=== PATIENT | female | born 1970 | race Caucasian/White ===

== ENCOUNTER 2020-04-04 22:52 | Inpatient (IN) | payer MEDICARE, MEDICAID, SELFPAY ==
[2020-04-04 23:02] VITALS: BP 118/77; PULSE 98; RESP 18; TEMP 36.1; O2SAT 97; BMI 25.0
--- NOTE | 2020-04-04 23:16 | W.ED.PSYCH ---
HPI - Psych General: Chief Complaint: Psychiatric Symptoms Stated Complaint: SEEING THINGS Time Seen by Provider: 04/04/20 22:58 History of Present Illness: HPI Narrative: Patient is a 49-year-old female who comes to the ED via EMS with paranoia and hallucinations. Patient reports hearing voices that are not there that keep telling her that she won the lottery. She also says there is this man that can control her mind and spies on her through her phone. She also says that this mariposa wants the home that she lives in currently. Patient says she has a history of drug abuse and has used cocaine and meth in the past. Denies any recent drug use. Patient says last night she was suicidal but denies SI or HI today. She says she takes risperidone currently, but was in incarcerated for 6 days little over a week ago and was not allowed to take her meds then. She says she took a dose of risperidone last night. Patient says she is willing to be admitted into stress unit and knows that she needs help with her voices in her head. Associated symptoms: Reports auditory hallucinations and visual hallucinations; Deny homicidal ideation or suicidal ideation Review of Systems Const: Denies: fever(s), chills or fatigue Eyes: Denies: change in vision or eye discomfort ENMT: Denies: throat pain, odynophagia, nasal discharge or nasal congestion Card: Denies: chest pain, palpitations, edema, swelling of feet/ankles, dyspnea on exertion or orthopnea Resp: Denies: dyspnea, productive cough or non-productive cough GI: Denies: abdominal pain, nausea, vomiting, diarrhea, constipation or hematochezia : Denies: flank pain, dysuria or hematuria Musc: Denies: neck pain, back pain or extremity swelling Skin/Breast: Denies: rash or new lesions Neuro: Denies: headache(s), numbness in extremities or weakness in extremities Psych: Reports: anxiety, paranoia, visual hallucinations and auditory hallucinations; Denies: suicidal ideation or homicidal ideation Physical Exam Const: COMMON NORMALS: no acute distress, patient oriented x3 and alert EXAM LIMITATIONS: altered mental status (Patient is having auditory and visual hallucinations.) GENERAL APPEARANCE: cooperative, comfortable and anxious HENMT: COMMON NORMALS: normocephalic HEAD & SCALP: normocephalic MOUTH: Normal oral and palatal mucosa present THROAT: posterior oropharynx normal and uvula midline Eye: COMMON NORMALS: Equal, round and reactive pupils present PUPIL: Yes Equal, round and reactive pupils present Neck/C-Spine: COMMON NORMALS: supple GENERAL: Yes normal visual inspection Resp: COMMON NORMALS: normal respiratory effort, No retractions, No use of accessory muscles and clear to auscultation bilaterally AUSCULTATION: clear to auscultation bilaterally Cardio: COMMON NORMALS: regular rate, regular rhythm, S1 normal heart sound present, S2 normal heart sound present, No gallops present (Cardio), No clicks present (Cardio), No murmurs present (Cardio) and Peripheral pulses 2+ throughout RATE: regular rate RHYTHM: regular rhythm HEART SOUNDS: S1 normal heart sound present and S2 normal heart sound present PERIPHERAL PULSES: Peripheral pulses 2+ throughout GI: COMMON NORMALS: Normal to inspection, nondistended, normoactive bowel sounds present, Soft to palpation, non-tender and no masses PALPATION: Yes Soft to palpation : COMMON NORMALS: Yes no CVA tenderness BLADDER/KIDNEY EXAM: Yes no CVA tenderness Back/Pelvis: COMMON NORMALS: no CVA tenderness Extremity: COMMON NORMALS: normal to inspection Neuro: COMMON NORMALS: patient oriented x3 and moves all extremities SENSORIUM/ORIENTATION: Yes alert Psych: APPEARANCE: Yes grossly normal ATTITUDE: Yes paranoid ACTIVITY/MOTOR BEHAVIOR: Yes fidgeting, Yes hyperactivity and Yes restless SPEECH: Yes excessive and Yes rapid MOOD & AFFECT: Yes elevated mood and Yes anxious THOUGHT PROCESS: Illogical thought process present THOUGHT CONTENT: Yes delusions Delusional thought content details: paranoid (There is a mariposa she knows that can control her mind and is haunting her house.) and Yes Hallucination(s) present (She hears voices telling her that she won the lottery.) auditory and visual (She sees things flashing up on her phone from this mariposa) ATTENTION/CONCENTRATION: Yes attention grossly intact and Yes concentration grossly intact MEMORY/COGNITION: Yes memory grossly intact and Yes cognition grossly intact INSIGHT: Limited insight present (Psych) JUDGEMENT: Limited judgement present (Psych) Skin: GENERAL SKIN EXAM: dry skin MDM - Psych MDM Narrative: Medical decision making narrative: Patient is a 49-year-old female who comes to the ED via EMS with hallucinations and paranoia. She also admits to being suicidal yesterday but says she is currently not suicidal. Exam shows very hyper and fidgety 49-year-old female with rapid and excessive speech. She is talking about a man that haunts her house and is constantly spying on her and can control her mind. She also states she hears voices telling her she won the lottery. Patient did admit to methamphetamine use recently. Patient willingly wants to be admitted and knows she needs to get help. I contacted Dr. Lunsford and told about patient case and he accepts admission of patient into the NPU. Dr. Potter will be placing the admitting orders. Lab Data: Attestation: I reviewed the patient's lab results. Labs: Lab Results 04/04/20 04/04/20 04/04/20 Range/Units 23:40 23:40 23:40 WBC (4.0-10.0) 10^3/ uL RBC (4.1-5.3) 10^6/u L Hgb (11.5-15.3) g/dL Hct (37.0-47.0) % MCV (81-99) fL MCH (28.0-34.0) pg MCHC (30.0-36.0) g/dL RDW (12.1-15.1) % Plt Count (130-400) 10^3/c mm MPV (7.4-10.4) fL Neut % (Auto) % Lymph % (Auto) % Schley % (Auto) % Eos % (Auto) % Baso % (Auto) % Neut # (Auto) (1.8-7.7) 10^3/u L Lymph # (Auto) (0.8-4.8) 10^3/u L Schley # (Auto) (0.2-0.9) 10^3/u L Eos # (Auto) (0.0-0.8) 10^3/u L Baso # (Auto) (0.0-0.1) 10^3/u L Nucleated RBC % (a uto) % Nucleated RBCs # /100WBC Sodium (136-145) mmol/L Potassium (3.5-5.1) mmol/L Chloride (98-107) mmol/L Carbon Dioxide (22-29) mmol/L Anion Gap (5-19) BUN (6-20) mg/dL Creatinine (0.5-0.9) mg/dL GFR Calculation (90-130) mL/min Glucose (65-115) mg/dL Calculated Osmolal ity (285-295) mOsm/k g Calcium (8.5-10.5) mg/dL Total Bilirubin (0.15-1.2) mg/dL AST (0-32) U/L ALT (0-33) U/L Alkaline Phosphata se (35-105) IU/L Total Protein (6.6-8.7) g/dL Albumin (3.5-5.2) g/dL Globulin (1.3-4.6) g/dL HCG, Qual Negative (Negative) Urine Color Yellow (Yellow) Urine Appearance Clear (CLEAR) Urine pH 5 (5-7) Ur Specific Gravit y 1.015 (1.005-1.030) Urine Protein Neg (Negative) Urine Glucose (UA) Norm (Normal) Urine Ketones Negative (Negative) Urine Blood Neg (Negative) Urine Nitrate Negative (Negative) Urine Bilirubin Neg (Negative) Urine Urobilinogen Norm (Negative) mg/dL Ur Leukocyte Mily ase Negative (Negative) Urine RBC 0-4 H (0-2) /hpf Urine WBC None (0-5) /hpf Ur Squamous Epith Cells 0-4 H (0-5) /hpf Amorphous Sediment Trace /hpf Urine Bacteria Trace (NONE) /hpf Salicylates (3-10) mg/dL Urine Opiates Scre en Negative (Negative) ng/mL Acetaminophen (10-30) ug/mL Ur Barbiturates Sc reen Negative (Negative) ng/mL Ur Phencyclidine S crn Negative (Negative) ng/mL Ur Amphetamines Sc reen Positive H (Negative) ng/mL U Benzodiazepines Scrn Negative (Negative) ng/mL Urine Cocaine Scre en Negative (Negative) ng/mL U Marijuana (THC) Screen Negative (Negative) ng/mL Ethyl Alcohol (0-10) mg/dL 04/04/20 04/04/20 Range/Units 23:48 23:48 WBC 8.0 (4.0-10.0) 10^3/ uL RBC 4.54 (4.1-5.3) 10^6/u L Hgb 13.3 (11.5-15.3) g/dL Hct 41.3 (37.0-47.0) % MCV 91.0 (81-99) fL MCH 29.3 (28.0-34.0) pg MCHC 32.2 (30.0-36.0) g/dL RDW 13.7 (12.1-15.1) % Plt Count 294 (130-400) 10^3/c mm MPV 9.6 (7.4-10.4) fL Neut % (Auto) 53.6 % Lymph % (Auto) 33.1 % Schley % (Auto) 10.5 % Eos % (Auto) 1.7 % Baso % (Auto) 0.9 % Neut # (Auto) 4.29 (1.8-7.7) 10^3/u L Lymph # (Auto) 2.7 (0.8-4.8) 10^3/u L Schley # (Auto) 0.8 (0.2-0.9) 10^3/u L Eos # (Auto) 0.1 (0.0-0.8) 10^3/u L Baso # (Auto) 0.1 (0.0-0.1) 10^3/u L Nucleated RBC % (a uto) 0 % Nucleated RBCs # 0.0 /100WBC Sodium 139 (136-145) mmol/L Potassium 3.5 (3.5-5.1) mmol/L Chloride 102 (98-107) mmol/L Carbon Dioxide 30 H (22-29) mmol/L Anion Gap 10.5 (5-19) BUN 7 (6-20) mg/dL Creatinine 0.6 (0.5-0.9) mg/dL GFR Calculation 107.2 (90-130) mL/min Glucose 83 (65-115) mg/dL Calculated Osmolal ity 285 (285-295) mOsm/k g Calcium 8.9 (8.5-10.5) mg/dL Total Bilirubin 0.2 (0.15-1.2) mg/dL AST 23 (0-32) U/L ALT 24 (0-33) U/L Alkaline Phosphata se 88 (35-105) IU/L Total Protein 7.2 (6.6-8.7) g/dL Albumin 4.0 (3.5-5.2) g/dL Globulin 3.2 (1.3-4.6) g/dL HCG, Qual (Negative) Urine Color (Yellow) Urine Appearance (CLEAR) Urine pH (5-7) Ur Specific Gravit y (1.005-1.030) Urine Protein (Negative) Urine Glucose (UA) (Normal) Urine Ketones (Negative) Urine Blood (Negative) Urine Nitrate (Negative) Urine Bilirubin (Negative) Urine Urobilinogen (Negative) mg/dL Ur Leukocyte Mily ase (Negative) Urine RBC (0-2) /hpf Urine WBC (0-5) /hpf Ur Squamous Epith Cells (0-5) /hpf Amorphous Sediment /hpf Urine Bacteria (NONE) /hpf Salicylates < 0.3 L (3-10) mg/dL Urine Opiates Scre en (Negative) ng/mL Acetaminophen < 5.0 L (10-30) ug/mL Ur Barbiturates Sc reen (Negative) ng/mL Ur Phencyclidine S crn (Negative) ng/mL Ur Amphetamines Sc reen (Negative) ng/mL U Benzodiazepines Scrn (Negative) ng/mL Urine Cocaine Scre en (Negative) ng/mL U Marijuana (THC) Screen (Negative) ng/mL Ethyl Alcohol < 10 (0-10) mg/dL Discharge Plan Discharge Admit Provider: Cass Lunsford Coding Level of Care Code ED Metal Ceiling Builder for Chg Fwd Exam Comprehensive
[2020-04-05] MEDS: LORazepam 2 mg Tablet PO (00:09)
[2020-04-05 00:14] LABS: Basophils # 0.1 10^3/uL (0.0-0.1); Basophils % 0.9 %; Eosinophils # 0.1 10^3/uL (0.0-0.8); Eosinophils % 1.7 %; Hematocrit 41.3 % (37.0-47.0); Hemoglobin 13.3 g/dL (11.5-15.3); Lymphocytes # 2.7 10^3/uL (0.8-4.8); Lymphocytes % 33.1 %; Mean Corpuscular HGB Conc 32.2 g/dL (30.0-36.0); Mean Corpuscular Hemoglobin 29.3 pg (28.0-34.0); Mean Platelet Volume 9.6 fL (7.4-10.4); Monocytes # 0.8 10^3/uL (0.2-0.9); Monocytes % 10.5 %; Neutrophils # 4.29 10^3/uL (1.8-7.7); Neutrophils % 53.6 %; Nucleated Red Blood Cells % 0 %; Platelet Count 294 10^3/cmm (130-400); Red Blood Count 4.54 10^6/uL (4.1-5.3); Red Cell Distribution Width 13.7 % (12.1-15.1)
[2020-04-05 00:24] LABS: HCG, Serum Qual Negative (Negative)
[2020-04-05 00:25] LABS: Bilirubin Urine Neg (Negative); Blood Urine Neg (Negative); Glucose Urine UA Norm (Normal); Ketones Urine Negative (Negative); Leukocyte Esterase Urine Negative (Negative); Nitrate Urine Negative (Negative); Protein Urine Neg (Negative); Specific Gravity, Urine 1.015 (1.005-1.030); Urine Appearance Clear (CLEAR); Urine Color Yellow (Yellow); Urobilinogen Urine Norm (Negative); pH Urine 5 (5-7)
[2020-04-05 00:26] LABS: Amphetamines Screen Urine Positive (Negative); Barbiturates Screen Urine Negative (Negative); Benzodiazepines Screen Urine Negative (Negative); Cocaine Screen Urine Negative (Negative); Opiate Screen Urine Negative (Negative); PCP Screen Urine Negative (Negative); THC Screen Urine Negative (Negative)
[2020-04-05 00:36] LABS: Add Urine Culture? No; Amorphous Sediment Urine TRACE /hpf; Bacteria Urine TRACE /hpf; RBC Urine 0-4 /hpf (0-2); Squamous Epithelial Cell Urine 0-4 /hpf (0-5)
[2020-04-05 00:37] LABS: Alanine Aminotransferase 24 U/L (0-33); Alkaline Phosphatase 88 IU/L (35-105); Anion Gap 10.5 (5-19); Aspartate Amino Transferase 23 U/L (0-32); Blood Urea Nitrogen 7 mg/dL (6-20); Calcium 8.9 mg/dL (8.5-10.5); Carbon Dioxide 30 mmol/L (22-29); Chloride 102 mmol/L (98-107); Globulin 3.2 g/dL (1.3-4.6); Glomerular Filtration Rate 107.2 mL/min (90-130); Glucose 83 mg/dL (65-115); Osmolality Calculated 285 mOsm/kg (285-295); Potassium 3.5 mmol/L (3.5-5.1); Sodium 139 mmol/L (136-145); Total Bilirubin 0.2 mg/dL (0.15-1.2); Total Protein 7.2 g/dL (6.6-8.7)
[2020-04-05 00:41] LABS: Acetaminophen < 5.0 ug/mL (10-30); Alcohol Level < 10 mg/dL (0-10); Salicylate < 0.3 mg/dL (3-10)
[2020-04-05 01:48] VITALS: BP 118/67; PULSE 97; RESP 18; O2SAT 98
[2020-04-05 02:05] VITALS: BP 128/79; PULSE 87; RESP 18; TEMP 36.7; O2SAT 100
[2020-04-05 06:00] VITALS: BP 128/79; PULSE 97; RESP 18; TEMP 36.7; O2SAT 100
--- NOTE | 2020-04-05 07:06 | PC.NURSE ---
Phone call to Dr. Lunsford to review meds. Hold all home meds until confirmed with the patient's pharmacy.
--- NOTE | 2020-04-05 11:36 | P.HP_ITS ---
Providers/Chief Complaint Admitting Physician: Cass Lunsford DO Chief Complaint: SEEING THINGS HPI NPU History of Present Illness Halima Hernandez is a 49 year old female with unclear past psychiatric history, methamphetamine abuse, alcohol abuse presented to the emergency department with report of visual hallucinations and recent suicidal ideation. Patient is a difficult historian, restless and speaking nonsensically at times about recent events to include being in longterm. Patient reports being off of her medication but also reports recent methamphetamine use. Patient currently denies any depressed symptoms, denies any suicidal ideation although she does report recently having suicidal thoughts. Patient denies current visual hallucinations but does report recent visual hallucinations and auditory hallucinations. Reports some anxiety about recent events but denies any sustained anxiety, denie s any recent panic symptoms Psychiatric review of systems is otherwise negative. Patient not able to clearly report current living arrangement or how she is supporting herself. Review of Systems General: Reports: 10 or more systems reviewed and unremarkable except in HPI and below Meds NPU Allergies Allergy/AdvReac Type Severity Reaction Status Date / Time No Known Allergies Allergy Verified 04/04/20 23:07 [facility] Other Psychiatric History: Other Psychiatric History: Reports first contact with mental health was age 16, states multiple psychiatric hospitalizations, last psychiatric hospitalization was over a year ago Denies any history of suicide attempts but does report past self-harm behavior Mental Status Exam MSE Comments: Lying in bed, unkempt, disheveled, multiple excoriations on her hands and arms, poor eye contact Psychomotor activity is restless, no agitation Speech is intermittent, low volume, normal rate, fair articulation, not pressured I feel horrible, congruent affect, not labile Alert and oriented to person, place Memory and concentration are poor Intellectual functioning is below average to average based on vocabulary, interview Thought process, delays, circumstantial Thought content, no delusions, does not appear to be attending to any internal stimuli, no suicidal or homicidal ideation Insight and judgment appear to be poor to fair at best Vitals/I&O/Wt Last Vital Signs Temp 98.1 F 04/05/20 06:00 Pulse 97 04/05/20 06:00 Resp 18 04/05/20 06:00 BP 128/79 04/05/20 06:00 Pulse Ox 100 04/05/20 06:00 Weight last 48 hrs Weight 68.039 kg Data NPU : 04/04/20 23:48 02/15/21 23:48 A&P Assessment and plan (1) Psychotic disorder: Status: Acute Qualifiers: Psychosis type: unspecified psychosis type Qualified Code(s): F29 - Unspecified psychosis not due to a substance or known physiological condition (2) Methamphetamine abuse: Status: Acute Additional A&P Information Patient with psychotic symptoms with unclear past psychiatric history, history of methamphetamine abuse, alcohol abuse presenting with perceptual disturbances. VOLUNTARY ADMIT to inpatient psychiatry START risperidone 0.25 mg twice daily targeting psychotic symptoms Coordinate with social work for post discharge follow-up Involuntary Hold Information 96 Hour Hold: 96 Hour Involuntary Admission: No Attestations NPU Medical Necessity Statement*: Patient requires psychiatric hospitalization for medication stabilization as well as ensuring safe discharge which includes coordinating for psychiatric follow-up Coding Level of Care Code Acute Aitchbone Breaker for Elke Ortiz Diagnoses Psychotic disorder F29 Psychosis type: unspecified psychosis type Methamphetamine abuse F15.10
[2020-04-05] MEDS: multivitamin therapeutic Tablet 1 TAB PO (12:01)
[2020-04-05 13:39] VITALS: BP 128/71; PULSE 71; RESP 16; TEMP 37.1; O2SAT 100
[2020-04-05] MEDS: nicotine 21 mg Patch 1 PATCH TRANSDERMA (15:25)
[2020-04-05] MEDS: hyDROXYzine 25 mg Capsule 50 MG PO (20:34)
[2020-04-05] MEDS: trazodone 50 mg Tablet PO (20:34)
[2020-04-05] MEDS: risperiDONE 0.25 mg Tablet PO (20:35)
[2020-04-05 20:38] VITALS: BP 138/87; PULSE 102; RESP 20; TEMP 36.8; O2SAT 100
--- NOTE | 2020-04-06 00:37 | PC.NURSE ---
PM ASSESSMENT PT V/S ARE WNL, HEART SOUNDS NORMAL S1 AND S2, LUNG SOUNDS ARE DIMINISHED. PT STATES HER FIBROMYALGIA IS ACTING UP AND RATED PAIN A 8 ON A 1-10 PAIN SCALE, MED NURSE NOTIFIED. PT DENIES SI/HI, DENIES AH/VH, PT REQUESTED A HOT SHOWER BUT THE WATER WAS NOT HOT ENOUGH TO PROVIDE RELIEF TO PT. WILL CONTINUE TO MONITOR
[2020-04-06] MEDS: acetaminophen 325 mg Tablet 650 MG PO (04:43)
[2020-04-06] MEDS: hyDROXYzine 25 mg Capsule 50 MG PO (04:43)
--- NOTE | 2020-04-06 04:50 | PC.NURSE ---
Pain PT states she has a history of fibromyalgia. She is yelling from her room for the nurse. Nurse evaluated pain, rated at a 10 on 1-10 pain scale, med nurse notified
[2020-04-06 06:00] VITALS: BP 130/74; PULSE 94; RESP 18; TEMP 36.2; O2SAT 98
[2020-04-06] MEDS: risperiDONE 0.25 mg Tablet PO (08:42)
[2020-04-06] MEDS: multivitamin therapeutic Tablet 1 TAB PO (08:42)
[2020-04-06 11:33] VITALS: BP 130/74; PULSE 94; RESP 18; TEMP 36.2; O2SAT 98
--- NOTE | 2020-04-06 11:36 | PC.NURSE ---
AMA Patient left AMA. Documents signed. Physician aware. Friend picked her up and she was given her belongings
--- NOTE | 2020-04-06 12:16 | PM.NDC ---
Diagnoses at Discharge Discharge Diagnosis (1) Psychotic disorder: Status: Acute Qualifiers: Psychosis type: unspecified psychosis type Qualified Code(s): F29 - Unspecified psychosis not due to a substance or known physiological condition (2) Methamphetamine abuse: Status: Acute Reason for Visit Reason for Visit: SEEING THINGS Hospital Course Hospital Course 49-year-old female with unclear past psychiatric history presented to the emergency department with visual hallucinations and positive urine drug screen for methamphetamine. Patient was somewhat fidgety but was no longer endorsing any visual or auditory hallucinations and no delusions. Patient was initially rambling nonsensically but was started on risperidone 0.25 mg twice daily and quickly reconstituted. The following day she demanded to leave AGAINST MEDICAL ADVICE. Patient was able to communicate her understanding of the risks, benefits and alternatives and consequences of her medical decision making at which time she decided to leave AGAINST MEDICAL ADVICE. Involuntary Hold Information 96 Hour Hold: 96 Hour Involuntary Admission: No Mental Status Exam MSE Comments: Sitting up in bed, disheveled, fair eye contact Psychomotor activity is restless, no agitation Speech is normal rate and volume, fair articulation, not pressured I feel okay, congruent affect, not labile Alert and oriented to person, place, time Memory and concentration are fair Thought process, occasional delays, linear but brief, no flight of ideas Thought content, no delusions, no hallucinations, no suicidal or homicidal ideation Insight and judgment appear to be poor to fair at best Discharge Data Vitals: Last Vital Signs Temp 97.2 F L 04/06/20 11:33 Pulse 94 04/06/20 11:33 Resp 18 04/06/20 11:33 BP 130/74 04/06/20 11:33 Pulse Ox 98 04/06/20 11:33 Discharge Plan Discharge Patient Disposition: Home Condition: Stable Referrals: [facility] (Dr. Arias) [Other] - 04/15/20 11:20 am (You have a hospital follow up with Dr. Arias on 04/15/2020 @ 11:20 AM.) [facility] [Outside] (You have an appointment with Dr. Mcdonald on ) [facility] – [place] [facility] [Outside] (Follow up for an initial assessment.) [facility] [Outside] (Resource for inpatient or outpatient substance abuse treatment.) Discharge Attestations NPU Time Spent in Discharge Care*: greater than 30 min Coding Level of Care Code Acute Continuous Wave Operator for Chg Fwd Diagnoses Psychotic disorder F29 Psychosis type: unspecified psychosis type Methamphetamine abuse F15.10
== END 2020-04-06 11:37 | disposition left against medical advice (07) | DRG 885 ==
LOC: ER 23:07 → NP 04-05 08:33
PROVIDERS: Admitting Provider Psychiatry & Neurology Psychiatry; Emergency Provider Physician Assistant; Visit Provider Psychiatry & Neurology Psychiatry
DX: F23 Brief psychotic disorder (principal); Z53.29 Procedure and treatment not carried out because of patient's decision for other reasons; F15.229 Other stimulant dependence with intoxication, unspecified
CPT/HCPCS: 80053; 80306; 80307; 81001; 84703; 85025; 99285

== ENCOUNTER 2020-08-07 00:10 | Emergency (ER) | payer MEDICARE, MEDICAID, SELFPAY ==
[2020-08-07] VITALS (8 sets, daily range): BP systolic 100–117; BP diastolic 59–72; PULSE 87–105; RESP 16–20; TEMP 36.7–37.9; O2SAT 97–98; BMI 22.4
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
[2020-08-07] MEDS: sodium chloride 0.9% 1,000 ML 999 ML IV (02:00)
[2020-08-07 02:48] LABS: Add Urine Microscopic? NO; Charge for UA Resulting for Rev
[2020-08-07] MEDS: ondansetron 2 mg/ML SDV 2 mL 4 MG IVP (02:49)
[2020-08-07] MEDS: ketorolac 30 mg/mL INJ 15 MG IVP (02:50)
[2020-08-07 02:52] LABS: Basophils % 0.6 %; Hematocrit 33.5 % (37.0-47.0); Hemoglobin 11.1 g/dL (11.5-15.3); Lymphocytes # 0.6 10^3/uL (0.8-4.8); Mean Corpuscular HGB Conc 33.1 g/dL (30.0-36.0); Mean Corpuscular Hemoglobin 30.6 pg (28.0-34.0); Mean Corpuscular Volume 92.3 fL (81-99); Mean Platelet Volume 10.8 fL (7.4-10.4); Monocytes # 0.4 10^3/uL (0.2-0.9); Monocytes % 11.2 %; Neutrophils # 2.47 10^3/uL (1.8-7.7); Neutrophils % 70.8 %; Nucleated Red Blood Cells % 0 %; Platelet Count 128 10^3/cmm (130-400); Red Blood Count 3.63 10^6/uL (4.1-5.3); White Blood Count 3.5 10^3/uL (4.0-10.0)
[2020-08-07 03:02] LABS: Bilirubin Urine Neg (Negative); Blood Urine Neg (Negative); Glucose Urine UA Norm (Normal); Ketones Urine Negative (Negative); Leukocyte Esterase Urine Negative (Negative); Nitrate Urine Negative (Negative); Protein Urine Neg (Negative); Sulfosalicylic Acid Urine Negative (Negative); Urine Appearance Clear (CLEAR); Urine Color Yellow (Yellow); Urobilinogen Urine Norm (Negative); pH Urine 8 (5-7)
[2020-08-07 03:03] LABS: Amphetamines Screen Urine Negative (Negative); Barbiturates Screen Urine Negative (Negative); Benzodiazepines Screen Urine Negative (Negative); Cocaine Screen Urine Negative (Negative); Opiate Screen Urine Negative (Negative); PCP Screen Urine Negative (Negative); THC Screen Urine Negative (Negative)
[2020-08-07 03:18] LABS: Alanine Aminotransferase 28 U/L (0-33); Albumin Level 3.7 g/dL (3.5-5.2); Alkaline Phosphatase 68 IU/L (35-105); Anion Gap 11.9 (5-19); Aspartate Amino Transferase 38 U/L (0-32); Blood Urea Nitrogen 4 mg/dL (6-20); C Reactive Protein 1.5 mg/L (0.0-4.9); Calcium 8.2 mg/dL (8.5-10.5); Carbon Dioxide 27 mmol/L (22-29); Chloride 98 mmol/L (98-107); Creatine Phosphokinase 68 U/L (26-192); Globulin 2.3 g/dL (1.3-4.6); Glomerular Filtration Rate 171.1 mL/min (90-130); Glucose 87 mg/dL (65-115); Osmolality Calculated 272 mOsm/kg (285-295); Potassium 3.9 mmol/L (3.5-5.1); Sodium 133 mmol/L (136-145); Total Bilirubin 0.3 mg/dL (0.15-1.2)
[2020-08-07 03:20] LABS: SARS Covid-2 Antigen Positive (Negative)
[2020-08-07 03:23] LABS: Procalcitonin 0.05 ng/mL (0-0.5)
[2020-08-07 03:24] LABS: INR 1.07 (0.8-1.2)
[2020-08-07 03:25] LABS: Partial Thromboplastin Time 38.9 SECONDS (23.9-36.7)
[2020-08-07] MEDS: oxyCODONE-APAP 5-325 mg Tablet 2 TAB PO (04:29)
== END 2020-08-07 04:49 | disposition home or self-care (01) ==
PROVIDERS: Emergency Provider Emergency Medicine; PCP Family Medicine
DX: U07.1 COVID-19 (principal)
CPT/HCPCS: 36415; 80053; 80306; 81003; 82550; 84145; 85025; 85610; 85730; 86140; 87426; 96361; 96374; 96375; 99284; J1885; J2405; J7030

== ENCOUNTER 2020-10-18 15:38 | Outpatient (CLI) | payer MEDICARE, MEDICAID, SELFPAY ==
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
== END 2020-10-18 15:39 | disposition home or self-care (01) ==
LOC: RADSHAW 15:44
PROVIDERS: PCP Family Medicine; Visit Provider Family Medicine
DX: R44.1 Visual hallucinations (principal); R44.0 Auditory hallucinations; Z87.828 Personal history of other (healed) physical injury and trauma; R56.9 Unspecified convulsions
CPT/HCPCS: 70551

== ENCOUNTER 2021-08-07 01:47 | Emergency (ER) | payer MEDICARE, MEDICAID, SELFPAY ==
[2021-08-07 01:55] VITALS: BP 181/77; PULSE 92; RESP 18; TEMP 36.7; O2SAT 97; BMI 21.2
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
[2021-08-07] MEDS: orphenadrine 30 mg/mL Inj 2 mL 60 MG IM (02:56)
[2021-08-07 03:51] VITALS: BP 169/74; PULSE 84; RESP 18; TEMP 37.2; O2SAT 99
== END 2021-08-07 03:52 | disposition home or self-care (01) ==
PROVIDERS: Emergency Provider Physician Assistant; PCP Family Medicine
DX: M25.512 Pain in left shoulder (principal); Y04.8XXA Assault by other bodily force, initial encounter; Y92.59 Other trade areas as the place of occurrence of the external cause; Z72.89 Other problems related to lifestyle
CPT/HCPCS: 71101; 73030; 96372; 99283; J2360

== ENCOUNTER 2021-08-08 12:52 | Inpatient (IN) | payer MEDICARE, MEDICAID, SELFPAY ==
[2021-08-08] VITALS (8 sets, daily range): BP systolic 96–141; BP diastolic 51–89; PULSE 68–107; RESP 18–22; TEMP 36.6–37.2; O2SAT 90–99; BMI 19.9
--- NOTE | 2021-08-08 13:33 | ED.C_ITS ---
HPI - Psych General: Chief Complaint: Psychiatric Symptoms Stated Complaint: SI Eval Time Seen by Provider: 08/08/21 13:11 History of Present Illness: Patient is a 50-year-old female comes to the ED with SI. Patient has a history of psychotic disorder methamphetamine abuse. She states that she has not been taking any of her psych meds since she has been drinking alcohol a lot lately. He endorses having thoughts of suicide but does not currently have a plan. Endorses some auditory hallucinations that she describes as a man's voice in her head that helps her through her life and helps make decisions for her. She also has occasional evil and dark hallucinations. Admits to being a daily alcohol drinker and says she will drink well over 15-20 beers a day. Denies any recent drug use. Associated symptoms: Reports auditory hallucinations, visual hallucinations and suicidal ideation Review of Systems Const: Denies: fever(s), chills or fatigue Eyes: Denies: change in vision or eye discomfort ENMT: Denies: throat pain, odynophagia, nasal discharge or nasal congestion Card: Denies: chest pain, palpitations, edema, swelling of feet/ankles, dyspnea on exertion or orthopnea Resp: Denies: dyspnea, productive cough or non-productive cough GI: Denies: abdominal pain, nausea, vomiting, diarrhea, constipation or h ematochezia : Denies: flank pain, dysuria or hematuria Musc: Denies: neck pain, back pain or extremity swelling Skin/Breast: Denies: rash or new lesions Neuro: Denies: headache(s), numbness in extremities or weakness in extremities Psych: Reports: visual hallucinations, auditory hallucinations and suicidal ideation [facility] ED PFSH: Medical History Alcohol abuse Bipolar disorder with psychotic features Methamphetamine abuse Surgical History Gastric bypass status for obesity Social History Smoking and tobacco status: current every day smoker Alcohol intake: current Physical Exam Const: COMMON NORMALS: patient oriented x3 and alert OTHER: Patient is hyperactive and very fidgety and is likely intoxicated from the recent meth use given her history. HENMT: COMMON NORMALS: normocephalic HEAD & SCALP: normocephalic MOUTH: Normal oral and palatal mucosa present THROAT: posterior oropharynx normal and uvula midline Neck/C-Spine: COMMON NORMALS: supple GENERAL: Yes normal visual inspection Resp: COMMON NORMALS: normal respiratory effort, No retractions, No use of accessory muscles and clear to auscultation bilaterally AUSCULTATION: clear to auscultation bilaterally Cardio: COMMON NORMALS: regular rate, regular rhythm, S1 normal heart sound present, S2 normal heart sound present, No gallops present (Cardio), No clicks present (Cardio), No murmurs present (Cardio) and Peripheral pulses 2+ throughout RATE: regular rate RHYTHM: regular rhythm HEART SOUNDS: S1 normal heart sound present and S2 normal heart sound present PERIPHERAL PULSES: Peripheral pulses 2+ throughout GI: COMMON NORMALS: Normal to inspection, nondistended, normoactive bowel sounds present, Soft to palpation, non-tender and no masses PALPATION: Yes Soft to palpation : COMMON NORMALS: Yes no CVA tenderness BLADDER/KIDNEY EXAM: Yes no CVA tenderness Back/Pelvis: COMMON NORMALS: no CVA tenderness Extremity: COMMON NORMALS: normal to inspection and no pedal edema Neuro: COMMON NORMALS: patient oriented x3 and moves all extremities SENSORIUM/ORIENTATION: Yes alert Psych: COMMON NORMALS: Normal thought process present APPEARANCE: Yes grossly normal ATTITUDE: Yes engaged ACTIVITY/MOTOR BEHAVIOR: Yes fidgeting, Yes hyperactivity and Yes restless SPEECH: Yes excessive and Yes rapid MOOD & AFFECT: Yes elevated mood THOUGHT PROCESS: Normal thought process present THOUGHT CONTENT: Yes Suicidality present and Yes Hallucination(s) present auditory and visual ATTENTION/CONCENTRATION: Yes attention grossly intact and Yes concentration grossly intact MEMORY/COGNITION: Yes memory grossly intact and Yes cognition grossly intact INSIGHT: Limited insight present (Psych) JUDGEMENT: Limited judgement present (Psych) Skin: GENERAL SKIN EXAM: dry skin Course Vital Signs: Vital signs: Vital Signs Temperature 98 F 08/08/21 13:55 Pulse Rate 86 08/08/21 15:25 Respiratory Rate 18 08/08/21 15:25 Blood Pressure 96/51 08/08/21 15:25 Pulse Oximetry 99 08/08/21 15:25 MDM - Psych Medical Decision Making Patient is a 50-year-old female comes to the ED with SI and auditory and visual hallucinations. Patient has a history of methamphetamine abuse and alcohol abuse. She is not currently taking her past prescribed psych meds. Patient willingly wants to be admitted stress unit to get help. Vitals are stable. Exam shows a fidgety, hyperactive and restless female with excessive and rapid speech. Screening labs performed and patient had an alcohol level of 224 and had positive amphetamines in urine. IV banana bag started here in the ED. Rest of exam is benign. PatientI contacted Dr. Paniagua and told about patient case and he agreed to have patient admitted to NPU. Lab Data I reviewed the patient's lab results. : 08/08/21 13:45 08/08/21 13:45 Laboratory Results WBC 5.1 10^3/uL (4.0-10.0) 08/08/21 13:45 RBC 3.91 10^6/uL (4.1-5.3) L 08/08/21 13:45 Hgb 12.0 g/dL (11.5-15.3) 08/08/21 13:45 Hct 35.1 % (37.0-47.0) L 08/08/21 13:45 MCV 89.8 fl (81-99) 08/08/21 13:45 MCH 30.7 pg (28.0-34.0) 08/08/21 13:45 MCHC 34.2 g/dL (30.0-36.0) 08/08/21 13:45 RDW 14.1 % (12.1-15.1) 08/08/21 13:45 Plt Count 158 10^3/cmm (130-400) 08/08/21 13:45 MPV 9.2 fL (7.4-10.4) 08/08/21 13:45 Neut % (Auto) 45.0 % 08/08/21 13:45 Lymph % (Auto) 38.7 % 08/08/21 13:45 Alpine % (Auto) 13.3 % 08/08/21 13:45 Eos % (Auto) 1.2 % 08/08/21 13:45 Baso % (Auto) 1.4 % 08/08/21 13:45 Neut # (Auto) 2.31 10^3/uL (1.8-7.7) 08/08/21 13:45 Lymph # (Auto) 2.0 10^3/uL (0.8-4.8) 08/08/21 13:45 Alpine # (Auto) 0.7 10^3/uL (0.2-0.9) 08/08/21 13:45 Eos # (Auto) 0.1 10^3/uL (0.0-0.8) 08/08/21 13:45 Baso # (Auto) 0.1 10^3/uL (0.0-0.1) 08/08/21 13:45 Nucleated RBC % (auto) 0 % 08/08/21 13:45 Nucleated RBCs # 0.0 /100WBC 08/08/21 13:45 Sodium 139 mmol/L (136-145) 08/08/21 13:45 Potassium 3.4 mmol/L (3.5-5.1) L 08/08/21 13:45 Chloride 103 mmol/L (98-107) 08/08/21 13:45 Carbon Dioxide 23 mmol/L (22-29) 08/08/21 13:45 Anion Gap 16.4 (5-19) 08/08/21 13:45 BUN 3 mg/dL (6-20) L 08/08/21 13:45 Creatinine 0.5 mg/dL (0.5-0.9) 08/08/21 13:45 GFR Calculation 131.7 mL/min (90-130) H 08/08/21 13:45 Glucose 65 mg/dL (65-115) 08/08/21 13:45 Calculated Osmolality 283 mOsm/kg (285-295) L 08/08/21 13:45 Calcium 8.4 mg/dL (8.5-10.5) L 08/08/21 13:45 Total Bilirubin 0.2 mg/dL (0.15-1.2) 08/08/21 13:45 AST 197 U/L (0-32) H 08/08/21 13:45 ALT 98 U/L (0-33) H 08/08/21 13:45 Alkaline Phosphatase 101 IU/L (35-105) 08/08/21 13:45 Total Protein 6.9 g/dL (6.6-8.7) 08/08/21 13:45 Albumin 4.1 g/dL (3.5-5.2) 08/08/21 13:45 Globulin 2.8 g/dL (1.3-4.6) 08/08/21 13:45 Salicylates < 0.3 mg/dL (3-10) L 08/08/21 13:45 Acetaminophen < 5.0 ug/mL (10-30) L 08/08/21 13:45 Ethyl Alcohol 224 mg/dL (0-10) H 08/08/21 13:45 Discharge Plan Discharge Patient Disposition: Admitted As Inpatient Clinical Impression: Suicidal ideation, Hallucinations Condition: Stable Prescriptions: No Action divalproex 250 mg tablet,delayed release (DR/EC) 250 mg PO BID 0RF benztropine 1 mg tablet 1 mg PO BID 0RF trazodone 50 mg tablet 50 mg PO BEDTIME 0RF cyclobenzaprine 10 mg tablet 10 mg PO TID Qty: 14 0RF gabapentin 300 mg Capsule 300 mg PO TID 0RF omeprazole 20 mg Capsule,Delayed Release(Dr/Ec) 20 mg PO BID 0RF Referrals: Jaylen Salomon MD [Primary Care Provider] - Coding Level of Care Code ED Chief Payroll Clerk for Chg Fwd Exam Comprehensive
[2021-08-08 13:58] LABS: Basophils # 0.1 10^3/uL (0.0-0.1); Basophils % 1.4 %; Eosinophils # 0.1 10^3/uL (0.0-0.8); Eosinophils % 1.2 %; Hematocrit 35.1 % (37.0-47.0); Lymphocytes % 38.7 %; Mean Corpuscular HGB Conc 34.2 g/dL (30.0-36.0); Mean Corpuscular Hemoglobin 30.7 pg (28.0-34.0); Mean Corpuscular Volume 89.8 fl (81-99); Mean Platelet Volume 9.2 fL (7.4-10.4); Monocytes # 0.7 10^3/uL (0.2-0.9); Monocytes % 13.3 %; Neutrophils # 2.31 10^3/uL (1.8-7.7); Nucleated Red Blood Cells % 0 %; Platelet Count 158 10^3/cmm (130-400); Red Blood Count 3.91 10^6/uL (4.1-5.3); Red Cell Distribution Width 14.1 % (12.1-15.1); White Blood Count 5.1 10^3/uL (4.0-10.0)
[2021-08-08 14:13] LABS: Alanine Aminotransferase 98 U/L (0-33); Albumin Level 4.1 g/dL (3.5-5.2); Alcohol Level 224 mg/dL (0-10); Alkaline Phosphatase 101 IU/L (35-105); Anion Gap 16.4 (5-19); Aspartate Amino Transferase 197 U/L (0-32); Blood Urea Nitrogen 3 mg/dL (6-20); Calcium 8.4 mg/dL (8.5-10.5); Carbon Dioxide 23 mmol/L (22-29); Chloride 103 mmol/L (98-107); Globulin 2.8 g/dL (1.3-4.6); Glomerular Filtration Rate 131.7 mL/min (90-130); Glucose 65 mg/dL (65-115); Osmolality Calculated 283 mOsm/kg (285-295); Potassium 3.4 mmol/L (3.5-5.1); Sodium 139 mmol/L (136-145); Total Bilirubin 0.2 mg/dL (0.15-1.2); Total Protein 6.9 g/dL (6.6-8.7)
[2021-08-08 14:26] LABS: Acetaminophen < 5.0 ug/mL (10-30); Salicylate < 0.3 mg/dL (3-10)
[2021-08-08 16:10] LABS: Add Urine Microscopic? NO; Charge for UA Resulting for Rev
[2021-08-08 16:20] LABS: Amphetamines Screen Urine Negative (Negative); Barbiturates Screen Urine Negative (Negative); Benzodiazepines Screen Urine Negative (Negative); Cocaine Screen Urine Negative (Negative); Opiate Screen Urine Negative (Negative); PCP Screen Urine Negative (Negative); THC Screen Urine Negative (Negative)
[2021-08-08 16:26] LABS: Bilirubin Urine Neg (Negative); Blood Urine Neg (Negative); Glucose Urine UA Norm (Normal); Ketones Urine Negative (Negative); Leukocyte Esterase Urine Negative (Negative); Nitrate Urine Negative (Negative); Protein Urine Neg (Negative); Specific Gravity, Urine 1.005 (1.005-1.030); Urine Appearance Hazy (CLEAR); Urine Color Straw (Yellow); Urobilinogen Urine Norm (Negative); pH Urine 5 (5-7)
[2021-08-08] MEDS: folic acid 1 MG, multivitamin inj 10 ML, thiamine 100 MG in sodium chloride 0.9% 1,000 ML 252.8 MG IV (16:38)
[2021-08-08 16:59] LABS: HCG, Serum Qual Negative (Negative)
[2021-08-08] MEDS: ondansetron 4 MG Tablet PO (18:20)
--- NOTE | 2021-08-08 18:20 | PC.NURSE ---
PRN ZOFRAN 4 MG GIVEN PO PER PT C/O NAUSEA/VOMITING
--- NOTE | 2021-08-08 20:20 | PC.NURSE ---
CIWA score of 12 2mg PO atavan given.
[2021-08-08] MEDS: trazodone 50 mg Tablet PO (20:23)
[2021-08-08] MEDS: LORazepam 2 mg Tablet PO (20:24)
[2021-08-08] MEDS: acetaminophen 325 mg Tablet 650 MG PO (20:25)
[2021-08-09 06:00] VITALS: BP 116/74; PULSE 57; RESP 16; TEMP 36.6; O2SAT 96
[2021-08-09] MEDS: folic acid 1 mg Tablet PO (10:24)
[2021-08-09] MEDS: thiamine 100 mg Tablet PO (10:25)
[2021-08-09] MEDS: multivitamin therapeutic Tablet 1 TAB PO (10:25)
[2021-08-09] MEDS: divalproex ER 250 mg Tablet (24H) PO ×2 (10:25→16:13)
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
[2021-08-09 14:00] VITALS: BP 131/58; PULSE 93; RESP 18; O2SAT 98
[2021-08-09] MEDS: nicotine 21 mg Patch 1 PATCH TRANSDERMA (15:21)
[2021-08-09] MEDS: acetaminophen 325 mg Tablet 650 MG PO (16:13)
--- NOTE | 2021-08-09 16:19 | PC.NURSE ---
Wasted 50mg Vistaril pt refused medication and requested and ativan instead. Pt isn't showing signs of detoxing at this time.
[2021-08-09] MEDS: OLANZapine 5 mg ODT PO (18:09)
[2021-08-09] MEDS: gabapentin 300 mg Capsule PO (20:00)
[2021-08-09] MEDS: trazodone 50 mg Tablet PO (20:00)
[2021-08-09 21:04] VITALS: BP 101/41; PULSE 84; RESP 16; TEMP 36.9; O2SAT 99
[2021-08-10 06:00] VITALS: BP 106/66; PULSE 92; RESP 18; TEMP 36.6; O2SAT 96
[2021-08-10] MEDS: polyethylene glycol 3350 Pkt 17 gm PO ×2 (09:10→18:12)
[2021-08-10] MEDS: gabapentin 300 mg Capsule PO ×3 (09:11→20:13)
[2021-08-10] MEDS: divalproex ER 250 mg Tablet (24H) PO ×2 (09:12→18:12)
[2021-08-10] MEDS: multivitamin therapeutic Tablet 1 TAB PO (09:12)
[2021-08-10] MEDS: folic acid 1 mg Tablet PO (09:12)
[2021-08-10] MEDS: thiamine 100 mg Tablet PO (09:12)
[2021-08-10] MEDS: OLANZapine 5 mg ODT PO ×2 (09:53→15:29)
[2021-08-10] MEDS: nicotine 2 mg Gum BUCCAL ×2 (10:16→18:26)
[2021-08-10] MEDS: nicotine 21 mg Patch 1 PATCH TRANSDERMA (11:15)
[2021-08-10] MEDS: ondansetron 4 MG Tablet PO (13:45)
[2021-08-10 14:00] VITALS: BP 103/68; PULSE 79; RESP 17; TEMP 36.6; O2SAT 99
--- NOTE | 2021-08-10 15:23 | P.NPUPN_ITS ---
Subjective NPU Subjective: Patient presents today reporting that things are going a little better. She reports that she is been working with the treatment team and they have a few different options that seem available. There is a place called [facility] that might be able to take her. She reports the medication is working fairly well and she is starting to feel more optimistic about things moving forward. We discussed the possibility of discharge soon if a reasonable opportunity for sober living is identified. Mental Status Exam MSE Comments: This is a slender versus underweight white female in hospital scrubs with limited grooming/disheveled appearance but adequate eye contact. No abnormal movements except for mild psychomotor retardation. Cooperative with exam in no acute distress. Speech was normal rate and volume. Mood described as feeling better, affect is congruent and slightly subdued. Thought process, organized. Thought content: patient denies any suicidal or homicidal ideation, no delusions reported or noted, and denies any auditory or visual hallucinations. Attention and concentration are intact and memory is reliable but none were formally tested. She is alert and oriented three times. Insight and judgment are fair. Impulse control is limited.? Vitals/I&O/Wt Last Vital Signs Temp 98 F 08/10/21 14:00 Pulse 79 08/10/21 14:00 Resp 17 08/10/21 14:00 BP 103/68 08/10/21 14:00 Pulse Ox 99 08/10/21 14:00 Data NPU : 08/08/21 13:45 08/08/21 13:45 A&P Assessment and plan (1) Depression: Status: Acute (2) Alcohol use disorder, severe, dependence: Status: Acute (3) Suicidal ideation: Status: Acute (4) Hallucinations: Status: Acute (5) Methamphetamine abuse: Status: Acute Plan This is a 50 year old white female with a long history of alcohol addiction and significant life disruption secondary to alcohol use with mental health challenges for some period of time now who presents open to restarting her medications. We discussed the risks, benefits and alternatives of restarting her medications and she understood and agreed to proceed as is documented in this note. 1. Continue current medications. 2.? Encourage individual, group and milieu therapy 3. Continue q-15 minute check for safety 4. Recommend sober living treatment at the highest level of care to which the patient is willing to commit. Involuntary Hold Information 96 Hour Hold: 96 Hour Involuntary Admission: No Attestations NPU Medical Necessity Statement*: Inpatient hospitalization is medically necessary and the clinically appropriate intervention at this time. We will monitor medications and make changes as indicated. Likely length of stay is 2-4 days. Coding Level of Care Code Acute Director Advertising for [facility] Fwd Diagnoses Depression F32.A Alcohol use disorder, severe, dependence F10.20 Suicidal ideation R45.851 Hallucinations R44.3 Methamphetamine abuse F15.10
--- NOTE | 2021-08-10 15:30 | PC.NURSE ---
Administered 5mg Zyprexa Zydis for the pt experiencing anxiety.
[2021-08-10 20:09] VITALS: BP 108/72; PULSE 94; RESP 17; TEMP 36.6; O2SAT 97
[2021-08-10] MEDS: trazodone 50 mg Tablet PO (20:12)
[2021-08-10] MEDS: hyDROXYzine 25 mg Capsule 50 MG PO (20:12)
[2021-08-10] MEDS: acetaminophen 325 mg Tablet 650 MG PO (20:13)
[2021-08-11] MEDS: docusate sodium 100 mg Capsule PO (00:14)
[2021-08-11] MEDS: neomycin-poly-bacitracin oint 28 gm 1 APPLIC TOPICAL (00:14)
[2021-08-11] MEDS: OLANZapine 5 mg ODT PO ×2 (00:14→10:59)
[2021-08-11] MEDS: acetaminophen 325 mg Tablet 650 MG PO (00:14)
--- NOTE | 2021-08-11 00:17 | PC.NURSE ---
PT STATES ANXIETY IS STILL HIGH AND REQUEST MORE MEDICATION. PT ALSO COMPLAINS OF ABDOMINAL PAIN, STATES SHE HAS HAD TROUBLE GOING TO THE BATHROOM. OLANZAPINE, TYLENOL, AND DOCUSATE GIVEN. PT NOW BACK IN ROOM WITH SNACK
[2021-08-11 06:00] VITALS: BP 102/62; PULSE 62; RESP 16; TEMP 36.6; O2SAT 98
[2021-08-11] MEDS: multivitamin therapeutic Tablet 1 TAB PO (10:40)
[2021-08-11] MEDS: gabapentin 300 mg Capsule PO ×2 (10:40→14:44)
[2021-08-11] MEDS: divalproex ER 250 mg Tablet (24H) PO (10:40)
[2021-08-11] MEDS: thiamine 100 mg Tablet PO (10:40)
[2021-08-11] MEDS: nicotine 2 mg Gum BUCCAL (10:41)
[2021-08-11] MEDS: folic acid 1 mg Tablet PO (10:41)
[2021-08-11] MEDS: polyethylene glycol 3350 Pkt 17 gm PO (10:41)
[2021-08-11] MEDS: nicotine 21 mg Patch 1 PATCH TRANSDERMA (12:08)
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
[2021-08-11 14:00] VITALS: TEMP 36.6
--- NOTE | 2021-08-11 14:33 | DCPLANNER ---
IMM completed with pt on 08/11/21 @ 0179. Pt was given a copy of her rights and she stated she undertood her rights.
[2021-08-11 14:57] VITALS: BP 102/62; PULSE 62; RESP 16; TEMP 36.6; O2SAT 98
[2021-08-11 15:04] VITALS: BP 102/62; PULSE 62; RESP 16; TEMP 36.6; O2SAT 98
== END 2021-08-11 14:45 | disposition home or self-care (01) | DRG 881 ==
LOC: ER 16:21 → NP 20:49
PROVIDERS: Admitting Provider Psychiatry & Neurology Psychiatry; Emergency Provider Physician Assistant; PCP Family Medicine; Visit Provider Psychiatry & Neurology Psychiatry
DX: F32.A Depression, unspecified (principal); R45.851 Suicidal ideations; R44.3 Hallucinations, unspecified; F10.20 Alcohol dependence, uncomplicated; Y90.7 Blood alcohol level of 200-239 mg/100 ml; F15.10 Other stimulant abuse, uncomplicated; F17.210 Nicotine dependence, cigarettes, uncomplicated; Z81.8 Family history of other mental and behavioral disorders; Z81.4 Family history of other substance abuse and dependence; Z62.810 Personal history of physical and sexual abuse in childhood; Z59.02 Unsheltered homelessness; Z98.84 Bariatric surgery status
CPT/HCPCS: 71101; 73030; 80053; 80306; 80307; 81003; 84703; 85025; 96372; 97150; 97165; 99283; 99285; J2360; J3411; J3490; J7030; Q0162

== ENCOUNTER → 2021-08-17 15:58 | Outpatient (BNVA) | payer MEDICARE, MEDICAID, SELFPAY | PROVIDERS: PCP Family Medicine; Visit Provider Internal Medicine | DX: R74.8 Abnormal levels of other serum enzymes (principal); R10.9 Unspecified abdominal pain; R11.0 Nausea | CPT/HCPCS: 86705; 86706; 86709; 86803; 87340; 87522; 87902 ==

== ENCOUNTER 2021-11-29 05:50 | Emergency (ER) | payer MEDICARE, MEDICAID, SELFPAY ==
[2021-11-29 06:06] VITALS: BP 158/73; PULSE 111; RESP 18; TEMP 36.7; O2SAT 97; BMI 19.9
--- NOTE | 2021-11-29 06:29 | ED_ITS ---
HPI - General Adult General: Chief complaint: General Medical Stated complaint: painful bumps all over Time Seen by Provider: 11/29/21 06:02 Source: patient History of Present Illness: 51-year-old female presents emergency room with complaints of bumps all over her body she refers to several bony prominences spinous processes in the upper cervical and thoracic spine also at the AC joint and at the MP joints in her left hand and left foot. She does have some subcutaneous calcifications in her left lower leg laterally about the lateral malleolus which she is also referring to. She states all of these bumps are coming up and going through all new and different and are enlarging rapidly. She has a history of substance abuse including alcohol and methamphetamine she was hospitalized just a couple of months ago with her alcohol use. She denies any alcohol use at this time. She denies any suicidal or homicidal ideation. Onset (ago): minute(s) Location: head Radiation: non-radiation Severity: mild Relieving factors: none Exacerbating factors: none Associated symptoms: Deny chest pain, confusion, cough, diaphoresis, decreased appetite, dyspnea, fevers/chills, headache(s), malaise, nausea, rash, palpitations, seizures, short of breath, syncope, vomiting or weakness Treatments prior to arrival: none Review of Systems Const: Denies: fever(s), chills, fatigue, malaise or diaphoresis ENMT: Denies: throat pain, ear or mastoid pain, nasal discharge or nasal congestion Card: Denies: chest pain, palpitations or syncope Resp: Denies: dyspnea GI: Denies: abdominal pain, nausea or vomiting : Denies: flank pain, difficulty voiding, dysuria, urinary frequency or urinary urgency Musc: Reports: joint pain; Denies: neck pain Skin/Breast: Denies: rash Neuro: Denies: headache(s) or confusion PFS ED PFSH: Medical History Alcohol abuse Bipolar disorder with psychotic features Methamphetamine abuse Psychiatric care Surgical History Gastric bypass status for obesity Social History Smoking and tobacco status: current every day smoker Alcohol intake: former Year of sobriety/quit date alcohol: 08/09 Physical Exam Const: GENERAL APPEARANCE: cooperative and comfortable O RIENTATION/CONSCIOUSNESS: Yes awake, Yes oriented to person, Yes oriented to place and Yes oriented to time HENMT: COMMON NORMALS: normocephalic, atraumatic and hearing grossly normal bilaterally HEAD & SCALP: normocephalic and atraumatic Resp: COMMON NORMALS: normal respiratory effort, No retractions, No use of accessory muscles and clear to auscultation bilaterally AUSCULTATION: clear to auscultation bilaterally Cardio: COMMON NORMALS: regular rate, regular rhythm and No murmurs present (Cardio) RATE: regular rate RHYTHM: regular rhythm GI: COMMON NORMALS: Soft to palpation and No hepatosplenomegaly present AUSCULTATION: Yes normoactive bowel sounds PALPATION: Yes Soft to palpation, No Tenderness to palpation present (GI), No Guarding due to palpation present (GI) and Yes No hepatosplenomegaly present Extremity: COMMON NORMALS: normal to inspection, capillary refill normal, no clubbing, cyanosis or edema, no calf tenderness and no pedal edema Neuro: SENSORIUM/ORIENTATION: Yes oriented to person, Yes oriented to place and Yes oriented to time Skin: COMMON NORMALS: no rashes or lesions noted GENERAL SKIN EXAM: no rashes or lesions noted Course Vital Signs: Vital signs: Vital Signs Temperature 98.1 F 11/29/21 06:06 Pulse Rate 98 11/29/21 07:31 Respiratory Rate 18 11/29/21 07:31 Blood Pressure 125/80 11/29/21 07:31 Pulse Oximetry 98 11/29/21 07:31 Oxygen Delivery Ar thod 11/29/21 07:31 MDM - General Adult Medical Decision Making Patient referring to lumps in her scanner largely bony prominences particularly spinous process the palmar surface of the MP joints on the hands. She does have some calcifications in the skin particularly in the left lower legappear to be chronic, non fluctuant. Pt is tachycardic. with her current presenting behavior she appears to be under influence of methamphetamines. Medical Records I reviewed the patient's medical records. Lab Data I reviewed the patient's lab results. Discharge Plan Discharge Patient Disposition: Home Clinical Impression: Arthralgia, Methamphetamine abuse, Alcohol use disorder, severe, dependence, Psychotic disorder Condition: Stable Prescriptions: New diclofenac sodium 75 mg tablet,delayed release (DR/EC) 75 mg PO Q12H PRN (Reason: pain) Qty: 20 0RF No Action omeprazole 20 mg Capsule,Delayed Release(Dr/Ec) 20 mg PO BID trazodone 50 mg tablet 50 mg PO BEDTIME 30 Days Qty: 30 1RF gabapentin 300 mg Capsule 300 mg PO TID 30 Days Qty: 90 1RF Zyprexa 5 mg tablet 5 mg PO DAILY 30 Days Qty: 30 1RF Discharge Orders: Discharge ED (Routine); Ordered 11/29/21 Ordered By: Shon Napier Referrals: Jaylen Salomon MD [Primary Care Provider] - Discharge Diet: Usual diet Discharge Activity: Resume usual activity Patient Instructions: Opioid Safety, Pain Management Activity Restrictions/Additional Instructions: Follow-up with your primary care doctor as needed. Coding Level of Care Code ED Clerical Aide Teacher for [facility] Fwd Exam Detailed
--- NOTE | 2021-11-29 07:25 | PC.NURSE ---
Report from LOR[facility]
[2021-11-29 07:31] VITALS: BP 125/80; PULSE 98; RESP 18; O2SAT 98
== END 2021-11-29 07:46 | disposition home or self-care (01) ==
PROVIDERS: Emergency Provider Family Medicine; PCP Family Medicine
DX: M25.50 Pain in unspecified joint (principal); F15.10 Other stimulant abuse, uncomplicated; F10.20 Alcohol dependence, uncomplicated; F29 Unspecified psychosis not due to a substance or known physiological condition; F17.210 Nicotine dependence, cigarettes, uncomplicated
CPT/HCPCS: 99283

== ENCOUNTER 2022-02-28 08:50 | Outpatient (CLI) | payer MEDICARE, MEDICAID, SELFPAY ==
--- NOTE | 2022-02-28 09:28 | XR_ITS ---
WS: [id number] XR cervical spine fl/ex [id number] REASON FOR EXAM: CERVICALGIA FINDINGS: Straightening of the normal lordosis on the lateral view of the cervical spine. The odontoid is normal. No focal cervical vertebral body abnormality. Mild narrowing of the C6-C7 disc space with moderate anterior and uncinate osteophytosis. Mild narrowing of the C7-T1 disc space. In the neutral position there is 2 mm of anterolisthesis of C3 in relation to C4. In the neutral position there is 1 to 1.5 mm of anterolisthesis of C4 in relation to C5 and C5 and re lation to C6. In flexion the anterolisthesis at C3-C4 increases to 3 mm. The anterolisthesis at C4-C5 and C5-C6 do not change significantly with flexion. With extension the listheses described above are essentially reduced. XR/XR cervical spine fl/ex [id number] IMPRESSION: Degenerative spondylosis of the cervical spine as described above.
== END 2022-02-28 08:51 | disposition home or self-care (01) ==
PROVIDERS: PCP Family Medicine; Visit Provider Nurse Practitioner
DX: M47.812 Spondylosis without myelopathy or radiculopathy, cervical region
CPT/HCPCS: 72040

== ENCOUNTER 2022-03-13 13:05 | Outpatient (CLI) | payer MEDICARE, MEDICAID, SELFPAY ==
--- NOTE | 2022-03-13 13:20 | MR_ITS ---
WS: [id number] MRI CERVICAL SPINE NONCONTRAST HISTORY: CERVICALGIA COMPARISON: None available. Technique: Multiplanar, multisequence noncontrast imaging of the cervical spine. Quality of this examination is suboptimal due to patient's clinical condition and motion. Normal cervical alignment. There are small amount of marrow edema along the endplates of C6, C7 and T 3. No fractures. Signal within the cervical cord is normal. Visualized posterior fossa is unremarkable. Craniocervical junction, C1 and C2 relationship, odontoid process and soft tissues are normal. C2-C3: Normal. C3-C4: Small central disc protrusion. LEFT facet arthritis and LEFT foraminal narrowing. C4-C5: Mild bilateral facet joint arthritis. C5-C6: There is mild osteophytic ridging. Mild facet arthritis. C6-C7: Diffuse annular disc bulging and mild osteophytic ridging. Mild facet arthritis. Mild central and bilateral foraminal stenosis. C7-T1: Normal. Paraspinal soft tissue are normal. MR/MR cervical spin wo con* [id number] IMPRESSION: 1. Quality of this examination is limited by motion artifact. 2. Mild LEFT foraminal stenosis at L3-4. 3. Mild central and bilateral foraminal stenosis at C6-7 due to disc and osteo phyte disease.
== END 2022-03-13 13:06 | disposition home or self-care (01) ==
LOC: RAD 13:08
PROVIDERS: PCP Family Medicine; Visit Provider Nurse Practitioner
DX: M48.02 Spinal stenosis, cervical region (principal)
CPT/HCPCS: 72141

== ENCOUNTER 2022-04-05 00:50 | Emergency (ER) | payer MEDICARE, MEDICAID, SELFPAY ==
[2022-04-05 00:50] VITALS: BP 121/82; PULSE 104; RESP 18; TEMP 36.4; O2SAT 96; BMI 19.9
--- NOTE | 2022-04-05 00:57 | XRR_ITS ---
PROCEDURE INFORMATION: Exam: XR Pelvis Exam date and time: 04/05/2022 1:14 AM Age: 51 years old Clinical indication: Injury or trauma; Fall; Blunt trauma (contusions or hematomas); Bilateral; Pelvic region; Patient HX: ETOH on board. PT admits to drinking 12 pack of beer before arrival. Talking mostly nonsense and non-compliant. Best films obtained. TECHNIQUE: Imaging protocol: Radiologic exam of the pelvis. Views: 1 or 2 view. COMPARISON: No relevant prior studies available. FINDINGS: Bones/joints: Unremarkable. No acute fracture. Soft tissues: Unremarkable. XR/XR pelvis 1-2V* [id number] IMPRESSION: No acute findings.
--- NOTE | 2022-04-05 00:57 | XRR_ITS ---
PROCEDURE INFORMATION: Exam: XR Chest Exam date and time: 04/05/2022 1:14 AM Age: 51 years old Clinical indication: Injury or trauma; Blunt trauma (contusions or hematomas); Patient HX: Arrival via EMS for fall. C/O chest and pelvic pain. TECHNIQUE: Imaging protocol: Radiologic exam of the chest. Views: 1 view. COMPARISON: CR XR ribs RT mn 3V w CXR1V [id number] 08/07/2021 2:42 AM FINDINGS: Tubes, catheters and devices: Multiple surgical clips in the region of the GE junction are re-identified. Lungs: No consolidation. Pleural spaces: No pleural effusion. No pneumothorax. Heart/Mediastinum: No cardiomegaly. Bones/joints: No acute fracture. XR/XR chest 1V portable [id number] IMPRESSION: No acute cardiopulmonary findings.
--- NOTE | 2022-04-05 01:00 | PC.NURSE ---
Pt yelling at staff in hallway. Left room stating that no one is doing anything for her except making her roll around. Prior to this, pt yelling and cussing at [employer], CLUB LOUNGE ATTENDANT, Nursing. Pt offered pain medication and refused stating that it causes her chest to hurt( Hydrocodone) Provider made aware of this. Unknown amount of ETOH in system.
--- NOTE | 2022-04-05 01:00 | W.ED.FALL ---
HPI - Fall General: Chief Complaint: Fall Stated Complaint: FALL Time Seen by Provider: 04/05/22 00:52 Source: patient and EMS Mode of arrival: EMS Limitations: no limitations History of Present Illness: 51-year-old female with a history of alcoholism she states she was drinking tonight and fell over into a small trash can in her bedroom. States she did hit her right posterior rib cage has pain over right lower posterior ribs states she has much more pain when she tries to ambulate she denies hitting her head denies any neck pain denies any lower extremity pain. Associated symptoms-after fall: Reports chest pain; Denies abdominal pain or headache(s) Review of Systems Const: Denies: fever(s), chills, body aches or change in appetite Eyes: Denies: blurry vision or eye discomfort ENMT: Denies: throat pain or dental pain Card: Reports: chest pain Resp: Denies: dyspnea GI: Denies: abdominal pain, nausea, vomiting or diarrhea : Denies: dysuria Musc: Reports: back pain Skin/Breast: Denies: rash Neuro: Denies: headache(s) Psych: Denies: depression Jose/Lymph: Denies: easy bruising All/Imm: Denies: urticaria PFSH ED PFSH: Medical History Alcohol abuse Bipolar disorder with psychotic features Methamphetamine abuse Psychiatric care Surgical History Gastric bypass status for obesity Social History Smoking and tobacco status: current every day smoker Alcohol intake: former Year of sobriety/quit date alcohol: 08/09 Physical Exam Const: COMMON NORMALS: no acute distress, patient oriented x3 and healthy appearing GENERAL APPEARANCE: odor of alcohol detected HENMT: COMMON NORMALS: normocephalic and atraumatic HEAD & SCALP: normocephalic and atraumatic Eye: COMMON NORMALS: Equal, round and reactive pupils present and EOMs intact bilaterally PUPIL: Yes Equal, round and reactive pupils present Neck/C-Spine: COMMON NORMALS: full ROM and supple Chest: COMMONS NORMALS: normal inspection of the chest and normal palpation of entire chest wall OTHER: tenderness over right posterior chest lower ribs Resp: COMMON NORMALS: normal respiratory effort, No retractions, No use of accessory muscles and clear to auscultation bilaterally AUSCULTATION: clear to auscultation bilaterally Cardio: COMMON NORMALS: regular rate, regular rhythm and No murmurs present (Cardio) RATE: regular rate RHYTHM: regular rhythm GI: COMMON NORMALS: Normal to inspection, nondistended, normoactive bowel sounds present, Soft to palpation, non-tender and no masses PALPATION: Yes Soft to palpation : COMMON NORMALS: Yes no CVA tenderness BLADDER/KIDNEY EXAM: Yes no CVA tenderness Back/Pelvis: COMMON NORMALS: no CVA tenderness THORACIC SPINE/UPPER BACK: Yes normal to inspection, No thoracic spinal tenderness and No paraspinal muscle tenderness LUMBAR SPINE/LOWER BACK: Yes normal to inspection, No lumbar spinal tenderness and No paraspinal muscle tenderness Extremity: COMMON NORMALS: normal to inspection and full ROM Neuro: COMMON NORMALS: patient oriented x3, moves all extremities and no focal motor deficits Psych: COMMON NORMALS: mental status grossly normal, Normal thought process present and cooperative THOUGHT PROCESS: Normal thought process present Skin: COMMON NORMALS: no rashes or lesions noted and no wounds GENERAL SKIN EXAM: no rashes or lesions noted Course Vital Signs: Vital signs: Vital Signs Temperature 97.6 F 04/05/22 00:50 Pulse Rate 104 H 04/05/22 00:50 Respiratory Rate 18 04/05/22 00:50 Blood Pressure 121/82 04/05/22 00:50 Pulse Oximetry 96 04/05/22 00:50 Oxygen Delivery Me thod 04/05/22 00:50 MDM - Fall Medical Decision Making Patient presents here after a fall with a contusion to left posterior ribs x-rays here are negative patient refused any other testing and signed out AGAINST MEDICAL ADVICE she has medical decision made capacity she is able answer my questions appropriately and understands the risk of signing out against AMA. Lab Data Laboratory Results Urine Color Colorless (Yellow) 04/05/22 01:08 Urine Appearance Clear (CLEAR) 04/05/22 01:08 Urine pH 5 (5-7) 04/05/22 01:08 Ur Specific [place] 1.010 (1.005-1.030) 04/05/22 01:08 Urine Protein Neg (Negative) 04/05/22 01:08 Urine Glucose (UA) Norm (Normal) 04/05/22 01:08 Urine Ketones Negative (Negative) 04/05/22 01:08 Urine Blood Neg (Negative) 04/05/22 01:08 Urine Nitrate Negative (Negative) 04/05/22 01:08 Urine Bilirubin Neg (Negative) 04/05/22 01:08 Urine Urobilinogen Norm mg/dL (Negative) 04/05/22 01:08 Ur Leukocyte Esterase Negative (Negative) 04/05/22 01:08 Discharge Plan Discharge Patient Disposition: Left Against Medical Advice Clinical Impression: Alcohol use disorder, severe, dependence, Fall, Contusion Condition: Stable Prescriptions: No Action diclofenac sodium 75 mg tablet,delayed release (DR/EC) 75 mg PO Q12H PRN (Reason: pain) Qty: 20 0RF omeprazole 20 mg Capsule,Delayed Release(Dr/Ec) 20 mg PO BID trazodone 50 mg tablet 50 mg PO BEDTIME 30 Days Qty: 30 1RF gabapentin 300 mg Capsule 300 mg PO TID 30 Days Qty: 90 1RF Zyprexa 5 mg tablet 5 mg PO DAILY 30 Days Qty: 30 1RF Referrals: Jaylen Salomon MD [Primary Care Provider] - Coding Level of Care Code ED System Operation Superintendent for Le[facility]ng [place]
[2022-04-05 01:12] LABS: Add Urine Microscopic? NO; Charge for UA Resulting for Rev
[2022-04-05 01:14] LABS: Bilirubin Urine Neg (Negative); Blood Urine Neg (Negative); Glucose Urine UA Norm (Normal); Ketones Urine Negative (Negative); Leukocyte Esterase Urine Negative (Negative); Nitrate Urine Negative (Negative); Protein Urine Neg (Negative); Urine Appearance Clear (CLEAR); Urine Color Colorless (Yellow); Urobilinogen Urine Norm (Negative); pH Urine 5 (5-7)
--- NOTE | 2022-04-05 01:56 | PC.NURSE ---
Pt becoming increasingly loud and disruptive. Pt requesting to leave AMA. Risks of leaving AMA discussed with pt, pt resisting education. Paper signed. Syed called.
== END 2022-04-05 02:10 | disposition left against medical advice (07) ==
PROVIDERS: Emergency Provider Emergency Medicine; PCP Family Medicine
DX: S20.212A Contusion of left front wall of thorax, initial encounter (principal); W19.XXXA Unspecified fall, initial encounter; Y92.003 Bedroom of unspecified non-institutional (private) residence as the place of occurrence of the external cause; F10.20 Alcohol dependence, uncomplicated; Z53.29 Procedure and treatment not carried out because of patient's decision for other reasons
CPT/HCPCS: 71045; 72170; 81003; 99283

== ENCOUNTER 2022-04-08 16:14 | Emergency (ER) | payer MEDICARE, MEDICAID, SELFPAY ==
[2022-04-08 16:17] VITALS: BP 119/77; PULSE 108; RESP 20; TEMP 36.4; O2SAT 95; BMI 19.9
--- NOTE | 2022-04-08 16:39 | CTR_ITS ---
PROCEDURE INFORMATION: Exam: CT Abdomen And Pelvis Without Contrast Exam date and time: 04/08/2022 5:09 PM Age: 51 years old Clinical indication: Other: Back pain after fall; Additional info: Fall, eval retroperitoneal injury, L back/ flank bruising TECHNIQUE: Imaging protocol: Computed tomography of the abdomen and pelvis without contrast. Radiation optimization: All CT scans at this facility use at least one of these dose optimization techniques: automated exposure control; mA and/or kV adjustment per patient size (includes targeted exams where dose is matched to clinical indication); or iterative reconstruction. Other protocol: This patient has received 0 known CTs and 0 known cardiac nuclear medicine studies in the 12 months prior to the current study. COMPARISON: CR (PELVIS, ) 04/05/2022 1:14 AM RADIATION DOSE METRICS: Total DLP (mGy-cm): 410.83 FINDINGS: Lungs: Visualized lungs are clear. Pleural spaces: No pleural effusion. Heart: Visualized heart is normal in size. Coronary arteries: Mild atherosclerotic calcification in the visualized coronary arteries. Liver: Diffuse, moderately decreased density in the liver. Findings are consistent with moderate fatty infiltration. Gallbladder and bile ducts: Patient has had a previous cholecystectomy. Dilatation of the biliary ducts, not unexpected in a patient who has had a prior cholecystectomy. Pancreas: The pancreas is unremarkable. No pancreatic ductal dilatation. Spleen: The spleen is unremarkable. Adrenal glands: The right and left adrenal glands are unremarkable. Kidneys and ureters: The right and left kidneys are unremarkable. The right and left ureters are unremarkable. Stomach and bowel: Postsurgical changes consistent with previous Barbara-en-Y gastric bypass. Fluid within the small bowel without evidence of bowel wall thickening. No acute abnormality in the colon. Appendix: The appendix is visualized and is unremarkable. No findings to suggest acute appendicitis. Intraperitoneal space: No free intraperitoneal air. No ascites. No loculated fluid collections to suggest an abscess. Vasculature: Mild atherosclerotic changes in the visualized arteries. No evidence for aortic aneurysm. Lymph nodes: No lymphadenopathy. Urinary bladder: The bladder is unremarkable. Reproductive: The uterus, right ovary, and left ovary are unremarkable. Bones/joints: Degenerative changes in the spine and hips. Mild spinal canal stenosis at L2-L3 through L5-S1. Multilevel foraminal stenosis of varying severity in the visualized spine. Soft tissues: No acute abnormality in the extra-abdominal soft tissues. CT/CT abdomen pelvis wo con [id number] IMPRESSION: 1. Fluid within the small bowel without evidence of bowel wall thickening. This may reflect viral gastroenteritis in the appropriate clinical situation. 2. Moderate fatty infiltration of the liver. 3. Incidental/nonacute findings are listed in the report.
--- NOTE | 2022-04-08 17:04 | PC.NURSE ---
Pt has ETOH, everytime i would stick her for a IV she would pull her arm back and scream causing me to lose the IV. Dr notified of unable to get IV
[2022-04-08 17:48] LABS: Basophils # 0.1 10^3/uL (0.0-0.1); Basophils % 2.1 %; Eosinophils # 0.1 10^3/uL (0.0-0.8); Hematocrit 43.5 % (37.0-47.0); Hemoglobin 14.7 g/dL (11.5-15.3); Lymphocytes # 2.7 10^3/uL (0.8-4.8); Lymphocytes % 51.5 %; Mean Corpuscular HGB Conc 33.8 g/dL (30.0-36.0); Mean Corpuscular Hemoglobin 33.3 pg (28.0-34.0); Mean Corpuscular Volume 98.6 fl (81-99); Mean Platelet Volume 9.8 fL (7.4-10.4); Monocytes # 0.6 10^3/uL (0.2-0.9); Neutrophils # 1.77 10^3/uL (1.8-7.7); Nucleated Red Blood Cells % 0 %; Platelet Count 143 10^3/cmm (130-400); Red Blood Count 4.41 10^6/uL (4.1-5.3); Red Cell Distribution Width 11.9 % (12.1-15.1); White Blood Count 5.2 10^3/uL (4.0-10.0)
[2022-04-08 18:02] LABS: Alanine Aminotransferase 173 U/L (0-33); Albumin Level 4.6 g/dL (3.5-5.2); Alkaline Phosphatase 169 U/L (35-105); Anion Gap 17.8 (5-19); Aspartate Amino Transferase 391 U/L (0-32); Blood Urea Nitrogen 5 mg/dL (6-20); Calcium 9.1 mg/dL (8.5-10.5); Carbon Dioxide 25 mmol/L (22-29); Chloride 99 mmol/L (98-107); Globulin 3.1 g/dL (1.3-4.6); Glomerular Filtration Rate 169.7 mL/min (90-130); Glucose 98 mg/dL (65-115); Osmolality Calculated 283 mOsm/kg (285-295); Potassium 3.8 mmol/L (3.5-5.1); Sodium 138 mmol/L (136-145); Total Bilirubin 0.4 mg/dL (0.15-1.2); Total Protein 7.7 g/dL (6.6-8.7)
[2022-04-08 18:04] LABS: Alcohol Level 352 mg/dL (0-10)
[2022-04-08 18:05] LABS: Add Urine Microscopic? NO; Charge for UA Resulting for Rev
[2022-04-08 18:14] LABS: Specific Gravity, Urine 1.005 (1.005-1.030); Urine Appearance Clear (CLEAR); Urine Color Light yellow (Yellow); pH Urine 5 (5-7)
[2022-04-08 18:15] LABS: Bilirubin Urine Neg (Negative); Blood Urine Neg (Negative); Glucose Urine UA Norm (Normal); Ketones Urine Negative (Negative); Leukocyte Esterase Urine Negative (Negative); Nitrate Urine Negative (Negative); Protein Urine Neg (Negative); Urobilinogen Urine Norm (Negative)
--- NOTE | 2022-04-08 18:32 | ED_ITS ---
HPI - Back Pain/Injury General: Chief Complaint: Back Pain/Injury Stated Complaint: fall/ back pian Time Seen by Provider: 04/08/22 16:31 History of Present Illness: Four 11-year-old female well-known to this emergency department presenting emergency department with left-sided back pain. States she fell into a garbage can yesterday and has had pain in that area since then. Denies loss consciousness, other injuries at this time. States she has been drinking today more than usual because of the pain. Pain described as aching, nonradiating, not associated with UTI symptoms, chest symptoms, or fevers. States she has a bruise over that area. States she drinks approximately 15 beers of [place] ice nightly. Associated symptoms: Deny abdominal pain, chills, fever(s) or nausea Review of Systems General: Reports: 10 or more systems reviewed and unremarkable except in HPI and below Const: Denies: fever(s), chills or body aches Eyes: Denies: change in vision or blurry vision ENMT: Denies: throat pain or uvular edema Card: Denies: chest pain or palpitations Resp: Denies: dyspnea or productive cough GI: Denies: abdominal pain or nausea : Denies: flank pain or difficulty voiding Musc: Denies: neck pain or back pain Skin/Breast: Denies: rash or pruritus Neuro: Denies: headache(s) or numbness in extremities PFS ED PFSH: Medical History Alcohol abuse Bipolar disorder with psychotic features Methamphetamine abuse Psychiatric care Surgical History Gastric bypass status for obesity Social History Smoking and tobacco status: current every day smoker Alcohol intake: former Year of sobriety/quit date alcohol: 08/09 Physical Exam Const: COMMON NORMALS: no acute distress and no limitations EXAM LIMITATIONS: altered mental status OTHER: Appears grossly intoxicated, smells of alcohol and cigarettes. HENMT: COMMON NORMALS: normocephalic, atraumatic and Normal external nose present HEAD & SCALP: normocephalic and atraumatic NOSE: Normal external nose present GENERAL EAR: hearing grossly impaired MOUTH: Normal oral and palatal mucosa present THROAT: no uvular edema Eye: COMMON NORMALS: Equal, round and reactive pupils present and EOMs intact bilaterally PUPIL: Yes Equal, round and reactive pupils present Neck/C-Spine: COMMON NORMALS: full ROM and no lymphadenopathy Lymph: LYMPHATIC: no lymphadenopathy noted and no lymphedema noted Chest: COMMONS NORMALS: normal inspection of the chest and normal palpation of entire chest wall Resp: COMMON NORMALS: normal respiratory effort and No retractions Cardio: COMMON NORMALS: regular rhythm RATE: tachycardic RHYTHM: regular rhythm GI: COMMON NORMALS: Normal to inspection, nondistended, normoactive bowel sounds present, Soft to palpation and non-tender PALPATION: Yes Soft to palpation : COMMON NORMALS: Yes no CVA tenderness and Yes normal external appearance BLADDER/KIDNEY EXAM: Yes no CVA tenderness Back/Pelvis: COMMON NORMALS: no CVA tenderness OTHER: Patient has a 3 cm x 3 cm bruise over her left flank on the posterior aspect lateral to the spine, no bony tenderness of the spine. No other bruising on the abdomen, buttocks, or Course Vital Signs: Vital signs: Vital Signs Temperature 97.6 F 04/08/22 16:17 Pulse Rate 108 H 04/08/22 16:17 Respiratory Rate 20 H 04/08/22 16:17 Blood Pressure 119/77 04/08/22 16:17 Pulse Oximetry 95 04/08/22 16:17 Oxygen Delivery Me thod 04/08/22 16:17 MDM - Back Pain/Injury Medical Decision Making 51-year-old female intoxicated presenting with left flank pain and a bruise in that area. Vital signs mildly tachycardic. Labs not demonstrating actionable abnormality. Imaging without acute traumatic findings. Plan to observe this patient for improvement of her tachycardia with oral hydration, and improvement of her mental status with metabolization of for ethanol. While awaiting completion of this observation period, states that she needs to leave now. She is subsequently discovered smoking in the room. Patient was brought to be observed in the waiting room and decided to leave AGAINST MEDICAL ADVICE. She stated that she would like to drive home, however, we observed her until a ride picked her up from the waiting room so she would not be driving intoxicated. This patient appears to be suffering from acute alcohol intoxication without other complication at this time. Ride that comes to pick her up will be informed of findings and return precautions. Labs 04/08/22 17:38 04/08/22 17:38 Radiology Impressions Abdomen/Pelvis CT 04/08/22 16:39 IMPRESSION: 1. Fluid within the small bowel without evidence of bowel wall thickening. This may reflect viral gastroenteritis in the appropriate clinical situation. 2. Moderate fatty infiltration of the liver. 3. Incidental/nonacute findings are listed in the report. Laboratory Results WBC 5.2 10^3/uL (4.0-10.0) 04/08/22 17:38 RBC 4.41 10^6/uL (4.1-5.3) 04/08/22 17:38 Hgb 14.7 g/dL (11.5-15.3) 04/08/22 17:38 Hct 43.5 % (37.0-47.0) 04/08/22 17:38 MCV 98.6 fl (81-99) 04/08/22 17:38 MCH 33.3 pg (28.0-34.0) 04/08/22 17:38 MCHC 33.8 g/dL (30.0-36.0) 04/08/22 17:38 RDW 11.9 % (12.1-15.1) L 04/08/22 17:38 Plt Count 143 10^3/cmm (130-400) 04/08/22 17:38 MPV 9.8 fL (7.4-10.4) 04/08/22 17:38 Neut % (Auto) 34.0 % 04/08/22 17:38 Lymph % (Auto) 51.5 % 04/08/22 17:38 [place] % (Auto) 11.0 % 04/08/22 17:38 Eos % (Auto) 1.0 % 04/08/22 17:38 Baso % (Auto) 2.1 % 04/08/22 17:38 Neut # (Auto) 1.77 10^3/uL (1.8-7.7) L 04/08/22 17:38 Lymph # (Auto) 2.7 10^3/uL (0.8-4.8) 04/08/22 17:38 [place] # (Auto) 0.6 10^3/uL (0.2-0.9) 04/08/22 17:38 Eos # (Auto) 0.1 10^3/uL (0.0-0.8) 04/08/22 17:38 Baso # (Auto) 0.1 10^3/uL (0.0-0.1) 04/08/22 17:38 Nucleated RBC % (auto) 0 % 04/08/22 17:38 Nucleated RBCs # 0.0 /100WBC 04/08/22 17:38 Sodium 138 mmol/L (136-145) 04/08/22 17:38 Potassium 3.8 mmol/L (3.5-5.1) 04/08/22 17:38 Chloride 99 mmol/L (98-107) 04/08/22 17:38 Carbon Dioxide 25 mmol/L (22-29) 04/08/22 17:38 Anion Gap 17.8 (5-19) 04/08/22 17:38 BUN 5 mg/dL (6-20) L 04/08/22 17:38 Creatinine 0.4 mg/dL (0.5-0.9) L 04/08/22 17:38 GFR Calculation 169.7 mL/min (90-130) H 04/08/22 17:38 Glucose 98 mg/dL (65-115) 04/08/22 17:38 Calculated Osmolality 283 mOsm/kg (285-295) L 04/08/22 17:38 Lactate 1.0 mmol/L (0.5-2.2) 04/08/22 17:38 Calcium 9.1 mg/dL (8.5-10.5) 04/08/22 17:38 Total Bilirubin 0.4 mg/dL (0.15-1.2) 04/08/22 17:38 AST 391 U/L (0-32) H 04/08/22 17:38 ALT 173 U/L (0-33) H 04/08/22 17:38 Alkaline Phosphatase 169 U/L (35-105) H 04/08/22 17:38 Total Protein 7.7 g/dL (6.6-8.7) 04/08/22 17:38 Albumin 4.6 g/dL (3.5-5.2) 04/08/22 17:38 Globulin 3.1 g/dL (1.3-4.6) 04/08/22 17:38 Urine Color Light yellow (Yellow) 04/08/22 17:50 Urine Appearance Clear (CLEAR) 04/08/22 17:50 Urine pH 5 (5-7) 04/08/22 17:50 Ur Specific [place] 1.005 (1.005-1.030) 04/08/22 17:50 Urine Protein Neg (Negative) 04/08/22 17:50 Urine Glucose (UA) Norm (Normal) 04/08/22 17:50 Urine Ketones Negative (Negative) 04/08/22 17:50 Urine Blood Neg (Negative) 04/08/22 17:50 Urine Nitrate Negative (Negative) 04/08/22 17:50 Urine Bilirubin Neg (Negative) 04/08/22 17:50 Urine Urobilinogen Norm mg/dL (Negative) 04/08/22 17:50 Ur Leukocyte Esterase Negative (Negative) 04/08/22 17:50 Ethyl Alcohol 352 mg/dL (0-10) H* 04/08/22 17:38 Discharge Plan Discharge Patient Disposition: Home Clinical Impression: Alcohol use disorder, severe, dependence Condition: Stable Prescriptions: No Action diclofenac sodium 75 mg tablet,delayed release (DR/EC) 75 mg PO Q12H PRN (Reason: pain) Qty: 20 0RF omeprazole 20 mg Capsule,Delayed Release(Dr/Ec) 20 mg PO BID trazodone 50 mg tablet 50 mg PO BEDTIME 30 Days Qty: 30 1RF gabapentin 300 mg Capsule 300 mg PO TID 30 Days Qty: 90 1RF Zyprexa 5 mg tablet 5 mg PO DAILY 30 Days Qty: 30 1RF Discharge Orders: Discharge ED (Routine); Ordered 04/08/22 Ordered By: Laila Potter Referrals: Jaylen Salomon MD [Primary Care Provider] - 1-3 days Discharge Diet: Advance as tolerated Discharge Activity: Resume usual activity Patient Instructions: Alcohol Intoxication (ED) Coding Level of Care Code ED Shipbuilding Draftsperson for Elke Ortiz
[2022-04-08 18:39] VITALS: BP 119/77; RESP 20; O2SAT 95
[2022-04-08 19:03] LABS: Amphetamines Screen Urine Negative (Negative); Barbiturates Screen Urine Negative (Negative); Benzodiazepines Screen Urine Negative (Negative); Cocaine Screen Urine Negative (Negative); Opiate Screen Urine Negative (Negative); PCP Screen Urine Negative (Negative); THC Screen Urine Negative (Negative)
== END 2022-04-08 18:40 | disposition home or self-care (01) ==
PROVIDERS: Emergency Provider General Practice; PCP Family Medicine
DX: S30.1XXA Contusion of abdominal wall, initial encounter (principal); W19.XXXA Unspecified fall, initial encounter; R00.0 Tachycardia, unspecified; F10.220 Alcohol dependence with intoxication, uncomplicated; Y90.8 Blood alcohol level of 240 mg/100 ml or more; Z53.29 Procedure and treatment not carried out because of patient's decision for other reasons
CPT/HCPCS: 36415; 74176; 80053; 80306; 80307; 81003; 83605; 85025; 99284

== ENCOUNTER 2022-05-02 05:39 | Day surgery (SDC) | payer MEDICARE, MEDICAID, SELFPAY ==
[2022-04-30 13:19] VITALS: BMI 19.9
[2022-04-30 13:43] LABS: Basophils # 0.1 10^3/uL (0.0-0.1); Basophils % 1.4 %; Eosinophils % 0.7 %; Hemoglobin 13.2 g/dL (11.5-15.3); Lymphocytes # 1.2 10^3/uL (0.8-4.8); Lymphocytes % 21.8 %; Mean Corpuscular Hemoglobin 33.5 pg (28.0-34.0); Mean Corpuscular Volume 101.5 fl (81-99); Mean Platelet Volume 10.6 fL (7.4-10.4); Monocytes # 0.5 10^3/uL (0.2-0.9); Monocytes % 8.3 %; Neutrophils # 3.85 10^3/uL (1.8-7.7); Neutrophils % 67.6 %; Nucleated Red Blood Cells % 0 %; Platelet Count 132 10^3/cmm (130-400); Red Blood Count 3.94 10^6/uL (4.1-5.3); Red Cell Distribution Width 12.2 % (12.1-15.1); White Blood Count 5.7 10^3/uL (4.0-10.0)
[2022-04-30 13:59] LABS: Alanine Aminotransferase 194 U/L (0-33); Albumin Level 4.6 g/dL (3.5-5.2); Alkaline Phosphatase 152 U/L (35-105); Anion Gap 15.4 (5-19); Aspartate Amino Transferase 231 U/L (0-32); Blood Urea Nitrogen 7 mg/dL (6-20); Calcium 9.4 mg/dL (8.5-10.5); Carbon Dioxide 26 mmol/L (22-29); Chloride 103 mmol/L (98-107); Glomerular Filtration Rate 131.1 mL/min (90-130); Glucose 117 mg/dL (65-115); Osmolality Calculated 291 mOsm/kg (285-295); Potassium 3.4 mmol/L (3.5-5.1); Sodium 141 mmol/L (136-145); Total Bilirubin 0.8 mg/dL (0.15-1.2); Total Protein 7.6 g/dL (6.6-8.7)
[2022-04-30 14:09] LABS: Add Urine Microscopic? YES; Bilirubin Urine 1+ (Negative); Blood Urine Neg (Negative); Glucose Urine UA Norm (Normal); Ketones Urine Negative (Negative); Leukocyte Esterase Urine 2+ (Negative); Nitrate Urine Negative (Negative); Protein Urine Neg (Negative); Urine Appearance Hazy (CLEAR); Urine Color Amber (Yellow); Urobilinogen Urine 4 mg/dL (Negative); pH Urine 5 (5-7)
[2022-04-30 14:10] LABS: Amorphous Sediment Urine 2+ /hpf; Bacteria Urine TRACE /hpf; Mucus Urine 1+ /hpf; Squamous Epithelial Cell Urine 0-4 /hpf (0-5); WBC Urine 0-4 /hpf (0-5)
[2022-04-30 14:11] LABS: Add Urine Culture? No
--- NOTE | 2022-04-30 17:15 | P.ANESASSM_ITS ---
Pre-Anesthetic Assessment Height/Weight: Height 1.75 m Weight 61.235 kg Operation Date: 05/02/22 07:00 Proposed Procedures p Cervical cone biopsy D06.9(Not Applicable) - James Grant MD Familial anesthetic complications: none Was Beta Angy taken within 24 hours: N/A Was Clonidine taken within 24 hours: N/A Social Tobacco and No alcohol h/o meth use Exam alert, oriented x 3 and regular rate & rhythm Airway Submandibular: within normal limits Cervical ROM: within normal limits Mallampati: Class II Dentition: chipped Pulmonary Chronic Obstructive Pulmonary Disease Hepatic Hepatitis (C) GI Gastroesophageal Reflux Disease [facility] Fibromyalgia Neuropsych psychosis Anesthetic Plan ASA status: 3 Anesthesia: General Medications/Allergies Home Medications Medication Instructions Recorded Confirmed Last Taken Type omeprazole 20 mg capsule,delayed 20 mg PO BID 08/08/21 04/30/22 04/30/22 History release gabapentin 300 mg capsule 300 mg PO TID 30 days #90 caps 08/11/21 04/30/22 04/30/22 Rx olanzapine 5 mg tablet (Zyprexa) 5 mg PO DAILY 30 days #30 tabs 08/11/21 04/30/22 04/30/22 Rx trazodone 50 mg tablet 50 mg PO BEDTIME 30 days #30 tabs 08/11/21 04/30/22 04/30/22 Rx cyclobenzaprine 10 mg tablet 10 mg PO DAILY 04/30/22 04/30/22 04/30/22 History Allergies Allergy/AdvReac Type Severity Reaction Status Date / Time Penicillins Allergy ALGY-Hives Verified 04/30/22 13:17 [facility] Anesthesia Medical History Alcohol abuse Bipolar disorder with psychotic features Methamphetamine abuse Psychiatric care Surgical History Gastric bypass status for obesity Social History Smoking and tobacco status: current every day smoker Alcohol intake: former Year of sobriety/quit date alcohol: 08/09 Data Anesthesia 04/30/22 13:30 04/30/22 13:30 Short CBC 04/30/22 Range/Units 13:30 WBC 5.7 (4.0-10.0) 10^3/uL Hgb 13.2 (11.5-15.3) g/dL Hct 40.0 (37.0-47.0) % MCV 101.5 H (81-99) fl Plt Count 132 (130-400) 10^3/cmm Neut % (Auto) 67.6 % Neut # (Auto) 3.85 (1.8-7.7) 10^3/uL BMP 04/30/22 13:30 Sodium 141 Potassium 3.4 L Chloride 103 Carbon Dioxide 26 BUN 7 Creatinine 0.5 Glucose 117 H Calcium 9.4 Liver Function 04/30/22 Range/Units 13:30 Total Bilirubin 0.8 (0.15-1.2) mg/dL AST 231 H (0-32) U/L ALT 194 H (0-33) U/L Alkaline Phosphatase 152 H (35-105) U/L Albumin 4.6 (3.5-5.2) g/dL Urine 04/30/22 Range/Units Unknown Urine Color [place] (Yellow) Urine Appearance Hazy A (CLEAR) Urine pH 5 (5-7) Ur Specific [place] 1.020 (1.005-1.030) Urine Protein Neg (Negative) Urine Glucose (UA) Norm (Normal) Urine Ketones Negative (Negative) Urine Nitrate Negative (Negative) Urine Bilirubin 1+ H (Negative) Ur Leukocyte Esterase 2+ H (Negative) Urine RBC None (0-2) /hpf Urine WBC 0-4 H (0-5) /hpf Blood Bank 04/30/22 13:30 Blood Type A Negative Rho(D) Type Negative Antibody Screen TNP Cardiac Studies: No Data to Display
[2022-05-02] VITALS (9 sets, daily range): BP systolic 119–140; BP diastolic 66–88; PULSE 81–105; RESP 14–22; TEMP 36.2–36.8; O2SAT 97–100
[2022-05-02] MEDS: sodium chloride 0.9% 1,000 ML 30 ML IV (06:17)
[2022-05-02] MEDS: sodium chloride 0.9% 500 ML IV (06:17)
[2022-05-02] MEDS: scopolamine 1.5 Patch 1 PATCH TRANSDERMA (06:17)
[2022-05-02] MEDS: vancomycin 1,500 MG/300 ML PIGGYBACK 200 MG IV (06:24)
[2022-05-02] MEDS: midazolam 1 mg/mL INJ 2 mL 2 MG IVP (06:24)
--- NOTE | 2022-05-02 06:59 | W.PM.OPSUD ---
Surgery/Procedure H&P Update DATE OF PROCEDURE: May 02, 2022 DATE H&P PERFORMED: 04/30/22 H&P UPDATE INFORMATION: I have reviewed H&P completed within last 30 days, I have examined patient prior to procedure and Changes to prior documentation as noted here PREOP DIAGNOSIS: BABATUNDE-3, severe dysplasia PLANNED PROCEDURE: Operation Date: 05/02/22 07:00 Proposed Procedures p Cervical cone biopsy D06.9(Not Applicable) - James Grnat MD
[2022-05-02] MEDS: levofloxacin-dextrose 5 % 750 MG/150 ML PREMIX 100 MG IV (07:06)
--- NOTE | 2022-05-02 07:11 | P.ANESUD_ITS ---
Pre-Anesthetic Update Pre-Anesthetic Assessment: Date of Surgery/Procedure: 05/02/22 Preop [place] gnosis: BABATUNDE-3, severe dysplasia Proposed Procedure: Operation Date: 05/02/22 07:00 Proposed Procedures p Cervical cone biopsy D06.9(Not Applicable) - James Grant MD Any changes to Pre-Anesthetic Assessment?: No Last Intake: Intake Last Liquid Date 05/01/22 Last Liquid Time 21:00 Last Solid Date 05/01/22 Last Solid Time 21:00 Labs Last 48hrs: Short CBC 04/30/22 Range/Units 13:30 WBC 5.7 (4.0-10.0) 10^3/ uL Hgb 13.2 (11.5-15.3) g/dL Hct 40.0 (37.0-47.0) % MCV 101.5 H (81-99) fl Plt Count 132 (130-400) 10^3/c mm Neut % (Auto) 67.6 % Neut # (Auto) 3.85 (1.8-7.7) 10^3/u L BMP 04/30/22 13:30 Sodium 141 Potassium 3.4 L Chloride 103 Carbon Dioxide 26 BUN 7 Creatinine 0.5 Glucose 117 H Calcium 9.4 Liver Function 04/30/22 Range/Units 13:30 Total Bilirubin 0.8 (0.15-1.2) mg/dL AST 231 H (0-32) U/L ALT 194 H (0-33) U/L Alkaline Phosphata se 152 H (35-105) U/L Albumin 4.6 (3.5-5.2) g/dL Urine 04/30/22 Range/Units Unknown Urine Color [place] (Yellow) Urine Appearance Hazy A (CLEAR) Urine pH 5 (5-7) Ur Specific Gravit y 1.020 (1.005-1.030) Urine Protein Neg (Negative) Urine Glucose (UA) Norm (Normal) Urine Ketones Negative (Negative) Urine Nitrate Negative (Negative) Urine Bilirubin 1+ H (Negative) Ur Leukocyte Mily ase 2+ H (Negative) Urine RBC None (0-2) /hpf Urine WBC 0-4 H (0-5) /hpf Blood Bank 04/30/22 13:30 Blood Type A Negative Rho(D) Type Negative Antibody Screen TNP Vitals: Temperature 97.9 F 05/02/22 05:57 Temperature Source Temporal Artery S can 05/02/22 05:57 Pulse Rate 105 H 05/02/22 05:57 Pulse Rhythm 05/02/22 06:11 Pulse Strength 3+ Normal 05/02/22 06:11 Respiratory Rate 18 05/02/22 05:57 Blood Pressure 125/83 05/02/22 05:57 Blood Pressure Matilde n 97 05/02/22 05:57 Pulse Oximetry 97 05/02/22 05:57 Oxygen Delivery Me thod 05/02/22 06:11 Exam: Pre-Anes Outpt Exam: alert, oriented x 3, clear to auscultation bilaterally and regular rate & rhythm Cardiac Studies: No Data to Display
[2022-05-02] MEDS: lidocaine-epi 2% 20 mL INJ INJECTION (07:33)
--- NOTE | 2022-05-02 07:57 | P.OP_ITS ---
Operative Report Date of procedure: May 02, 2022 Pre-op diagnosis: Preop Diagnosis BABATUNDE-3, severe dysplasia Post-op diagnosis: Same as above Procedure done: Cervical cone biopsy Specimens removed/disposition: Cervix, cone biopsy Surgeon: James Grant MD Estimated blood loss (mL): 1 IV fluids (mL): 600 Procedure: After informed consent, the patient was taken to the operating room where general anesthesia was administered without difficulty. After administration of general anesthesia, the patient was placed in the dorsal lithotomy position, and prepped and draped in the usual sterile fashion. A time-out procedure was performed. The patient was examined under anesthesia and found to have a normal uterus with normal adnexa. A weighted speculum was then placed in the patient's vagina and the anterior lip of the cervix grasped with the singed toothed tenaculum A uterine sound was then advanced into the cervix to determine its direction and length. The decending cervical branchs of the uterine arteries were ligated with 2-0 Vicryl bilaterally at the level of the internal os. Attention was then turned to the cervix where it was stain with Lugol?s solution to hightlight the lesion. The paracervical area was then circumferentially infiltrated using Lidocaine 1% with epinephrine. A [employer] Cone Biopsy Excisor was used to cut the cone biopsy in circular fashion and following removal of the specimen a suture was placed at the 12 o?clock location and fixed in formalin. Bleeding was minimal. The patient tolerated the procedure well, sponge, lap and needle counts were correct times two She was taken to the recovery room in good condition.
--- NOTE | 2022-05-02 08:14 | PC.NURSE ---
No bleeding noted on zaki pad
[2022-05-02] MEDS: acetaminophen 500 mg Tablet PO (08:58)
--- NOTE | 2022-05-02 15:32 | ANE.PACU2 ---
Inpatient post-anesthesia follow up: Airway intact: Yes Vital signs: Temperature 97.2 F Pulse Rate 81 Respiratory Rate 16 Blood Pressure 134/82 Pulse Oximetry 97 Oxygen Delivery Me thod Room Air Oxygen Flow Rate 2 Fraction of Inspir ed Oxygen Hydration adequate: Yes Nausea and vomiting: No Pain level: 2 Mental status: Baseline
== END 2022-05-02 09:10 | disposition home or self-care (01) ==
PROVIDERS: Visit Provider Obstetrics & Gynecology
PROC: 0UB97ZZ Excision of Uterus, Via Natural or Artificial Opening (ICD-10-PCS; CPT 57520; principal; 2022-05-02 07:00)
DX: N87.0 Mild cervical dysplasia (principal); J44.9 Chronic obstructive pulmonary disease, unspecified; K21.9 Gastro-esophageal reflux disease without esophagitis; F17.200 Nicotine dependence, unspecified, uncomplicated; Z88.0 Allergy status to penicillin
CPT/HCPCS: 57460; 80053; 81001; 85025; 86850; 86900; 88307; J1100; J1885; J1956; J2250; J2405; J2704; J3010; J3370; J7030; J7040

== ENCOUNTER 2022-05-20 05:08 | Emergency (ER) | payer MEDICARE, MEDICAID, SELFPAY ==
[2022-05-20 05:20] VITALS: BP 134/89; PULSE 99; RESP 18; TEMP 36.4; O2SAT 96; BMI 20.7
[2022-05-20] MEDS: diphenhydrAMINE 50 mg Capsule PO (06:06)
--- NOTE | 2022-05-20 06:15 | W.ED.FEMALGU ---
HPI - Female Genitourinary General: Chief complaint: Urogenital-Female Stated complaint: vag itching, itching buttock Time Seen by Provider: 05/20/22 05:36 Source: patient Mode of arrival: ambulatory Limitations: no limitations History of Present Illness: 51-year-old female states she had a cone procedure done a little over a week ago she states that today she been having severe itching in her vaginal and anal region. She denies any pain denies any fever denies any redness denies any discharge denies any worsening improving factors. Associated symptoms: Deny abdominal pain, headache(s), nausea or vaginal bleeding Review of Systems Const: Denies: fever(s), chills, body aches or change in appetite Eyes: Denies: blurry vision or eye discomfort ENMT: Denies: throat pain or dental pain Card: Denies: chest pain Resp: Denies: dyspnea GI: Denies: abdominal pain, nausea, vomiting or diarrhea : Reports: genital pruritis; Denies: dysuria Musc: Denies: neck pain or back pain Skin/Breast: Denies: rash Neuro: Denies: headache(s) Psych: Denies: depression Jose/Lymph: Denies: easy bruising All/Imm: Denies: urticaria PFSH ED PFSH: Medical History (Updated 05/20/22 @ 06:15 by Laila Potter MD) Alcohol abuse Bipolar disorder with psychotic features COPD (chronic obstructive pulmonary disease) Fibromyalgia muscle pain GERD (gastroesophageal reflux disease) Methamphetamine abuse Psychiatric care Surgical History (Updated 05/16/22 @ 12:01 by Qiana Santiago APN, CASSIA) Gastric bypass status for obesity H/O cone biopsy of cervix (~05/02/22) 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 Performed by Dr. Grant for BABATUNDE 3 diagnosis. Family History Father Diabetes Stroke Heart disease Mother Hypertension Thyroid condition Brother Heart disease Denies family history of Colon cancer Ovarian cancer Breast cancer Uterine cancer Social History Smoking and tobacco status: current every day smoker Alcohol intake: former Year of sobriety/quit date alcohol: 08/09 Physical Exam Const: COMMON NORMALS: no acute distress, patient oriented x3 and healthy appearing HENMT: COMMON NORMALS: normocephalic and atraumatic HEAD & SCALP: normocephalic and atraumatic Eye: COMMON NORMALS: Equal, round and reactive pupils present and EOMs intact bilaterally PUPIL: Yes Equal, round and reactive pupils present Neck/C-Spine: COMMON NORMALS: full ROM and supple Chest: COMMONS NORMALS: normal inspection of the chest and normal palpation of entire chest wall Resp: COMMON NORMALS: normal respiratory effort, No retractions, No use of accessory muscles and clear to auscultation bilaterally AUSCULTATION: clear to auscultation bilaterally Cardio: COMMON NORMALS: regular rate, regular rhythm and No murmurs present (Cardio) RATE: regular rate RHYTHM: regular rhythm GI: COMMON NORMALS: Normal to inspection, nondistended, normoactive bowel sounds present, Soft to palpation, non-tender and no masses PALPATION: Yes Soft to palpation : SPECULUM EXAM - VAGINA: No vaginal bleeding BIMANUAL EXAM - ADNEXA, OTHER: Yes normal rectovaginal exam RECTO-VAGINAL: normal rectovaginal exam OB/EXTERNAL & SPECULUM: external exam normal; no vulvar erythema, vaginal bleeding and vaginal discharge Extremity: COMMON NORMALS: normal to inspection and full ROM Neuro: COMMON NORMALS: patient oriented x3, moves all extremities and no focal motor deficits Psych: COMMON NORMALS: mental status grossly normal, Normal thought process present and cooperative THOUGHT PROCESS: Normal thought process present Skin: COMMON NORMALS: no rashes or lesions noted and no wounds GENERAL SKIN EXAM: no rashes or lesions noted Course Vital Signs: Vital signs: Vital Signs Temperature 97.6 F 05/20/22 05:20 Pulse Rate 99 05/20/22 05:20 Respiratory Rate 18 05/20/22 05:20 Blood Pressure 134/89 05/20/22 05:20 Pulse Oximetry 96 05/20/22 05:20 MDM - Female Medical Decision Making Patient presents here with vaginal pruritus her exam here is benign she did have a recent cone procedure on pelvic exam tissues healing well no signs of infection likely having itchiness from the wound healing she feels improved after Benadryl we will prescribe her hydroxyzine at home Discharge Plan Discharge Patient Disposition: Home Clinical Impression: Vagina itching Condition: Stable Prescriptions: New hydroxyzine HCl 50 mg tablet 50 mg PO BID PRN (Reason: itching) Qty: 20 0RF No Action multivitamin Tablet 1 tab PO DAILY Galzin 25 mg (zinc) capsule 25 mg PO DAILY ferrous sulfate 325 mg (65 mg iron) tablet 325 mg PO DAILY ascorbate calcium (vitamin C) 500 mg tablet 500 mg PO DAILY cholecalciferol (vitamin D3) 25 mcg (1,000 unit) capsule 25 mcg PO DAILY diclofenac potassium 25 mg tablet 1 mg PO DAILY ascorbic acid (vitamin C) 1,000 mg capsule 1 g PO Q6H cyclobenzaprine 10 mg tablet 10 mg PO DAILY acetaminophen 325 mg capsule 325 mg PO Q4H PRN (Reason: fever or pain) Qty: 60 0RF omeprazole 20 mg Capsule,Delayed Release(Dr/Ec) 20 mg PO BID trazodone 50 mg tablet 50 mg PO BEDTIME 30 Days Qty: 30 1RF gabapentin 300 mg Capsule 300 mg PO TID 30 Days Qty: 90 1RF olanzapine [Zyprexa] 5 mg tablet 5 mg PO DAILY 30 Days Qty: 30 1RF Discharge Orders: Discharge ED (Routine); Ordered 05/20/22 Ordered By: Laila Potter Discharge Diet: Advance as tolerated Discharge Activity: Resume usual activity Patient Instructions: Itchy Skin (ED) Coding Level of Care Code ED Litigation Coordinator for Elke Ortiz
--- NOTE | 2022-05-30 10:06 | DCPLANNER ---
manager party called patient due to no primary care physician - no answer at this time
== END 2022-05-20 06:21 | disposition home or self-care (01) ==
PROVIDERS: Emergency Provider Emergency Medicine
DX: L29.2 Pruritus vulvae (principal); F17.210 Nicotine dependence, cigarettes, uncomplicated; J44.9 Chronic obstructive pulmonary disease, unspecified
CPT/HCPCS: 99283; Q0163

== ENCOUNTER 2022-08-28 15:40 | Outpatient (CLI) | payer MEDICARE, MEDICAID, SELFPAY ==
[2022-08-28 16:30] LABS: Basophils # 0.1 10^3/uL (0.0-0.1); Basophils % 1.6 %; Eosinophils % 0.8 %; Hematocrit 37.5 % (37.0-47.0); Hemoglobin 12.2 g/dL (11.5-15.3); Lymphocytes % 26.4 %; Mean Corpuscular HGB Conc 32.5 g/dL (30.0-36.0); Mean Corpuscular Hemoglobin 31.1 pg (28.0-34.0); Mean Corpuscular Volume 95.7 fl (81-99); Mean Platelet Volume 10.3 fL (7.4-10.4); Monocytes # 0.4 10^3/uL (0.2-0.9); Monocytes % 11.5 %; Neutrophils # 2.14 10^3/uL (1.8-7.7); Neutrophils % 58.9 %; Nucleated Red Blood Cells % 0 %; Platelet Count 111 10^3/cmm (130-400); Red Blood Count 3.92 10^6/uL (4.1-5.3); Red Cell Distribution Width 12.6 % (12.1-15.1); White Blood Count 3.6 10^3/uL (4.0-10.0)
[2022-08-28 16:43] LABS: Alanine Aminotransferase 105 U/L (0-33); Albumin Level 4.2 g/dL (3.5-5.2); Alkaline Phosphatase 128 U/L (35-105); Anion Gap 13.1 (5-19); Aspartate Amino Transferase 238 U/L (0-32); Blood Urea Nitrogen 4 mg/dL (6-20); Calcium 8.4 mg/dL (8.5-10.5); Carbon Dioxide 26 mmol/L (22-29); Chloride 103 mmol/L (98-107); Globulin 3.5 g/dL (1.3-4.6); Glomerular Filtration Rate 236.4 mL/min (90-130); Glucose 86 mg/dL (65-115); Iron 80 ug/dL (37-145); Magnesium 2.1 mg/dL (1.7-2.3); Osmolality Calculated 282 mOsm/kg (285-295); Phosphorus 3.6 mg/dL (2.5-4.5); Potassium 4.1 mmol/L (3.5-5.1); Prealbumin 20.4 mg/dL (20-40); Sodium 138 mmol/L (136-145); Total Bilirubin 0.3 mg/dL (0.15-1.2); Total Iron Binding Capacity 420 mcg/dl; Total Protein 7.7 g/dL (6.6-8.7); Unsaturated Iron Binding 340 ug/dL (112-347)
[2022-08-28 16:58] LABS: 25 Hydroxy Vitamin D 25 ng/mL (30-100); Vitamin B12 748 pg/mL (232-1245)
[2022-08-28 17:07] LABS: Parathyroid Hormone 63.4 pg/mL (15-65)
[2022-08-28 17:10] LABS: Calcium 8.6 mg/dL (8.5-10.5)
[2022-08-28 18:00] LABS: Folate Level 14.5 ng/mL (4.8-37.3)
[2022-08-31 11:49] LABS: Vitamin B6 Plasma 14.5 ng/mL (2.1-21.7)
[2022-09-03 16:49] LABS: Copper Level 144 mcg/dL (70-175)
[2022-09-04 12:09] LABS: Alpha-Tocopherol 8.4 mg/L; Beta-Gamma-Tocopherol <1.0 mg/L (<4.4); Vitamin A (Retinol) 68 mcg/dL (38-98)
== END 2022-08-28 15:41 | disposition home or self-care (01) ==
LOC: LAB 15:45
PROVIDERS: PCP Family Medicine; Visit Provider Family Medicine
DX: E55.9 Vitamin D deficiency, unspecified (principal); Z51.81 Encounter for therapeutic drug level monitoring; Z98.84 Bariatric surgery status; R74.8 Abnormal levels of other serum enzymes; R53.81 Other malaise; R53.83 Other fatigue; R25.2 Cramp and spasm
CPT/HCPCS: 36415; 80053; 82306; 82310; 82525; 82607; 82746; 83540; 83550; 83735; 83970; 84100; 84134; 84207; 84446; 84590; 85025

== ENCOUNTER 2022-09-21 15:39 | Outpatient (CLI) | payer MEDICARE, MEDICAID, SELFPAY ==
--- NOTE | 2022-09-21 15:47 | MM_ITS ---
WS: [id number] BILATERAL 3D TOMOSYNTHESIS DIGITAL SCREENING MAMMOGRAPHY WITH CAD CLINICAL INFORMATION: SCREENING HISTORY: Screening mammogram. No current complaints. COMPARISON: None. TECHNIQUE: Bilateral CC and MLO views. FINDINGS: Scattered fibroglandular densities bilaterally. No suspicious focal mass, asymmetry, calcifications, or architectural distortion. No evidence of malignancy. A few incidental punctate and lucent centered calcifications. MM/[place] [id number] IMPRESSION: BI-RADS: 2-Benign FOLLOW UP: 1 Year Follow-up Recommend return to annual screening mammography.
== END 2022-09-21 15:40 | disposition home or self-care (01) ==
PROVIDERS: PCP Family Medicine; Visit Provider Family Medicine
DX: Z12.31 Encounter for screening mammogram for malignant neoplasm of breast (principal)
CPT/HCPCS: 77063; 77067

== ENCOUNTER → 2022-10-25 12:39 | Outpatient (BNVA) | payer OTHER, MEDICAID, SELFPAY | PROVIDERS: PCP Family Medicine; Visit Provider Family Medicine | DX: Z51.81 Encounter for therapeutic drug level monitoring (principal); B19.20 Unspecified viral hepatitis C without hepatic coma; R74.8 Abnormal levels of other serum enzymes | CPT/HCPCS: 80053; 82977; 85025; 87340; 87522; 87806; 87902 ==

== ENCOUNTER 2022-11-25 15:55 | Inpatient (IN) | payer MEDICARE, MEDICAID, SELFPAY ==
[2022-11-25 16:05] VITALS: BP 111/76; PULSE 112; RESP 16; TEMP 36.6; O2SAT 97; BMI 19.9
--- NOTE | 2022-11-25 16:28 | ED.C_ITS ---
HPI - Psych General: Chief Complaint: Psychiatric Symptoms Stated Complaint: low abd pain Time Seen by Provider: 11/25/22 16:14 History of Present Illness: Patient arrives to the ER with complaints of drinking a ratio 10. Patient stated that the a man killed her dog which was her service animal. And she has been making statements that she can handle life without her dog. She has been laying in the ditch beside her dog. Patient admits she wants to just kill the man who killed her dog. Patient states she needs help and when she drinks she does know if she can control herself. Patient asked about to be admitted to our psychiatric unit. Review of Systems General: Reports: 10 or more systems reviewed and unremarkable except in HPI and below PFSH ED PFSH: Medical History Alcohol abuse Bipolar disorder with psychotic features COPD (chronic obstructive pulmonary disease) Fibromyalgia muscle pain GERD (gastroesophageal reflux disease) Methamphetamine abuse Psychiatric care Surgical History Gastric bypass status for obesity H/O cone biopsy of cervix (~05/02/22) BABATUNDE 1 with focal high grade dysplasia with endocervical glandular involve ment. Performed by Dr. Grant for BABATUNDE 3 diagnosis. Family History Father Diabetes Stroke Heart disease Mother Hypertension Thyroid condition Brother Heart disease Denies family history of Colon cancer Ovarian cancer Breast cancer Uterine cancer Social History Smoking and tobacco status: current every day smoker cigarettes Packs smoked per day: 2 Substance/Drug Use: former Date of last use: Former cocaine use Physical Exam Const: COMMON NORMALS: no acute distress, average body habitus, patient oriented x3, no limitations, healthy appearing, alert and well nourished HENMT: COMMON NORMALS: normocephalic, atraumatic, hearing grossly normal bilaterally, external ears normal, Normal external nose present and moist oral mucous membranes HEAD & SCALP: normocephalic and atraumatic NOSE: Normal external nose present EXTERNAL EAR: Yes external ears normal Eye: COMMON NORMALS: Equal, round and reactive pupils present, EOMs intact bilaterally, conjunctivae normal and no scleral icterus CONJUNCTIVA: Yes conjunctivae normal PUPIL: Yes Equal, round and reactive pupils present Neck/C-Spine: COMMON NORMALS: full ROM, no lymphadenopathy, supple, no meningeal signs, no JVD and Thyroid normal THYROID: Thyroid normal Chest: COMMONS NORMALS: normal inspection of the chest and normal palpation of entire chest wall Resp: COMMON NORMALS: normal respiratory effort, No retractions, No use of accessory muscles and clear to auscultation bilaterally AUSCULTATION: clear to auscultation bilaterally Cardio: COMMON NORMALS: no JVD, regular rate, regular rhythm, S1 normal heart sound present, S2 normal heart sound present, No gallops present (Cardio), No clicks present (Cardio), No murmurs present (Cardio) and No rub (Cardio) RATE: regular rate RHYTHM: regular rhythm HEART SOUNDS: S1 normal heart sound present and S2 normal heart sound present GI: COMMON NORMALS: Normal to inspection, nondistended, normoactive bowel sounds present, Soft to palpation, non-tender, No hepatosplenomegaly present and no masses PALPATION: Yes Soft to palpation and Yes No hepatosplenomegaly present : COMMON NORMALS: Yes no CVA tenderness BLADDER/KIDNEY EXAM: Yes no CVA tenderness Back/Pelvis: COMMON NORMALS: no CVA tenderness Neuro: COMMON NORMALS: patient oriented x3 SENSORIUM/ORIENTATION: Yes alert MENINGEAL SIGNS: Yes no meningeal signs Course Vital Signs: Vital signs: Vital Signs Temperature 97.9 F 11/25/22 16:05 Pulse Rate 111 H 11/25/22 20:18 Respiratory Rate 18 11/25/22 20:18 Blood Pressure 133/73 11/25/22 20:18 Pulse Oximetry 92 11/25/22 20:18 Oxygen Delivery Me thod Room Air 11/25/22 16:54 MDM - Psych Medical Decision Making Patient presents to the ER with complaints of alcohol intoxication, paranoid schizophrenia, suicidal homicidal ideation secondary to her service animal being killed. Patient was given 2 mg Ativan, 100 mg of thiamine p.o., patient will be given a banana bag. Patient's alcohol was holly in the first time is approximately 332 and a second time about 3 hours later was approximately 172 Dr. Ray was consulted who agreed to take the patient for further evaluation and treatment. Differential Diagnosis Likely depression; Unlikely acute psychosis, chronic schizophrenia, suicidal ideation, bipolar disorder, drug-induced psychotic disorder or acute anxiety Medical Records I reviewed the patient's medical records. Lab Data I reviewed the patient's lab results. 11/25/22 16:57 11/25/22 16:57 Laboratory Results WBC 6.95 10^3/uL (3.29-11.43) 11/25/22 16:57 RBC 4.48 10^6/uL (3.85-5.65) 11/25/22 16:57 Hgb 14.30 g/dL (11.27-16.99) 11/25/22 16:57 Hct 43.3 % (36-47) 11/25/22 16:57 MCV 96.7 fl (85-98) 11/25/22 16:57 MCH 31.9 pg (27-33) 11/25/22 16:57 MCHC 33.0 g/dL (30-55) 11/25/22 16:57 RDW 14.2 % (12.1-15.1) 11/25/22 16:57 Plt Count 92 10^3/cmm (157-399) L 11/25/22 16:57 MPV 10.0 fL (7.4-10.4) 11/25/22 16:57 Neut % (Auto) 61.3 % 11/25/22 16:57 Lymph % (Auto) 26.8 % 11/25/22 16:57 Fountain % (Auto) 9.2 % 11/25/22 16:57 Eos % (Auto) 0.6 % 11/25/22 16:57 Baso % (Auto) 1.7 % 11/25/22 16:57 Neut # (Auto) 4.26 10^3/uL (1.8-7.7) 11/25/22 16:57 Lymph # (Auto) 1.9 10^3/uL (0.8-4.8) 11/25/22 16:57 Fountain # (Auto) 0.6 10^3/uL (0.2-0.9) 11/25/22 16:57 Eos # (Auto) 0.0 10^3/uL (0.0-0.8) 11/25/22 16:57 Baso # (Auto) 0.1 10^3/uL (0.0-0.1) 11/25/22 16:57 Nucleated RBC % (auto) 0 % 11/25/22 16:57 Nucleated RBCs # 0.0 /100WBC 11/25/22 16:57 Sodium 138 mmol/L (136-145) 11/25/22 16:57 Potassium 3.7 mmol/L (3.5-5.1) 11/25/22 16:57 Chloride 101 mmol/L (98-107) 11/25/22 16:57 Carbon Dioxide 25 mmol/L (22-29) 11/25/22 16:57 Anion Gap 15.7 (5-19) 11/25/22 16:57 BUN 3 mg/dL (6-20) L 11/25/22 16:57 Creatinine 0.5 mg/dL (0.5-0.9) 11/25/22 16:57 GFR Calculation 130.6 mL/min (90-130) H 11/25/22 16:57 Glucose 97 mg/dL (65-115) 11/25/22 16:57 Calculated Osmolality 282 mOsm/kg (285-295) L 11/25/22 16:57 Calcium 8.9 mg/dL (8.5-10.5) 11/25/22 16:57 Magnesium 2.4 mg/dL (1.7-2.3) H 11/25/22 16:57 Total Bilirubin 0.5 mg/dL (0.15-1.2) 11/25/22 16:57 AST 333 U/L (0-32) H 11/25/22 16:57 ALT 89 U/L (0-33) H 11/25/22 16:57 Alkaline Phosphatase 167 U/L (35-105) H 11/25/22 16:57 Total Protein 8.6 g/dL (6.6-8.7) 11/25/22 16:57 Albumin 4.2 g/dL (3.5-5.2) 11/25/22 16:57 Globulin 4.4 g/dL (1.3-4.6) 11/25/22 16:57 Lipase 99 U/L (13-60) H 11/25/22 16:57 HCG, Qual Negative (Negative) 11/25/22 16:40 Urine Color Yellow (Yellow) 11/25/22 16:40 Urine Appearance Clear (CLEAR) 11/25/22 16:40 Urine pH 5 (5-7) 11/25/22 16:40 Ur Specific Crum 1.020 (1.005-1.030) 11/25/22 16:40 Urine Protein Trace (Negative) 11/25/22 16:40 Urine Glucose (UA) Norm (Normal) 11/25/22 16:40 Urine Ketones Negative (Negative) 11/25/22 16:40 Urine Blood Neg (Negative) 11/25/22 16:40 Urine Nitrate Negative (Negative) 11/25/22 16:40 Urine Bilirubin Neg (Negative) 11/25/22 16:40 Urine Urobilinogen Norm mg/dL (Negative) 11/25/22 16:40 Ur Leukocyte Esterase Negative (Negative) 11/25/22 16:40 Urine RBC 0-4 /hpf (0-2) H 11/25/22 16:40 Urine WBC 0-4 /hpf (0-5) H 11/25/22 16:40 Ur Squamous Epith Cells 0-4 /hpf (0-5) H 11/25/22 16:40 Amorphous Sediment Not Reportable 11/25/22 16:40 Urine Bacteria Trace /hpf (NONE) 11/25/22 16:40 Urine Mucus 1+ /hpf 11/25/22 16:40 Salicylates 0.6 mg/dL (3-10) L 11/25/22 16:57 Urine Opiates Screen Negative ng/mL (Negative) 11/25/22 16:40 Acetaminophen < 5.0 ug/mL (10-30) L 11/25/22 16:57 Ur Barbiturates Screen Negative ng/mL (Negative) 11/25/22 16:40 Ur Phencyclidine Scrn Negative ng/mL (Negative) 11/25/22 16:40 Ur Amphetamines Screen Negative ng/mL (Negative) 11/25/22 16:40 U Benzodiazepines Scrn Negative ng/mL (Negative) 11/25/22 16:40 Urine Cocaine Screen Negative ng/mL (Negative) 11/25/22 16:40 U Marijuana (THC) Screen Negative ng/mL (Negative) 11/25/22 16:40 Ethyl Alcohol 174 mg/dL (0-10) H 11/25/22 21:07 No radiology studies performed this visit Discharge Plan Discharge Patient Disposition: Admitted As Inpatient Clinical Impression: Alcohol use disorder, severe, dependence, Homicidal ideation, Paranoid schizophrenia Depression Qualifiers: Depression Type: unspecified Qualified Code(s): F32.A - Depression, unspecified Condition: Stable Coding Level of Care Code ED Locker Room Supervisor for Elke Ortiz
[2022-11-25 16:40] VITALS: BP 137/89; PULSE 109; RESP 19; O2SAT 97
--- NOTE | 2022-11-25 16:42 | PC.PHAR ---
pt states she takes care of her own medications-pt states she takes the medications entered pt states she hasnt taken meds today because she has been drinking-pt states she takes trazodone 50mg hs ext shows last filled 12/08/21 90d/s-notes are made in the pharmacy comments
[2022-11-25 16:49] LABS: HCG Qualitative Urine. Negative (Negative)
[2022-11-25 16:54] VITALS: O2SAT 97
[2022-11-25 17:13] LABS: Basophils # 0.1 10^3/uL (0.0-0.1); Basophils % 1.7 %; Eosinophils % 0.6 %; Hematocrit 43.3 % (36-47); Lymphocytes # 1.9 10^3/uL (0.8-4.8); Lymphocytes % 26.8 %; Mean Corpuscular Hemoglobin 31.9 pg (27-33); Mean Corpuscular Volume 96.7 fl (85-98); Monocytes # 0.6 10^3/uL (0.2-0.9); Monocytes % 9.2 %; Neutrophils # 4.26 10^3/uL (1.8-7.7); Neutrophils % 61.3 %; Nucleated Red Blood Cells % 0 %; Platelet Count 92 10^3/cmm (157-399); Red Blood Count 4.48 10^6/uL (3.85-5.65); Red Cell Distribution Width 14.2 % (12.1-15.1); White Blood Count 6.95 10^3/uL (3.29-11.43)
[2022-11-25 17:22] LABS: Amphetamines Screen Urine Negative (Negative); Barbiturates Screen Urine Negative (Negative); Benzodiazepines Screen Urine Negative (Negative); Cocaine Screen Urine Negative (Negative); Opiate Screen Urine Negative (Negative); PCP Screen Urine Negative (Negative); THC Screen Urine Negative (Negative)
[2022-11-25 17:32] LABS: Protein Urine Trace (Negative); Urine Appearance Clear (CLEAR); Urine Color Yellow (Yellow); pH Urine 5 (5-7)
[2022-11-25 17:33] LABS: Add Urine Culture? No; Add Urine Microscopic? YES; Bacteria Urine TRACE /hpf; Bilirubin Urine Neg (Negative); Blood Urine Neg (Negative); Glucose Urine UA Norm (Normal); Ketones Urine Negative (Negative); Leukocyte Esterase Urine Negative (Negative); Mucus Urine 1+ /hpf; Nitrate Urine Negative (Negative); RBC Urine 0-4 /hpf (0-2); Squamous Epithelial Cell Urine 0-4 /hpf (0-5); Urobilinogen Urine Norm (Negative); WBC Urine 0-4 /hpf (0-5)
[2022-11-25 17:40] LABS: Acetaminophen < 5.0 ug/mL (10-30); Alanine Aminotransferase 89 U/L (0-33); Albumin Level 4.2 g/dL (3.5-5.2); Alkaline Phosphatase 167 U/L (35-105); Anion Gap 15.7 (5-19); Aspartate Amino Transferase 333 U/L (0-32); Blood Urea Nitrogen 3 mg/dL (6-20); Calcium 8.9 mg/dL (8.5-10.5); Carbon Dioxide 25 mmol/L (22-29); Chloride 101 mmol/L (98-107); Globulin 4.4 g/dL (1.3-4.6); Glomerular Filtration Rate 130.6 mL/min (90-130); Glucose 97 mg/dL (65-115); Lipase 99 U/L (13-60); Magnesium 2.4 mg/dL (1.7-2.3); Osmolality Calculated 282 mOsm/kg (285-295); Potassium 3.7 mmol/L (3.5-5.1); Salicylate 0.6 mg/dL (3-10); Sodium 138 mmol/L (136-145); Total Bilirubin 0.5 mg/dL (0.15-1.2); Total Protein 8.6 g/dL (6.6-8.7)
[2022-11-25 17:41] LABS: Alcohol Level 322 mg/dL (0-10)
[2022-11-25] MEDS: nicotine 21 mg Patch 1 PATCH TRANSDERMA (18:05)
[2022-11-25 20:18] VITALS: BP 133/73; PULSE 111; RESP 18; O2SAT 92
[2022-11-25] MEDS: ketorolac 60 mg/2 mL INJ IM (20:27)
[2022-11-25] MEDS: LORazepam 1 mg Tablet PO (20:28)
[2022-11-25] MEDS: thiamine 100 mg Tablet PO (20:28)
[2022-11-25 21:29] LABS: Alcohol Level 174 mg/dL (0-10)
[2022-11-25] MEDS: folic acid 1 MG, multivitamin inj 10 ML, thiamine 100 MG in sodium chloride 0.9% 1,000 ML 252.8 MG IV (23:26)
[2022-11-25 23:28] VITALS: BP 110/70; PULSE 95; RESP 14; O2SAT 92
[2022-11-26 01:08] VITALS: RESP 14
[2022-11-26 03:14] VITALS: BP 143/77; PULSE 97; RESP 16; O2SAT 94
[2022-11-26 04:17] VITALS: BP 121/81; PULSE 100; RESP 18; TEMP 36.9; O2SAT 97
[2022-11-26] MEDS: LORazepam 2 mg Tablet PO (04:44)
--- NOTE | 2022-11-26 04:57 | PC.NURSE ---
Pt arrived from ER w/security and RN at side. Pt anxious but cooperative. No respiratory distress present. Pt scored 16 on CIWA, PRN Ativan administered per orders.
[2022-11-26 06:00] VITALS: BP 121/81; PULSE 100; RESP 18; TEMP 36.9; O2SAT 97
[2022-11-26] MEDS: multivitamin therapeutic Tablet 1 TAB PO (09:05)
[2022-11-26] MEDS: folic acid 1 mg Tablet PO (09:05)
[2022-11-26] MEDS: thiamine 100 mg Tablet PO (09:05)
[2022-11-26] MEDS: ondansetron 4 MG Tablet PO (09:05)
[2022-11-26] MEDS: nicotine 21 mg Patch 1 PATCH TRANSDERMA (09:09)
[2022-11-26] MEDS: acetaminophen 325 mg Tablet 650 MG PO ×2 (09:13→17:15)
--- NOTE | 2022-11-26 09:13 | PC.NURSE ---
Patient given 4mg Zofran. Patient vomited after eating her breakfast. patient reports nausea.
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
[2022-11-26] MEDS: OLANZapine 5 mg ODT PO (13:50)
[2022-11-26 14:00] VITALS: BP 128/75; PULSE 120; RESP 16; TEMP 37; O2SAT 100
--- NOTE | 2022-11-26 14:18 | PC.NURSE ---
laying in bed. patient anxious and upset because she is thinking about her dog that recently . This nurse encouraged patient to attend group or read a book, something to keep her mind occupied. Patient declined, stated that she will probably attend group tomorrow. Administered 5mg Zyprexa ODT.
[2022-11-26 19:44] VITALS: BP 115/69; PULSE 80; RESP 20; TEMP 37.2; O2SAT 98
[2022-11-26] MEDS: divalproex DR 500 mg Tablet PO (20:34)
[2022-11-26] MEDS: trazodone 50 mg Tablet PO (20:34)
[2022-11-27] MEDS: LORazepam 2 mg Tablet PO ×3 (02:09→14:32)
[2022-11-27] MEDS: acetaminophen 325 mg Tablet 650 MG PO (02:10)
--- NOTE | 2022-11-27 02:22 | PC.NURSE ---
Pt up to the desk for tylenol with complaints of body aches and a headache rating 6/10. Tylenol 650mg po given. Pt scored 20 on CIWA scale, Ativan 2mg po given per CIWA protocol.
[2022-11-27 06:00] VITALS: RESP 16
[2022-11-27] MEDS: folic acid 1 mg Tablet PO (08:32)
[2022-11-27] MEDS: multivitamin therapeutic Tablet 1 TAB PO (08:32)
[2022-11-27] MEDS: divalproex DR 500 mg Tablet PO ×2 (08:32→17:38)
[2022-11-27] MEDS: thiamine 100 mg Tablet PO (08:32)
[2022-11-27] MEDS: neomycin-poly-bacitracin oint 28 gm 1 APPLIC TOPICAL (08:56)
[2022-11-27] MEDS: ondansetron 4 MG Tablet PO (08:56)
--- NOTE | 2022-11-27 10:57 | W.PM.NPUPNS ---
Subjective NPU Subjective: Patient presented today reporting that she is doing okay in general. We discussed concerns that she underrepresented the drinking problem including how long she had been drinking. She was somewhat resistant to having that conversation but did ultimately except that she needs a higher level of care and is working with the social work team on rehab possibilities. She denies any side effects to the Depakote being initiated. She also reported having success with Vivitrol and feels she needs to restart that as soon as she can. Mental Status Exam MSE Comments: This is a slender versus underweight white female in hospital scrubs with limited grooming/disheveled appearance but adequate eye contact. No abnormal movements except for mild psychomotor retardation. Cooperative with exam in no acute distress. Speech was normal rate and volume. Mood described as not good, affect is congruent and slightly subdued. Thought process, organized. Thought content: patient denies any suicidal or homicidal ideation, no delusions reported or noted, and denies any auditory or visual hallucinations. Attention and concentration are intact and memory is reliable but none were formally tested. She is alert and oriented x3. Insight and judgment are fair. Impulse control is limited versus impaired.? Vitals/I&O/Wt Last Vital Signs Temp 99.0 F 11/26/22 19:44 Pulse 80 11/26/22 19:44 Resp 16 11/27/22 06:00 BP 115/69 11/26/22 19:44 Pulse Ox 98 11/26/22 19:44 O2 Del Method Room Air 11/26/22 19:44 Weight last 48 hrs Weight 61.235 kg Data NPU 11/25/22 16:57 11/25/22 16:57 A&P Assessment and plan (1) Suicidal ideation: (2) Hallucinations: (3) Methamphetamine abuse: (4) Alcohol use disorder, severe, dependence: (5) Depression: Qualifiers: Depression Type: unspecified Qualified Code(s): F32.A - Depression, unspecified Plan This is a 52 year old white female with a long history of alcohol addiction and significant life disruption secondary to alcohol use with mental health challenges who presents about 16 months after her last hospitalization after her dog was killed while she watched. 1. Restarted Depakote 500 mg p.o. twice daily. She wants to restart Vivitrol by the time she discharges 2. Encourage individual, group and milieu therapy 3. Continue q-15 minute check for safety 4. Recommend sober living treatment at the highest level of care to which the patient is willing to commit. She is working with social work team for possible inpatient rehab options Involuntary Hold Information 96 Hour Hold: 96 Hour Involuntary Admission: No Attestations NPU Medical Necessity Statement*: Inpatient hospitalization is medically necessary and the clinically appropriate intervention at this time. We will monitor medications and make changes as indicated. Likely length of stay is three to five days. Coding Level of Care Code Acute Code for [facility] Fwd Diagnoses Suicidal ideation R45.851 Hallucinations R44.3 Methamphetamine abuse F15.10 Alcohol use disorder, severe, dependence F10.20 Depression F32.A Depression Type: unspecified
[2022-11-27 14:00] VITALS: BP 105/62; PULSE 82; RESP 18; TEMP 37.2; O2SAT 98
[2022-11-27] MEDS: calcium carbonate 500 mg Chew Tablet 1000 MG PO (14:29)
--- NOTE | 2022-11-27 14:33 | PC.NURSE ---
CIWA SCORE 10 ATIVAN 2 MG GIVEN PO PER PROTOCOL, PT C/O NAUSEA, MILD ANXIETY
[2022-11-27] MEDS: nicotine 4 mg lozenge MUCOUS MEM (17:38)
[2022-11-27 20:09] VITALS: BP 126/75; PULSE 92; RESP 20; TEMP 36.9; O2SAT 98
[2022-11-27] MEDS: trazodone 50 mg Tablet PO (20:10)
[2022-11-28 06:00] VITALS: BP 121/81; PULSE 77; RESP 18; TEMP 37.2; O2SAT 97
[2022-11-28] MEDS: nicotine 21 mg Patch 1 PATCH TRANSDERMA (08:48)
[2022-11-28] MEDS: multivitamin therapeutic Tablet 1 TAB PO (08:49)
[2022-11-28] MEDS: folic acid 1 mg Tablet PO (08:49)
[2022-11-28] MEDS: ondansetron 4 MG Tablet PO (08:49)
[2022-11-28] MEDS: divalproex DR 500 mg Tablet PO ×2 (08:49→17:43)
[2022-11-28] MEDS: thiamine 100 mg Tablet PO (08:49)
--- NOTE | 2022-11-28 09:15 | W.PM.NPUPNS ---
Subjective NPU Subjective: Patient presented today reporting that she is feeling much better and was very focused on being a voluntary patient and very focused on the idea that she was being discharged tomorrow. We had a lengthy discussion about her seeming to fall away from a sobriety and recovery focus and seeming more focused on discharge even though her landlord and everyone involved seem to be supportive of her going to an inpatient rehab as soon as possible to get the extensive drinking under control which she has continued to downplay. We continue to discuss Vivitrol and Antabuse. Mental Status Exam MSE Comments: This is a slender versus underweight white female in hospital scrubs with limited grooming/disheveled appearance but adequate eye contact. No abnormal movements except for mild psychomotor retardation. Cooperative with exam in no acute distress. Speech was normal rate and volume. Mood described as much better, affect is congruent and slightly subdued. Thought process, organized. Thought content: patient denies any suicidal or homicidal ideation, no delusions reported or noted, and denies any auditory or visual hallucinations. Attention and concentration are intact and memory is reliable but none were formally tested. She is alert and oriented x3. Insight and judgment are fair. Impulse control is limited versus impaired.? Vitals/I&O/Wt Last Vital Signs Temp 98.9 F 11/28/22 06:00 Pulse 77 11/28/22 06:00 Resp 18 11/28/22 06:00 BP 121/81 11/28/22 06:00 Pulse Ox 97 11/28/22 06:00 O2 Del Method Room Air 11/28/22 06:00 Data NPU 11/25/22 16:57 11/25/22 16:57 A&P Assessment and plan (1) Suicidal ideation: (2) Hallucinations: (3) Methamphetamine abuse: (4) Alcohol use disorder, severe, dependence: (5) Depression: Qualifiers: Depression Type: unspecified Qualified Code(s): F32.A - Depression, unspecified Plan This is a 52 year old white female with a long history of alcohol addiction and significant life disruption secondary to alcohol use with mental health challenges who presents about 16 months after her last hospitalization after her dog was killed while she watched. 1. Restarted Depakote 500 mg p.o. twice daily. She wants to restart Vivitrol by the time she discharges 2. Encourage individual, group and milieu therapy 3. Continue q-15 minute check for safety 4. Recommend sober living treatment at the highest level of care to which the patient is willing to commit. She was working with social work team for possible inpatient rehab options, however it appears now that she is very focused on discharge and her recovery thinking has been put to the [place]. Involuntary Hold Information 96 Hour Hold: 96 Hour Involuntary Admission: No Attestations NPU Medical Necessity Statement*: Inpatient hospitalization is medically necessary and the clinically appropriate intervention at this time. We will monitor medications and make changes as indicated. Likely length of stay is 1-3 days. Coding Level of Care Code Acute Code for [facility] Fwd Diagnoses Suicidal ideation R45.851 Hallucinations R44.3 Methamphetamine abuse F15.10 Alcohol use disorder, severe, dependence F10.20 Depression F32.A Depression Type: unspecified
[2022-11-28] MEDS: pantoprazole DR 40 mg Tablet PO (10:40)
[2022-11-28] MEDS: OLANZapine 5 mg ODT PO ×2 (11:47→19:32)
[2022-11-28] MEDS: calcium carbonate 500 mg Chew Tablet 1000 MG PO (13:22)
[2022-11-28] MEDS: acetaminophen 325 mg Tablet 650 MG PO (13:22)
[2022-11-28 14:00] VITALS: BP 110/64; PULSE 113; RESP 16; TEMP 36.9; O2SAT 97
[2022-11-28] MEDS: trazodone 50 mg Tablet PO ×2 (19:32→21:58)
[2022-11-28] MEDS: nicotine 2 mg Gum BUCCAL (19:47)
[2022-11-28 20:25] VITALS: BP 124/71; PULSE 106; RESP 17; TEMP 37.1; O2SAT 99
[2022-11-29] MEDS: nicotine 2 mg Gum BUCCAL (03:35)
[2022-11-29 06:00] VITALS: BP 115/71; PULSE 104; RESP 16; TEMP 36.9; O2SAT 97
[2022-11-29] MEDS: nicotine 21 mg Patch 1 PATCH TRANSDERMA (06:43)
[2022-11-29] MEDS: multivitamin therapeutic Tablet 1 TAB PO (09:09)
[2022-11-29] MEDS: divalproex DR 500 mg Tablet PO (09:09)
[2022-11-29] MEDS: folic acid 1 mg Tablet PO (09:09)
[2022-11-29] MEDS: pantoprazole DR 40 mg Tablet PO (09:09)
[2022-11-29] MEDS: thiamine 100 mg Tablet PO (09:09)
--- NOTE | 2022-11-29 09:25 | DCPLANNER ---
IMM was printed and was given and explained to pt and copy placed in file.
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
[2022-11-29] MEDS: acetaminophen 325 mg Tablet 650 MG PO (10:08)
[2022-11-29 10:10] VITALS: BP 115/71; PULSE 104; RESP 16; TEMP 36.9; O2SAT 97
== END 2022-11-29 13:03 | disposition home or self-care (01) | DRG 881 ==
LOC: ER 20:39 → NP 22:52
PROVIDERS: Admitting Provider Psychiatry & Neurology Psychiatry; Emergency Provider Emergency Medicine; PCP Family Medicine; Visit Provider Psychiatry & Neurology Psychiatry
DX: F32.A Depression, unspecified (principal); R45.851 Suicidal ideations; F10.229 Alcohol dependence with intoxication, unspecified; Y90.8 Blood alcohol level of 240 mg/100 ml or more; Z62.810 Personal history of physical and sexual abuse in childhood; Z81.8 Family history of other mental and behavioral disorders; Z81.4 Family history of other substance abuse and dependence; Z63.79 Other stressful life events affecting family and household
CPT/HCPCS: 36415; 80053; 80306; 80307; 81001; 81025; 83690; 83735; 85025; 96372; 97150; 97165; 99285; J1885; J3411; J3490; J7030; Q0162

== ENCOUNTER 2023-05-06 09:06 | Inpatient (IN) | payer MEDICARE, MEDICAID, SELFPAY ==
--- NOTE | 2023-05-06 09:14 | W.ED.ANIMALB ---
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 Performed by Dr. Grant for BABATUNDE 3 diagnosis. Gastric bypass status for obesity Family History Father Diabetes Stroke Heart disease Mother Hypertension Thyroid condition Brother Heart disease Denies family history of Colon cancer Ovarian cancer Breast cancer Uterine cancer Social History Smoking and tobacco/nicotine status: current every day tobacco/nicotine user cigarettes Packs smoked per day: 2 Substance/Drug Use: former Date of last use: Former cocaine use Discharge Plan Discharge Condition: Stable Prescriptions: No Action multivitamin Tablet 1 tab PO DAILY ferrous sulfate 325 mg (65 mg iron) tablet 325 mg PO DAILY ascorbate calcium (vitamin C) 500 mg tablet 500 mg PO DAILY trazodone 50 mg tablet 50 mg PO BEDTIME 30 Days Qty: 30 1RF Vitamin B-1 100 mg tablet 100 mg PO DAILY 30 Days Qty: 30 1RF omeprazole 20 mg capsule,delayed release(DR/EC) 20 mg PO DAILY Qty: 30 1RF levetiracetam [Keppra] 500 mg tablet 500 mg PO BID 30 Days Qty: 60 1RF gabapentin 100 mg capsule 100 mg PO TID Qty: 90 1RF cholecalciferol (vitamin D3) 50 mcg (2,000 unit) capsule 50 mcg PO DAILY Qty: 30 1RF estradiol 1 mg tablet See Rx Instructions .ROUTE .COMPLEX Qty: 30 0RF Dose Instruction: Take 1 tablet by mouth once daily Rx Instructions: Take 1 tablet by mouth once daily olanzapine [Zyprexa] 5 mg tablet 5 mg PO DAILY 30 Days Qty: 30 1RF zinc acetate 50 mg (zinc) Capsule 50 mg PO DAILY Vitamin B-12 1,000 mcg Tablet 1,000 mcg PO DAILY acetaminophen 500 mg Tablet 1,000 mg PO Q6H PRN (Reason: Pain) calcium carbonate 500 mg calcium (1,250 mg) Tablet 500 mg PO DAILY potassium gluconate 595 mg (99 mg) Tablet 595 mg PO DAILY omeprazole 20 mg capsule,delayed release(DR/EC) 20 mg PO DAILY divalproex 500 mg Tablet,Delayed Release (Dr/Ec) 500 mg PO BID 30 Days Qty: 60 1RF Referrals: Jed Luo MD [Primary Care Provider] - Coding Level of Care Code ED Parking Lot Manager for Elke Ortiz
[2023-05-06 09:18] VITALS: BP 129/65; PULSE 123; RESP 16; TEMP 36.7; O2SAT 96
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
[2023-05-06 09:54] LABS: Basophils # 0.1 10^3/uL (0.0-0.1); Basophils % 2.1 %; Eosinophils # 0.1 10^3/uL (0.0-0.8); Eosinophils % 1.9 %; Hematocrit 38.9 % (36-47); Lymphocytes # 1.9 10^3/uL (0.8-4.8); Lymphocytes % 39.5 %; Mean Corpuscular HGB Conc 32.6 g/dL (30-55); Mean Corpuscular Hemoglobin 30.9 pg (27-33); Mean Corpuscular Volume 94.6 fl (85-98); Mean Platelet Volume 10.1 fL (7.4-10.4); Monocytes # 0.4 10^3/uL (0.2-0.9); Monocytes % 8.8 %; Neutrophils # 2.32 10^3/uL (1.8-7.7); Neutrophils % 47.7 %; Nucleated Red Blood Cells % 0 %; Platelet Count 89 10^3/cmm (157-399); Red Blood Count 4.11 10^6/uL (3.85-5.65); Red Cell Distribution Width 14.1 % (12.1-15.1); White Blood Count 4.86 10^3/uL (3.29-11.43)
[2023-05-06 10:13] LABS: Alanine Aminotransferase 89 U/L (0-33); Albumin Level 4.3 g/dL (3.5-5.2); Alkaline Phosphatase 150 U/L (35-105); Anion Gap 15.6 (5-19); Aspartate Amino Transferase 288 U/L (0-32); Blood Urea Nitrogen 4 mg/dL (6-20); Calcium 9.3 mg/dL (8.5-10.5); Carbon Dioxide 26 mmol/L (22-29); Chloride 101 mmol/L (98-107); Globulin 4.4 g/dL (1.3-4.6); Glucose 104 mg/dL (65-115); Osmolality Calculated 285 mOsm/kg (285-295); Potassium 3.6 mmol/L (3.5-5.1); Sodium 139 mmol/L (136-145); Total Bilirubin 0.6 mg/dL (0.15-1.2); Total Protein 8.7 g/dL (6.6-8.7)
[2023-05-06 10:14] LABS: Acetaminophen < 5.0 ug/mL (10-30); Creatinine Clr Calc Pharmacy 170.5684; Salicylate < 0.3 mg/dL (3-10)
[2023-05-06 10:18] LABS: Alcohol Level 321 mg/dL (0-10)
--- NOTE | 2023-05-06 10:26 | PC.PHAR ---
PT STATES SHE TAKES CARE OF HER OWN MEDICATIONS-PT STATES SHE HASNT HAD HER MEDS IN A FEW DAYS SINCE HER SNAKE BITE HAPPENED-PT STATES SHE NO LONGER TAKES DIVALPROEX DR 500MG BID (RX SHOWS LAST FILLED 11/29/22 30D/S) OR ZYPREXA 5MG DAILY (EXT SHOWS LAST FILLLED 11/30/22 30D/S)
[2023-05-06 10:58] LABS: Amphetamines Screen Urine Negative (Negative); Barbiturates Screen Urine Negative (Negative); Benzodiazepines Screen Urine Negative (Negative); Cocaine Screen Urine Negative (Negative); Opiate Screen Urine Negative (Negative); PCP Screen Urine Negative (Negative); THC Screen Urine Negative (Negative)
[2023-05-06 12:09] VITALS: BP 134/87; PULSE 108; RESP 15; TEMP 36.5; O2SAT 96
[2023-05-06] MEDS: nicotine 21 mg Patch 1 PATCH TRANSDERMA (13:07)
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
[2023-05-06 14:00] VITALS: BP 118/74; PULSE 151; RESP 17; O2SAT 95
--- NOTE | 2023-05-06 14:52 | PC.NURSE ---
disposed of 1 can of alcohol, NPU system administration manager aware, witnessed by security
[2023-05-06] MEDS: acetaminophen 325 mg Tablet 650 MG PO ×2 (15:32→19:59)
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
[2023-05-06] MEDS: OLANZapine 5 mg ODT PO (17:22)
[2023-05-06] MEDS: trazodone 50 mg Tablet PO (19:59)
[2023-05-06] MEDS: gabapentin 100 mg Capsule PO (19:59)
[2023-05-06 21:00] VITALS: BP 108/58; PULSE 110; RESP 18; TEMP 37.2; O2SAT 96
[2023-05-07 06:00] VITALS: BP 109/57; PULSE 87; RESP 16; O2SAT 97
[2023-05-07] MEDS: cholecalciferol (vitamin D3) 1,000 unit Tablet 2000 UNIT PO (08:59)
[2023-05-07] MEDS: cyanocobalamin 1,000 mcg Tablet 1000 MCG PO (08:59)
[2023-05-07] MEDS: ferrous sulfate EC 325 mg Tablet PO (08:59)
[2023-05-07] MEDS: multivitamin therapeutic Tablet 1 TAB PO (08:59)
[2023-05-07] MEDS: ascorbic acid 500 mg Tablet PO (08:59)
[2023-05-07] MEDS: pantoprazole DR 40 mg Tablet PO (08:59)
[2023-05-07] MEDS: levETIRAcetam 500 mg Tablet PO ×2 (08:59→18:26)
[2023-05-07] MEDS: folic acid 1 mg Tablet PO (08:59)
[2023-05-07] MEDS: thiamine 100 mg Tablet PO (09:00)
[2023-05-07] MEDS: gabapentin 100 mg Capsule PO ×3 (09:00→20:15)
[2023-05-07] MEDS: estradiol 1 mg Tablet PO (09:00)
[2023-05-07] MEDS: acetaminophen 325 mg Tablet 650 MG PO (09:02)
[2023-05-07] MEDS: nicotine 21 mg Patch 1 PATCH TRANSDERMA (09:08)
[2023-05-07] MEDS: zinc gluconate 50 mg Tablet PO (12:14)
[2023-05-07 14:00] VITALS: BP 110/76; PULSE 78; RESP 16; TEMP 36.6; O2SAT 98
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
[2023-05-07 19:52] VITALS: BP 138/78; PULSE 102; RESP 17; TEMP 36.8; O2SAT 99
[2023-05-07] MEDS: trazodone 50 mg Tablet PO (20:15)
[2023-05-08 06:00] VITALS: BP 115/66; PULSE 92; RESP 17; TEMP 36.7; O2SAT 98
[2023-05-08] MEDS: multivitamin therapeutic Tablet 1 TAB PO (08:38)
[2023-05-08] MEDS: cyanocobalamin 1,000 mcg Tablet 1000 MCG PO (08:38)
[2023-05-08] MEDS: pantoprazole DR 40 mg Tablet PO (08:38)
[2023-05-08] MEDS: calcium carbonate 500 mg Chew Tablet PO (08:38)
[2023-05-08] MEDS: thiamine 100 mg Tablet PO (08:39)
[2023-05-08] MEDS: levETIRAcetam 500 mg Tablet PO ×2 (08:39→17:32)
[2023-05-08] MEDS: zinc gluconate 50 mg Tablet PO (08:39)
[2023-05-08] MEDS: ascorbic acid 500 mg Tablet PO (08:39)
[2023-05-08] MEDS: estradiol 1 mg Tablet PO (08:39)
[2023-05-08] MEDS: gabapentin 100 mg Capsule PO ×3 (08:39→20:18)
[2023-05-08] MEDS: folic acid 1 mg Tablet PO (08:39)
[2023-05-08] MEDS: ferrous sulfate EC 325 mg Tablet PO (08:39)
[2023-05-08] MEDS: acetaminophen 325 mg Tablet 650 MG PO ×3 (08:39→19:59)
[2023-05-08] MEDS: cholecalciferol (vitamin D3) 1,000 unit Tablet 2000 UNIT PO (08:39)
[2023-05-08] MEDS: nicotine 21 mg Patch 1 PATCH TRANSDERMA (08:43)
--- NOTE | 2023-05-08 09:19 | PC.NURSE ---
RESTING IN ROOM, AROUSES TO VOICE. DENIES SI/HI AND AVH AT THIS TIME. RATES ANXIETY AND DEPRESSION 0/10. PT IS WITHDRAWN TO ROOM AND IS OBSERVED TO ISOLATE AT TIMES. RATES PAIN 4/10 GENERALIZED. TYLENOL WAS GIVEN ORDERED,SEE MAR FOR DETAILS. ALL QUESTIONS WERE ANSWERED AND SUPORT WAS VOICED.
--- NOTE | 2023-05-08 13:52 | PC.NURSE ---
NEW ORDERS RECEIVED FROM DR. LOPEZ TO START VIVITROL 380 MG IM Q MONTH, WITH FIRST DOSE WHEN AVAILABLE FROM PHARMACY,.
--- NOTE | 2023-05-08 13:58 | PC.NURSE ---
VITRIOL INJECTIONS CALLED INTO [facility], THEY STATE THEY CAN HAVE IT HERE BY TOMORROW. PRESCRIPTION CALLED IN PER DR. LOPEZ WITH NO REFILLS.
[2023-05-08 14:00] VITALS: BP 104/63; PULSE 116; RESP 20; TEMP 36.9; O2SAT 95
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
[2023-05-08 20:01] VITALS: BP 114/64; PULSE 92; RESP 17; TEMP 37; O2SAT 98
[2023-05-08] MEDS: trazodone 50 mg Tablet PO (20:18)
--- NOTE | 2023-05-08 20:18 | PC.NURSE ---
Pt up in room. Pt currently denies SI/HI/AVH but endorses some anxiety/depression. Pt recieved PRN Tylenol for pain 5/10 in legs. No distress noted & current needs are met.
[2023-05-08] MEDS: haloperidol 5 mg Tablet PO (21:36)
--- NOTE | 2023-05-08 22:05 | PC.NURSE ---
Pt came up to nurses station w/ co high anxiety and not being able to sleep. Pt given PRN PO Haldol. Pt then returned to bed to lay down. Pt current needs are met.
[2023-05-09 06:00] VITALS: BP 165/79; PULSE 93; RESP 16; TEMP 36.6; O2SAT 99
[2023-05-09] MEDS: estradiol 1 mg Tablet PO (08:21)
[2023-05-09] MEDS: ferrous sulfate EC 325 mg Tablet PO (08:21)
[2023-05-09] MEDS: ascorbic acid 500 mg Tablet PO (08:21)
[2023-05-09] MEDS: folic acid 1 mg Tablet PO (08:21)
[2023-05-09] MEDS: gabapentin 100 mg Capsule PO ×3 (08:21→19:48)
[2023-05-09] MEDS: levETIRAcetam 500 mg Tablet PO ×2 (08:21→17:33)
[2023-05-09] MEDS: thiamine 100 mg Tablet PO (08:21)
[2023-05-09] MEDS: pantoprazole DR 40 mg Tablet PO (08:21)
[2023-05-09] MEDS: zinc gluconate 50 mg Tablet PO (08:21)
[2023-05-09] MEDS: cholecalciferol (vitamin D3) 1,000 unit Tablet 2000 UNIT PO (08:21)
[2023-05-09] MEDS: cyanocobalamin 1,000 mcg Tablet 1000 MCG PO (08:22)
[2023-05-09] MEDS: multivitamin therapeutic Tablet 1 TAB PO (08:22)
[2023-05-09] MEDS: calcium carbonate 500 mg Chew Tablet PO (08:23)
[2023-05-09] MEDS: acetaminophen 325 mg Tablet 650 MG PO (08:28)
[2023-05-09 13:00] LABS: HEP C RNA Viral Load Quant 2760000 IU/mL (NOT DETECTED); HEP C RNA Viral Load Quant 6.44 Log IU/mL (NOT DETECTED)
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
[2023-05-09 14:00] VITALS: BP 105/67; PULSE 78; RESP 16; TEMP 36.6; O2SAT 98
[2023-05-09] MEDS: NON-FORMULARY MEDICATION 380 EACH INJECTION (15:00)
--- NOTE | 2023-05-09 15:01 | PC.NURSE ---
VIVITOL 380 MG GIVEN IM TO LEFT GLUTEAL ORDERED. PT TOLERATED WELL.
[2023-05-09] MEDS: haloperidol 5 mg Tablet PO (19:46)
[2023-05-09] MEDS: trazodone 50 mg Tablet PO (19:48)
[2023-05-09 19:57] VITALS: BP 120/75; PULSE 70; RESP 16; TEMP 36.7; O2SAT 98
--- NOTE | 2023-05-09 20:52 | PC.NURSE ---
Pt currently denies SI/HI/AVH but endorses high anxiety and depression and states she might be on the verge of a panic attack. This nurse talked w/pt for a little bit and then pt returned to her room. Pt was given PRN Haldol for anxiety/agitation. Pt current needs are met & no distress noted.
[2023-05-10] MEDS: haloperidol 5 mg Tablet PO (03:23)
--- NOTE | 2023-05-10 06:20 | PC.NURSE ---
pt ref vs resp 18
[2023-05-10] MEDS: zinc gluconate 50 mg Tablet PO (08:32)
[2023-05-10] MEDS: calcium carbonate 500 mg Chew Tablet PO (08:33)
[2023-05-10] MEDS: pantoprazole DR 40 mg Tablet PO (08:33)
[2023-05-10] MEDS: multivitamin therapeutic Tablet 1 TAB PO (08:33)
[2023-05-10] MEDS: levETIRAcetam 500 mg Tablet PO ×2 (08:33→17:51)
[2023-05-10] MEDS: ascorbic acid 500 mg Tablet PO (08:33)
[2023-05-10] MEDS: ferrous sulfate EC 325 mg Tablet PO (08:33)
[2023-05-10] MEDS: cyanocobalamin 1,000 mcg Tablet 1000 MCG PO (08:33)
[2023-05-10] MEDS: thiamine 100 mg Tablet PO (08:33)
[2023-05-10] MEDS: gabapentin 100 mg Capsule PO ×3 (08:33→20:10)
[2023-05-10] MEDS: estradiol 1 mg Tablet PO (08:33)
[2023-05-10] MEDS: folic acid 1 mg Tablet PO (08:33)
[2023-05-10] MEDS: cholecalciferol (vitamin D3) 1,000 unit Tablet 2000 UNIT PO (10:07)
[2023-05-10] MEDS: nicotine 2 mg Gum BUCCAL (12:24)
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
[2023-05-10 14:00] VITALS: BP 125/70; PULSE 88; RESP 16; TEMP 37.1; O2SAT 98
[2023-05-10] MEDS: OLANZapine 5 mg ODT PO (15:52)
--- NOTE | 2023-05-10 19:49 | PC.NURSE ---
Pt currently denies SI/HI/AVH but endorses anxiety but states she is excited about discharge soon. All pt needs are met at this time & no distress noted.
[2023-05-10 20:04] VITALS: BP 112/75; PULSE 89; RESP 16; TEMP 36.7; O2SAT 99
[2023-05-10] MEDS: trazodone 50 mg Tablet PO (20:10)
[2023-05-11 06:00] VITALS: BP 98/53; PULSE 71; RESP 16; O2SAT 98
[2023-05-11] MEDS: nicotine 21 mg Patch 1 PATCH TRANSDERMA (06:24)
[2023-05-11] MEDS: cholecalciferol (vitamin D3) 1,000 unit Tablet 2000 UNIT PO (08:23)
[2023-05-11] MEDS: zinc gluconate 50 mg Tablet PO (08:24)
[2023-05-11] MEDS: folic acid 1 mg Tablet PO (08:24)
[2023-05-11] MEDS: estradiol 1 mg Tablet PO (08:24)
[2023-05-11] MEDS: gabapentin 100 mg Capsule PO ×3 (08:24→20:55)
[2023-05-11] MEDS: levETIRAcetam 500 mg Tablet PO ×2 (08:24→18:06)
[2023-05-11] MEDS: ferrous sulfate EC 325 mg Tablet PO (08:24)
[2023-05-11] MEDS: calcium carbonate 500 mg Chew Tablet PO (08:24)
[2023-05-11] MEDS: multivitamin therapeutic Tablet 1 TAB PO (08:24)
[2023-05-11] MEDS: cyanocobalamin 1,000 mcg Tablet 1000 MCG PO (08:25)
[2023-05-11] MEDS: pantoprazole DR 40 mg Tablet PO (08:25)
[2023-05-11] MEDS: ascorbic acid 500 mg Tablet PO (08:25)
[2023-05-11] MEDS: thiamine 100 mg Tablet PO (08:25)
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
[2023-05-11 14:00] VITALS: BP 108/71; PULSE 79; RESP 16; TEMP 36.8; O2SAT 96
[2023-05-11] MEDS: magnesium hydroxide 30 mL UDC PO (16:31)
[2023-05-11 19:44] VITALS: BP 109/69; PULSE 89; RESP 18; TEMP 36.5; O2SAT 100
[2023-05-11] MEDS: trazodone 50 mg Tablet PO (20:55)
[2023-05-11] MEDS: haloperidol 5 mg Tablet PO (22:36)
[2023-05-12 06:00] VITALS: BP 108/70; PULSE 75; RESP 16; TEMP 36.6; O2SAT 98
[2023-05-12] MEDS: gabapentin 100 mg Capsule PO ×3 (08:38→20:03)
[2023-05-12] MEDS: folic acid 1 mg Tablet PO (08:38)
[2023-05-12] MEDS: ascorbic acid 500 mg Tablet PO (08:38)
[2023-05-12] MEDS: levETIRAcetam 500 mg Tablet PO ×2 (08:38→18:03)
[2023-05-12] MEDS: ferrous sulfate EC 325 mg Tablet PO (08:38)
[2023-05-12] MEDS: zinc gluconate 50 mg Tablet PO (08:38)
[2023-05-12] MEDS: thiamine 100 mg Tablet PO (08:38)
[2023-05-12] MEDS: cholecalciferol (vitamin D3) 1,000 unit Tablet 2000 UNIT PO (08:38)
[2023-05-12] MEDS: estradiol 1 mg Tablet PO (08:38)
[2023-05-12] MEDS: cyanocobalamin 1,000 mcg Tablet 1000 MCG PO (08:38)
[2023-05-12] MEDS: pantoprazole DR 40 mg Tablet PO (08:38)
[2023-05-12] MEDS: multivitamin therapeutic Tablet 1 TAB PO (08:38)
[2023-05-12] MEDS: calcium carbonate 500 mg Chew Tablet PO ×2 (08:38→18:32)
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
[2023-05-12 14:00] VITALS: BP 109/66; PULSE 109; RESP 16; TEMP 36.6; O2SAT 97
[2023-05-12] MEDS: trolamine salicylate 10% 141 gm Cream 1 APPLIC TOPICAL (16:06)
[2023-05-12] MEDS: OLANZapine 5 mg ODT PO (16:07)
--- NOTE | 2023-05-12 17:25 | PC.NURSE ---
went to room, she stated that off and on today she heard music palying so at this time pt laying on her bed with this shirt closer and a demand planning manager in room with door slightly ajared unable to hear music playing.let pt know next time she heard any unusal sounds to please let us know so we can come in there to check.
--- NOTE | 2023-05-12 18:35 | PC.NURSE ---
changed pt to room 128 bed 1, pt still stating hearing music in her room attempts to dissuade her of this was not successful.
[2023-05-12] MEDS: LORazepam 2 mg Tablet PO (20:03)
[2023-05-12] MEDS: trazodone 50 mg Tablet PO (20:03)
[2023-05-12 20:09] VITALS: BP 106/67; PULSE 89; RESP 17; TEMP 36.8; O2SAT 99
[2023-05-13 06:00] VITALS: RESP 16
[2023-05-13] MEDS: thiamine 100 mg Tablet PO (08:51)
[2023-05-13] MEDS: levETIRAcetam 500 mg Tablet PO ×2 (08:51→18:03)
[2023-05-13] MEDS: cyanocobalamin 1,000 mcg Tablet 1000 MCG PO (08:51)
[2023-05-13] MEDS: cholecalciferol (vitamin D3) 1,000 unit Tablet 2000 UNIT PO (08:51)
[2023-05-13] MEDS: estradiol 1 mg Tablet PO (08:51)
[2023-05-13] MEDS: pantoprazole DR 40 mg Tablet PO (08:51)
[2023-05-13] MEDS: ferrous sulfate EC 325 mg Tablet PO (08:51)
[2023-05-13] MEDS: folic acid 1 mg Tablet PO (08:51)
[2023-05-13] MEDS: gabapentin 100 mg Capsule PO ×3 (08:51→19:53)
[2023-05-13] MEDS: multivitamin therapeutic Tablet 1 TAB PO (08:51)
[2023-05-13] MEDS: zinc gluconate 50 mg Tablet PO (08:51)
[2023-05-13] MEDS: ascorbic acid 500 mg Tablet PO (08:52)
--- NOTE | 2023-05-13 11:03 | PC.NURSE ---
PT TUMS ORDERED CHANGED TO PRN PER PT REQUEST. NEW ORDERS RECEIVED TO GIVE CALICIUM CARBONATE 500 MG PO DAILY WAS CHANGED TO PRN. PT EDUCATED AND VERBALIZED UNDERSTANDING.
[2023-05-13 14:00] VITALS: BP 108/69; PULSE 80; RESP 16; TEMP 36.7; O2SAT 99
[2023-05-13] MEDS: trolamine salicylate 10% 141 gm Cream 1 APPLIC TOPICAL ×2 (15:17→23:49)
--- NOTE | 2023-05-13 15:48 | W.PM.NPUPNS ---
Subjective NPU Subjective: Patient presented today reporting that she is doing better but hoping to optimize her sleep. She reports that she is getting things in place so that she can go directly to rehab on for as long as that might be. We discussed the risks, benefits and alternatives of increasing her trazodone to 100 mg p.o. nightly and she understood and agreed to proceed as is documented in this note. She continues to focus on her sobriety and the opportunity that having the rehab bed date sooner presents. She denied any side effects to the medication. Mental Status Exam MSE Comments: This is a slender white female in hospital scrubs with adequate grooming and eye contact. No abnormal involuntary motor movements appreciated except for mild psychomotor retardation. She was cooperative with exam in no acute distress. Speech was normal in rate and volume and no slurring of speech noted. Mood described as pretty good, affect is brighter. Thought process was linear and logical today. Thought content: patient denies any suicidal or homicidal ideation, no delusions reported or noted. Attention and concentration are intact and memory is reliable but none were formally tested. She is alert and oriented to person and place and time today. Insight and judgment are limited, but improving. Impulse control is limited, but improving. Vitals/I&O/Wt Last Vital Signs Temp 98.0 F 05/13/23 14:00 Pulse 80 05/13/23 14:00 Resp 16 05/13/23 14:00 BP 108/69 05/13/23 14:00 Pulse Ox 99 05/13/23 14:00 O2 Del Method Room Air 05/12/23 20:09 Weight last 48 hrs Weight 67.222 kg Data NPU 05/06/23 09:40 05/06/23 09:40 A&P Assessment and plan (1) Alcohol use disorder, severe, dependence: (2) Hallucinations: (3) Methamphetamine abuse: (4) Depression: Qualifiers: Depression Type: unspecified Qualified Code(s): F32.A - Depression, unspecified (5) Homicidal ideation: Plan This is a 52 year old white female with a long history of alcohol addiction and significant life disruption secondary to alcohol use currently admitted with homicidal threats and bizarre thinking with a blood alcohol level of 313. 1. Vivitrol given today 05/09/23 to target alcohol abuse. 2. Encourage individual, group and milieu therapy 3. Continue q-15 minute check for safety 4. Recommend sober living treatment at the highest level of care to which the patient is willing to commit. 5. [facility]WI protocol. -Patient remains in withdrawal at this time. Check PCR RNA quantitative HepC results pending. Patient has elevated AST/ALT/alkaline phosphatase. 6. Consider options for hepatitis treatment sooner rather than later. 7. Plan to discharge to rehab morning. Involuntary Hold Information 96 Hour Hold: 96 Hour Involuntary Admission: No Attestations NPU Medical Necessity Statement*: Inpatient hospitalization is medically necessary and the clinically appropriate intervention at this time. We will monitor medications and make changes as indicated. The patient's likely length of stay is 3 days. Coding Level of Care Code Acute Code for [facility] Fwd Diagnoses Alcohol use disorder, severe, dependence F10.20 Hallucinations R44.3 Methamphetamine abuse F15.10 Depression F32.A Depression Type: unspecified Homicidal ideation R45.850
[2023-05-13] MEDS: calcium carbonate 500 mg Chew Tablet PO (16:45)
[2023-05-13 19:25] VITALS: BP 135/75; PULSE 90; RESP 18; TEMP 36.7; O2SAT 99
[2023-05-13] MEDS: trazodone 100 mg Tablet PO (19:53)
[2023-05-13] MEDS: magnesium hydroxide 30 mL UDC PO (21:31)
[2023-05-13] MEDS: trazodone 50 mg Tablet PO (23:35)
[2023-05-14] VITALS: BP 103/69; PULSE 79; RESP 18; TEMP 36.7; O2SAT 98
[2023-05-14] MEDS: OLANZapine 5 mg ODT PO ×2 (01:57→17:11)
[2023-05-14] MEDS: trazodone 50 mg Tablet PO (01:57)
--- NOTE | 2023-05-14 02:04 | PC.NURSE ---
At approximately 0145, patient came up to desk wanting to check out AMA. Patient was reminded what time it was (0145) and that only the Doctor is allowed to release her. Patient was told she would be able to talk to Dr Paniagua when he gets into the unit later this am. Patient stated, I've been here since Saturday last week and I want to go home. I'm tired of not having anything to do. It is my right to leave when I want too. I'm my own guardian, I'm not on probation or on parole. I have my own home, it's a beautiful home. If I can't leave, I'll take all of you to court and I'll hector this place and all of you. Patient was increasing in volume with each statement. Security was called to help with de-escalations, and after talking with the patient, the patient asked if there was any medication she could have to help calm her down. Patient was given another Trazodone 50mg (for a total of 200mg this night), and Zyprexa Zydis 5mg. Patient took medications without difficulty then wrote a statement requesting a copy of all her medical records.
[2023-05-14 04:00] VITALS: BP 106/56; PULSE 94; RESP 18; TEMP 36.6; O2SAT 99
--- NOTE | 2023-05-14 06:33 | PC.NURSE ---
Patient has not slept at all this night.Patient has been up to nurses desk, back to room, to dayroom and back to desk, the to room. Patient has been much calmer since zyprexa given at 0200.
[2023-05-14 08:00] VITALS: BP 106/78
[2023-05-14] MEDS: cholecalciferol (vitamin D3) 1,000 unit Tablet 2000 UNIT PO (08:12)
[2023-05-14] MEDS: ascorbic acid 500 mg Tablet PO (08:12)
[2023-05-14] MEDS: levETIRAcetam 500 mg Tablet PO ×2 (08:12→18:25)
[2023-05-14] MEDS: ferrous sulfate EC 325 mg Tablet PO (08:12)
[2023-05-14] MEDS: thiamine 100 mg Tablet PO (08:12)
[2023-05-14] MEDS: cyanocobalamin 1,000 mcg Tablet 1000 MCG PO (08:12)
[2023-05-14] MEDS: zinc gluconate 50 mg Tablet PO (08:12)
[2023-05-14] MEDS: multivitamin therapeutic Tablet 1 TAB PO (08:12)
[2023-05-14] MEDS: pantoprazole DR 40 mg Tablet PO (08:12)
[2023-05-14] MEDS: folic acid 1 mg Tablet PO (08:12)
[2023-05-14] MEDS: polyethylene glycol 3350 Pkt 17 gm PO (08:12)
[2023-05-14] MEDS: estradiol 1 mg Tablet PO (08:12)
[2023-05-14] MEDS: gabapentin 100 mg Capsule PO ×3 (08:12→19:47)
[2023-05-14] MEDS: nicotine 21 mg Patch 1 PATCH TRANSDERMA (09:40)
[2023-05-14 12:00] VITALS: BP 116/76; PULSE 91; RESP 16; TEMP 36.4; O2SAT 99
--- NOTE | 2023-05-14 15:42 | W.PM.NPUPNS ---
Subjective NPU Subjective: Patient presented today reporting that she is doing fine. She continues to have moments of tiredness or reporting things that seem strange. She went from being totally comfortable and fixated on going to rehab on to having resistance and trying everything in her power to be discharged earlier. At 1 point she brought her meal up and spit it out and suggested that were maggots in it and that she needed to get out to get safer food. We discussed possibility of vet tomorrow with reports she might have someone who would be able to give her a ride to the rehab and reportedly help her avoid relapsing prior. She denied side effects to her medications. Mental Status Exam MSE Comments: This is a slender white female in hospital scrubs with adequate grooming and eye contact. No abnormal involuntary motor movements appreciated except for mild psychomotor retardation. She was cooperative with exam in no acute distress. Speech was normal in rate and volume and no slurring of speech noted. Mood described as pretty good, affect is brighter. Thought process was linear and logical today. Thought content: patient denies any suicidal or homicidal ideation, no delusions reported or noted. Attention and concentration are intact and memory is reliable but none were formally tested. She is alert and oriented to person and place and time today. Insight and judgment are limited, but improving. Impulse control is limited, but improving. Vitals/I&O/Wt Last Vital Signs Temp 97.6 F 05/14/23 12:00 Pulse 91 05/14/23 12:00 Resp 16 05/14/23 12:00 BP 116/76 05/14/23 12:00 Pulse Ox 99 05/14/23 12:00 O2 Del Method Room Air 05/14/23 12:00 Data NPU 05/06/23 09:40 05/06/23 09:40 A&P Assessment and plan (1) Alcohol use disorder, severe, dependence: (2) Hallucinations: (3) Methamphetamine abuse: (4) Depression: Qualifiers: Depression Type: unspecified Qualified Code(s): F32.A - Depression, unspecified (5) Homicidal ideation: Plan This is a 52 year old white female with a long history of alcohol addiction and significant life disruption secondary to alcohol use currently admitted with homicidal threats and bizarre thinking with a blood alcohol level of 313. 1. Vivitrol given today 05/09/23 to target alcohol abuse. 2. Encourage individual, group and milieu therapy 3. Continue q-15 minute check for safety 4. Recommend sober living treatment at the highest level of care to which the patient is willing to commit. 5. [facility] protocol. -Patient remains in withdrawal at this time. Check PCR RNA quantitative HepC results pending. Patient has elevated AST/ALT/alkaline phosphatase. 6. Consider options for hepatitis treatment sooner rather than later. 7. Plan to discharge to rehab . Involuntary Hold Information 96 Hour Hold: 96 Hour Involuntary Admission: No Attestations NPU Medical Necessity Statement*: Inpatient hospitalization is medically necessary and the clinically appropriate intervention at this time. We will monitor medications and make changes as indicated. The patient's likely length of stay is 2 days. Coding Level of Care Code Acute Code for [facility] Fwd Diagnoses Alcohol use disorder, severe, dependence F10.20 Hallucinations R44.3 Methamphetamine abuse F15.10 Depression F32.A Depression Type: unspecified Homicidal ideation R45.850
[2023-05-14 16:50] VITALS: BP 106/56; PULSE 94; RESP 16; O2SAT 99
[2023-05-14] MEDS: calcium carbonate 500 mg Chew Tablet PO (18:09)
--- NOTE | 2023-05-14 18:33 | PC.NURSE ---
PT BROUGHT THIS NURSE HER TRAY TO THE NURSES STATION STATING THAT HER FOOD HAD MAGGOTS IN HER MEAL. PT HAD SPIT CHEWED FOOD ONTO A NAPKIN AND POINTED OUT TO THIS NURSE THE OUTLINES OF THE MAGGOTS. PT STATED TO THIS NURSE THAT SHE FELT LIKE SHE HAD MAGGOTS IN HER TEETH. THIS NURSE AND JAMES MON TOOK HER TRAY AND SIFTED THROUGH THE TRY TO ENSURE THAT THERE WERE NOT MAGGOTS IN HER MEAL. THIS NURSE ALONG WITH JAMES ROGERS DID NOT FIND ANY MAGGOTS OR OTHER INSECTS.
[2023-05-14] MEDS: magnesium hydroxide 30 mL UDC PO (19:47)
[2023-05-14] MEDS: trazodone 100 mg Tablet PO (19:47)
[2023-05-14 19:54] VITALS: BP 113/80; PULSE 99; RESP 16; TEMP 36.6; O2SAT 100
--- NOTE | 2023-05-14 21:44 | PC.NURSE ---
AT APPROXIMATELY 2130, PATIENT CAME TO NURSES DESK REQUESTING SOME TOWELS SO SHE COULD SIT IN THE HOT SHOWER AND SOAK HER LEGS. PATIENT STATES SHE HAS RESTLESS LEG SYNDROME REAL BAD, AND IT'S ACTING UP. PATIENT WAS GIVEN SHOWER SUPPLIES REQUESTED WELL A SHOWER CHAIR, AND ALLOWED TO SIT IN THE SHOWER. THIS NURSE OFFER IBUPROFEN FOR PAIN, BUT PATIENT REFUSED DUE TO I'VE HAD GASTRIC BYPASS SURGERY AND CAN'T TAKE ANY ANTIINFLAMMATORIES. THIS NURSE APOLOGIZED, AND PATIENT WAS ADVISED THIS NURSE WAS UNAWARE OF HER SURGERY HISTORY, BUT WAS ONLY TRYING TO HELP RELIEVE HER PAIN. PATIENT MADE A PHONE CALL AND ARGUED WITH PERSON SHE CALLED. MR PULIDO THE CALLED AND TALKED WITH THIS NURSE AND TOLD THIS NURSE THAT PATIENT DOES TAKE AN OVER THE COUNTER MEDICATION CALLED RESTLESS LEG FROM [facility]. MR PULIDO ASKED, IF IT IS POSSIBLE TO HAVE SOMEONE BRING THE MED IN, FOR HER TO BE ABLE TO TAKE IT. MR PULIDO WAS ADVISED THAT THE MEDICATION HAS TO BE APPROVED BY THE DOCTOR, AND IF HE APPROVES IT, THEN YES, THE PATIENT WOULD BE ABLE TO TAKE SAID MED. PATIENT STATED SHE WAS OK WITH THAT.
--- NOTE | 2023-05-14 22:22 | PC.NURSE ---
[facility] Copy of [facility] was served to pt by this RN and Security. Pt presented with manic affect during reading of [facility] rights form. Pt stated she understood what was being stated to her. Pt requesting home medication for RLS. Pt was offered PRN medication to help sleep and treat agitation, pt agreed to take PRN shot. Update was called to pt family member by request of pt. Home medication brought in by said family member and given to NPU staff.
[2023-05-14] MEDS: haloperidol inj 5 mg/mL INJ 1 mL IM (22:53)
[2023-05-14] MEDS: LORazepam 2 mg/mL INJ 1 mL IM (22:54)
--- NOTE | 2023-05-15 06:32 | PC.NURSE ---
resp documented per nurse
[2023-05-15] MEDS: zinc gluconate 50 mg Tablet PO (10:03)
[2023-05-15] MEDS: pantoprazole DR 40 mg Tablet PO (10:03)
[2023-05-15] MEDS: folic acid 1 mg Tablet PO (10:03)
[2023-05-15] MEDS: thiamine 100 mg Tablet PO (10:03)
[2023-05-15] MEDS: gabapentin 100 mg Capsule PO ×3 (10:04→23:51)
[2023-05-15] MEDS: cholecalciferol (vitamin D3) 1,000 unit Tablet 2000 UNIT PO (10:04)
[2023-05-15] MEDS: levETIRAcetam 500 mg Tablet PO ×2 (10:04→17:10)
[2023-05-15] MEDS: estradiol 1 mg Tablet PO (10:04)
[2023-05-15] MEDS: cyanocobalamin 1,000 mcg Tablet 1000 MCG PO (10:04)
[2023-05-15] MEDS: multivitamin therapeutic Tablet 1 TAB PO (10:04)
[2023-05-15] MEDS: ferrous sulfate EC 325 mg Tablet PO (10:04)
[2023-05-15] MEDS: ascorbic acid 500 mg Tablet PO (10:05)
[2023-05-15] MEDS: nicotine 21 mg Patch 1 PATCH TRANSDERMA (10:05)
--- NOTE | 2023-05-15 11:27 | P.NPUPN_ITS ---
Subjective NPU 2 Subjective: Patient presented today reporting that she is feeling better each day. She reported being sorry about her recent outbursts in the evening having gotten a combination of as needed medications IM last night. She reports she feels better today and does not know that there is a profound need for her to go to rehab and she was thankful for us having a plan of letting her friend take her to rehab tomorrow. She denies any issues with the medication, denies any side effects and looks forward to leaving. Mental Status Exam 2 MSE Comments: This is a slender white female in hospital scrubs with adequate grooming and eye contact. No abnormal involuntary motor movements appreciated except for mild psychomotor retardation. She was cooperative with exam in no acute distress. Speech was normal in rate and volume and no slurring of speech noted. Mood described as pretty good, affect is brighter. Thought process was linear and logical today. Thought content: patient denies any suicidal or homicidal ideation, no delusions reported or noted. Attention and concentration are intact and memory is reliable but none were formally tested. She is alert and oriented to person and place and time today. Insight and judgment are limited, but improving. Impulse control is limited, but improving. Vitals/I&O/Wt Last Vital Signs Temp 97.9 F 05/14/23 19:54 Pulse 99 05/14/23 19:54 Resp 16 05/14/23 19:54 BP 113/80 05/14/23 19:54 Pulse Ox 100 05/14/23 19:54 O2 Del Method Room Air 05/14/23 19:54 Data NPU 05/06/23 09:40 05/06/23 09:40 A&P Assessment and plan (1) Alcohol use disorder, severe, dependence: (2) Hallucinations: (3) Methamphetamine abuse: (4) Depression: Qualifiers: Depression Type: unspecified Qualified Code(s): F32.A - Depression, unspecified (5) Homicidal ideation: Plan This is a 52 year old white female with a long history of alcohol addiction and significant life disruption secondary to alcohol use currently admitted with homicidal threats and bizarre thinking with a blood alcohol level of 313. 1. Vivitrol given 05/09/23 to target alcohol abuse. 2. Encourage individual, group and milieu therapy 3. Continue q-15 minute check for safety 4. Recommend sober living treatment at the highest level of care to which the patient is willing to commit. 5. Discontinue CIWA. Patient has elevated AST/ALT/alkaline phosphatase. 6. Will refer for outpatient hepatitis C treatment. 7. Plan to discharge to rehab tomorrow morning. Involuntary Hold Information 2 96 Hour Hold: 96 Hour Involuntary Admission: No Attestations NPU 2 Medical Necessity Statement*: Inpatient hospitalization is medically necessary and the clinically appropriate intervention at this time. We will monitor medications and make changes as indicated. The patient's likely length of stay is 1 day. Coding Level of Care Code Acute Code for [facility] Fwd Diagnoses Alcohol use disorder, severe, dependence F10.20 Hallucinations R44.3 Methamphetamine abuse F15.10 Depression F32.A Depression Type: unspecified Homicidal ideation R45.850
[2023-05-15 14:00] VITALS: BP 100/64; PULSE 93; RESP 16; TEMP 36.5; O2SAT 97
[2023-05-15 20:04] VITALS: BP 137/75; PULSE 102; RESP 16; O2SAT 98
[2023-05-15] MEDS: trazodone 100 mg Tablet PO (21:48)
[2023-05-15] MEDS: trolamine salicylate 10% 141 gm Cream 1 APPLIC TOPICAL (23:33)
[2023-05-16] MEDS: alum-mag-hydroxide-sime 30 mL UDC PO (00:03)
[2023-05-16 06:00] VITALS: BP 118/76; PULSE 73; RESP 18; TEMP 36.7; O2SAT 99
[2023-05-16] MEDS: thiamine 100 mg Tablet PO (07:30)
[2023-05-16] MEDS: cholecalciferol (vitamin D3) 1,000 unit Tablet 2000 UNIT PO (07:30)
[2023-05-16] MEDS: levETIRAcetam 500 mg Tablet PO (07:31)
[2023-05-16] MEDS: zinc gluconate 50 mg Tablet PO (07:31)
[2023-05-16] MEDS: ferrous sulfate EC 325 mg Tablet PO (07:31)
[2023-05-16] MEDS: cyanocobalamin 1,000 mcg Tablet 1000 MCG PO (07:31)
[2023-05-16] MEDS: multivitamin therapeutic Tablet 1 TAB PO (07:31)
[2023-05-16] MEDS: pantoprazole DR 40 mg Tablet PO (07:31)
[2023-05-16] MEDS: folic acid 1 mg Tablet PO (07:32)
[2023-05-16] MEDS: estradiol 1 mg Tablet PO (07:32)
[2023-05-16] MEDS: ascorbic acid 500 mg Tablet PO (07:32)
[2023-05-16] MEDS: gabapentin 100 mg Capsule PO (07:33)
[2023-05-16] MEDS: calcium carbonate 500 mg Chew Tablet PO (07:37)
--- NOTE | 2023-05-16 08:25 | DCPLANNER ---
[place] completed on 05/16/23 @ 7422. Pt was given a copy of her rights and she stated she understood her rights.
[2023-05-16 08:37] VITALS: BP 118/76; PULSE 73; RESP 18; TEMP 36.7; O2SAT 99
--- NOTE | 2023-05-16 08:51 | P.NPUDS_ITS ---
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 than 30 min Specific Discharge Activities: Specific discharge activities: educating patient, discussing with employment evaluator/case manager/social workers/dc planners, documenting/ other paperwork and evaluating patient/reviewing data Coding Level of Care Code Acute Code for Chg Fwd Diagnoses Alcohol use disorder, severe, dependence F10.20 Hallucinations R44.3 Methamphetamine abuse F15.10 Depression F32.A Depression Type: unspecified Homicidal ideation R45.850
== END 2023-05-16 09:15 | DRG 897 ==
LOC: ER 09:14 → NP 10:40
PROVIDERS: Admitting Provider Psychiatry & Neurology Psychiatry; Emergency Provider Physician Assistant; PCP Family Medicine; Visit Provider Psychiatry & Neurology Psychiatry
DX: F10.221 Alcohol dependence with intoxication delirium (principal); Y90.8 Blood alcohol level of 240 mg/100 ml or more; B19.20 Unspecified viral hepatitis C without hepatic coma; Z98.84 Bariatric surgery status; E53.8 Deficiency of other specified B group vitamins; E61.1 Iron deficiency; F17.210 Nicotine dependence, cigarettes, uncomplicated
CPT/HCPCS: 36415; 80053; 80306; 80307; 85025; 87522; 96372; 97150; 97165; 99285; J1630; J2060; J8499

== ENCOUNTER → 2023-05-22 13:55 | Outpatient (BNVA) | payer MEDICARE, MEDICAID, SELFPAY | PROVIDERS: PCP Family Medicine; Visit Provider Clinical Nurse Specialist Adult Health | DX: R30.0 Dysuria (principal) | CPT/HCPCS: 81000 ==

== ENCOUNTER → 2023-06-10 14:28 | Outpatient (BNVA) | payer MEDICARE, OTHER, SELFPAY | PROVIDERS: PCP Family Medicine; Visit Provider Family Medicine | DX: B19.20 Unspecified viral hepatitis C without hepatic coma (principal) | CPT/HCPCS: 80053; 85025; 85610; 86705; 86706; 87340; 87491; 87522; 87591; 87806; 87902 ==

== ENCOUNTER 2023-06-21 12:57 | Outpatient (CLI) | payer MEDICARE, MEDICAID, SELFPAY ==
--- NOTE | 2023-06-21 13:10 | USR_ITS ---
PROCEDURE INFORMATION: Exam: US Abdomen; Limited Exam date and time: 06/21/2023 1:29 PM Age: 52 years old Clinical indication: Condition or disease; Liver condition; Hepatitis; Other: C not specified; Additional info: Hep c TECHNIQUE: Imaging protocol: Real time ultrasound of the abdomen with image documentation. Limited exam focused on the region of clinical interest. COMPARISON: CT abdomen pelvis wo con [id number] 04/08/2022 5:09 PM FINDINGS: Liver: Measures approximately 16.9 cm length Slightly increased echogenicity and coarsened echotexture. Gallbladder: Cholecystectomy. Biliary ducts: Common duct measures approximately 7 mm likely secondary to reservoir effect. Aorta: Nonaneurysmal. Inferior vena cava: No acute findings. US/US liver [id number] IMPRESSION: Hepatic steatosis/steatohepatitis.
== END 2023-06-21 12:58 | disposition home or self-care (01) ==
LOC: RAD 12:59
PROVIDERS: PCP Family Medicine; Visit Provider Family Medicine
DX: B19.20 Unspecified viral hepatitis C without hepatic coma (principal); K76.0 Fatty (change of) liver, not elsewhere classified
CPT/HCPCS: 76705

== ENCOUNTER 2023-07-29 12:55 | Outpatient (CLI) | payer MEDICARE, SELFPAY ==
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
== END 2023-07-29 12:56 | disposition home or self-care (01) ==
PROVIDERS: PCP Family Medicine; Visit Provider Family Medicine
DX: R68.84 Jaw pain (principal)
CPT/HCPCS: 70110

== ENCOUNTER → 2023-08-09 10:36 | Outpatient (BNVA) | payer MEDICARE, SELFPAY | PROVIDERS: PCP Family Medicine; Visit Provider Nurse Practitioner Family | DX: D37.01 Neoplasm of uncertain behavior of lip (principal); R22.41 Localized swelling, mass and lump, right lower limb; D22.5 Melanocytic nevi of trunk; R23.1 Pallor | CPT/HCPCS: 40490; 99203 ==

== ENCOUNTER → 2023-09-26 10:30 | Outpatient (BNVA) | payer MEDICARE, MEDICAID, SELFPAY | PROVIDERS: PCP Family Medicine; Visit Provider Specialist | DX: R56.9 Unspecified convulsions (principal) | CPT/HCPCS: 95816 ==

== ENCOUNTER 2023-10-01 16:37 | Emergency (ER) | payer MEDICARE, MEDICAID, SELFPAY ==
[2023-10-01 16:42] VITALS: BP 105/66; PULSE 74; RESP 16; TEMP 37; O2SAT 98; BMI 19.9
--- NOTE | 2023-10-01 16:46 | W.ED.SKABFB ---
HPI - Skin/Abscess/Foreign Bdy General: Chief complaint: Skin/Abscess/Foreign Body Stated complaint: all over rash Time Seen by Provider: 10/01/23 16:46 Source: patient Mode of arrival: ambulatory Limitations: no limitations History of Present Illness: Patient is a 53-year-old female presents to ED today with a complaint of possible insect bite/rash. She states she began noticing spots to her legs approximately 2 days ago. She states they are incredibly pruritic. She states she did recently buy a new mattress protector from a secondhand store and wonders if she has bedbugs. She has no systemic symptoms. She arrives with stable vital signs. MD complaint: rash Onset (ago): day(s) Tetanus up to date: yes Location: back, LUE, RUE, LLE and RLE Severity: moderate Quality: pruritic Relieving factors: none Exacerbating factors: none Associated symptoms: Reports no associated symptoms; Deny chills, fever(s), nausea or vomiting Treatments prior to arrival: OTC topical medication and Benadryl Related Data Home Medications Medication Instructions Recorded Confirmed ascorbate calcium (vitamin C) 500 500 mg PO DAILY 05/16/22 09/26/23 mg tablet ferrous sulfate 325 mg (65 mg 325 mg PO DAILY 05/16/22 09/26/23 iron) tablet multivitamin 1 tab PO DAILY 05/16/22 09/26/23 acetaminophen 500 mg tablet 1,000 mg PO Q6H PRN Pain 11/25/22 09/26/23 calcium carbonate 500 mg PO DAILY 11/25/22 09/26/23 cyanocobalamin (vitamin B-12) 1,000 mcg PO DAILY 11/25/22 09/26/23 1,000 mcg tablet (Vitamin B-12) potassium gluconate 595 mg (99 mg) 595 mg PO DAILY 11/25/22 09/26/23 tablet zinc acetate 50 mg (zinc) capsule 50 mg PO DAILY 11/25/22 09/26/23 Previous Rx's Medication Instructions Recorded cholecalciferol (vitamin D3) 50 50 mcg PO DAILY #30 caps 03/14/23 mcg (2,000 unit) capsule thiamine HCl (vitamin B1) 100 mg 100 mg PO DAILY 30 days #30 tabs 05/16/23 tablet diclofenac potassium 50 mg tablet 50 mg PO BID PRN pain #60 tabs 05/30/23 acyclovir 400 mg tablet 400 mg PO .5x/day 7 days #35 tabs 06/12/23 naltrexone microspheres 380 mg 380 mg IM ONCE 30 days #1 ea 08/20/23 intramuscular suspension,extended release (Vivitrol) gabapentin 100 mg capsule 100 mg PO TID #90 caps 08/28/23 trazodone 50 mg tablet 50 mg PO BEDTIME 30 days #30 tabs 08/28/23 levetiracetam 500 mg tablet 500 mg PO BID 30 days #60 tabs 09/02/23 (Keppra) naltrexone 50 mg tablet 50 mg PO DAILY #30 tabs 09/02/23 glecaprevir 100 mg-pibrentasvir 40 3 tab PO DAILY 8 weeks #168 tabs 09/23/23 mg tablet (Mavyret) estradiol 1 mg tablet 1 mg PO DAILY 30 days #30 tabs 10/01/23 omeprazole 20 mg capsule,delayed 20 mg PO DAILY 30 days #30 caps 10/01/23 release Allergies Allergy/AdvReac Type Severity Reaction Status Date / Time hydroxyzine Allergy itching Verified 09/26/23 11:29 Penicillins Allergy ALGY-Hives Verified 09/26/23 11:29 Review of Systems Const: Denies: fever(s), chills, body aches, fatigue or malaise Card: Denies: chest pain Resp: Denies: dyspnea GI: Denies: abdominal pain, nausea, vomiting or diarrhea Musc: Denies: neck pain, back pain, extremity pain or joint pain Skin/Breast: Reports: rash and pruritus Neuro: Denies: headache(s), numbness in extremities, weakness in extremities or sensory changes PFSH ED PFSH: Medical History Nicotine use disorder Chronic post-traumatic stress disorder (PTSD) Hepatitis C virus infection Bipolar disorder, current episode manic severe with psychotic features Inhalant use disorder, severe, dependence Fibromyalgia muscle pain GERD (gastroesophageal reflux disease) COPD (chronic obstructive pulmonary disease) Alcohol abuse Bipolar disorder with psychotic features Methamphetamine abuse (Unknown) Surgical History H/O cone biopsy of cervix (~05/02/22) 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 Performed by Dr. Grant for BABATUNDE 3 diagnosis. Gastric bypass status for obesity Family History Father Diabetes Stroke Heart disease Mother Hypertension Thyroid disease Brother Heart disease Denies family history of Colon cancer Ovarian cancer Breast cancer Uterine cancer Social History Smoking and tobacco/nicotine status: current every day tobacco/nicotine user (36 pack year cigarette smoker, currently evapes nicotine) cigarettes Packs smoked per day: 2 Substance/Drug Use: former Date of last use: Former cocaine use Physical Exam Const: COMMON NORMALS: no acute distress, no limitations, alert and well nourished GENERAL APPEARANCE: disheveled and appears older than stated age Resp: COMMON NORMALS: normal respiratory effort and clear to auscultation bilaterally AUSCULTATION: clear to auscultation bilaterally Cardio: COMMON NORMALS: regular rate and regular rhythm RATE: regular rate RHYTHM: regular rhythm Extremity: GENERAL: Yes normal exam except as noted Neuro: COMMON NORMALS: moves all extremities, no focal motor deficits, no sensory deficits noted and gait normal SENSORIUM/ORIENTATION: Yes alert Skin: NARRATIVE SKIN EXAM: several small 1-2mm erythematous bite like lesions/papules throughout legs and a few to forearms/trunk/back Course Vital Signs: Vital signs: Vital Signs Temperature 98.6 F 10/01/23 17:19 Pulse Rate 74 10/01/23 17:19 Respiratory Rate 16 10/01/23 17:19 Blood Pressure 105/66 10/01/23 17:19 Pulse Oximetry 98 10/01/23 17:19 Oxygen Delivery Me thod Room Air 10/01/23 16:42 MDM - Skin/Abscess/Foreign Bdy Medicial Decision Making Bites are consistent with bedbug bites. Should be instructed on conservative therapies at home to treat itch. Recommend eradication treatment in her home. No radiology studies performed this visit Discharge Plan Discharge Patient Disposition: Home Clinical Impression: Bed bug bite Qualifiers: Encounter type: initial encounter Qualified Code(s): W57.XXXA - Bitten or stung by nonvenomous insect and other nonvenomous arthropods, initial encounter Condition: Stable Prescriptions: No Action multivitamin Tablet 1 tab PO DAILY ferrous sulfate 325 mg (65 mg iron) tablet 325 mg PO DAILY ascorbate calcium (vitamin C) 500 mg tablet 500 mg PO DAILY diclofenac potassium 50 mg tablet 50 mg PO BID PRN (Reason: pain) Qty: 60 6RF acyclovir 400 mg tablet 400 mg PO .5x/day 7 Days Qty: 35 0RF Mavyret 100-40 mg tablet 3 tab PO DAILY 56 Days Qty: 168 0RF Rx Instructions: must administer with a meal/food cholecalciferol (vitamin D3) 50 mcg (2,000 unit) capsule 50 mcg PO DAILY Qty: 30 1RF Vivitrol 380 mg suspension,extended rel recon 380 mg IM ONCE 30 Days Qty: 1 1RF gabapentin 100 mg capsule 100 mg PO TID Qty: 90 2RF trazodone 50 mg tablet 50 mg PO BEDTIME 30 Days Qty: 30 2RF naltrexone 50 mg tablet 50 mg PO DAILY Qty: 30 0RF Keppra 500 mg tablet 500 mg PO BID 30 Days Qty: 60 1RF estradiol 1 mg tablet 1 mg PO DAILY 30 Days Qty: 30 3RF omeprazole 20 mg capsule,delayed release(DR/EC) 20 mg PO DAILY 30 Days Qty: 30 3RF thiamine HCl (vitamin B1) 100 mg tablet 100 mg PO DAILY 30 Days Qty: 30 1RF zinc acetate 50 mg (zinc) Capsule 50 mg PO DAILY cyanocobalamin (vitamin B-12) [Vitamin B-12] 1,000 mcg Tablet 1,000 mcg PO DAILY acetaminophen 500 mg Tablet 1,000 mg PO Q6H PRN (Reason: Pain) calcium carbonate 500 mg calcium (1,250 mg) Tablet 500 mg PO DAILY potassium gluconate 595 mg (99 mg) Tablet 595 mg PO DAILY Discharge Orders: Discharge ED (Routine); Ordered 10/01/23 Ordered By: Madhavi Joseph Referrals: Jed Luo MD [Primary Care Provider] - Patient Instructions: Bed Bugs (ED) Activity Restrictions/Additional Instructions: As we discussed continue oral Benadryl as well as topical Benadryl and/or Hydrocortisone cream. You may also use calamine lotion or any of the [id number] anti-itch therapies. You may require infestation treatment of your home. You may follow-up with primary care in 2 weeks if lesions do not seem to be improving. Coding Level of Care Code ED Reinforcing Iron Worker Helper for Elke Ortiz
[2023-10-01 17:19] VITALS: BP 105/66; PULSE 74; RESP 16; TEMP 37; O2SAT 98
== END 2023-10-01 17:20 | disposition home or self-care (01) ==
PROVIDERS: Emergency Provider Physician Assistant; PCP Family Medicine
DX: S80.862A Insect bite (nonvenomous), left lower leg, initial encounter (principal); S80.861A Insect bite (nonvenomous), right lower leg, initial encounter; S50.862A Insect bite (nonvenomous) of left forearm, initial encounter; S50.861A Insect bite (nonvenomous) of right forearm, initial encounter; S30.860A Insect bite (nonvenomous) of lower back and pelvis, initial encounter; S20.469A Insect bite (nonvenomous) of unspecified back wall of thorax, initial encounter; W57.XXXA Bitten or stung by nonvenomous insect and other nonvenomous arthropods, initial encounter; F17.210 Nicotine dependence, cigarettes, uncomplicated; Z86.19 Personal history of other infectious and parasitic diseases; J44.9 Chronic obstructive pulmonary disease, unspecified
CPT/HCPCS: 99282

== ENCOUNTER → 2023-11-04 12:22 | Outpatient (BNVA) | payer MEDICARE, SELFPAY | PROVIDERS: PCP Family Medicine; Visit Provider Family Medicine | DX: B19.20 Unspecified viral hepatitis C without hepatic coma (principal) | CPT/HCPCS: 87522 ==

== ENCOUNTER 2023-12-19 12:55 | Outpatient (CLI) | payer MEDICARE, MEDICAID, SELFPAY ==
--- NOTE | 2023-12-19 13:15 | USCV_ITS ---
Halima Hernandez Age: 53 Gender: F : 1970 Exam Date: 12/19/2023 13:13 Ordering Phys: Jed Luo MD Technologist: DILIP [place]am Location[place] [facility] [place]ication: [place] BP: / HR: 71 Rhythm: Sinus Technical Quality: Adequate MEASUREMENTS (Male / Female) Normal Values 2D ECHO LV Diastolic Diameter PLAX 4.3 cm 4.2 - 5.9 / 3.9 - 5.3 cm LV Systolic Diameter PLAX 2.8 cm IVS Diastolic Thickness 0.9 cm 0.6 - 1.0 / 0.6 - 0.9 cm IVS Systolic Thickness 1.2 cm LVPW Diastolic Thickness 1.1 cm 0.6 - 1.0 / 0.6 - 0.9 cm LVPW Systolic Thickness 1.3 cm LVOT Diameter 2.0 cm LV Ejection Fraction 2D Teich 66.8 % LV Ejection Fraction MOD 4C 54.8 % LV Ejection Fraction MOD 2C 52.8 % LV Ejection Fraction 2C AL 54.2 % LA Diameter 2.4 cm RA Systolic Volume 4C AL 20.4 ml RA Systolic Volume 4C MOD 19.5 ml LA Sys Volume AL 37.9 cm cubed LA Sys Volume Index AL 15.9 cm cubed/m squared Aorta at Sinotubular Diameter 2.6 cm IVC Diameter 1.4 cm M-MODE LA Ao Ratio MM 1.7 AV Cusp Separation MM 1.4 cm DOPPLER AV Peak Velocity 171.0 cm/s LVOT Peak Velocity 94.0 cm/s AV Area Cont Eq vti 1.9 cm squared AV Area Cont Eq pk 1.7 cm squared MV Area PHT 4.8 cm squared Mitral E to A Ratio 1.2 TV Peak Velocity 203.3 cm/s TR Peak Velocity 219.0 cm/s TR Peak Gradient 19.2 mmHg TR Mean Velocity 139.0 cm/s TR Mean Gradient 9.8 mmHg TR Velocity Time Integral 56.4 cm Right Atrial Pressure 3.0 mmHg Pulmonary Artery Systolic Pressu 22.2 mmHg PV Peak Velocity 89.0 cm/s FINDINGS Left Ventricle Normal left ventricular size, systolic function and wall thickness, with no regional wall motion abnormalities. Estimated LVEF normal 60%. Right Ventricle Normal right ventricular size and systolic function. Right Atrium Normal right atrial size. Left Atrium Normal left atrial size. Mitral Valve Structurally normal mitral valve. Trace mitral valve regurgitation. Aortic Valve Structurally normal trileaflet aortic valve. No aortic valve stenosis. No aortic valve regurgitation. Tricuspid Valve Structurally normal tricuspid valve. Trace tricuspid valve regurgitation. Pulmonic Valve Structurally normal pulmonic valve. Trace pulmonary valve regurgitation. Pericardium No pericardial effusion. Aorta Normal size aortic root and proximal ascending aorta. IVC Normal inferior vena cava. CONCLUSIONS Normal LV systolic function. Normal LVEF of 60%. Normal chamber sizes. No significant valvular abnormality noted. Normal right heart and pulmonary pressures. Lilibeth Trujillo MD (Electronically Signed) Final Date: 19 December 2023 15:05 S
== END 2023-12-19 12:56 | disposition home or self-care (01) ==
LOC: RAD 12:58
PROVIDERS: PCP Family Medicine; Visit Provider Family Medicine
DX: R01.1 Cardiac murmur, unspecified (principal); F19.11 Other psychoactive substance abuse, in remission
CPT/HCPCS: 93306

== ENCOUNTER 2023-12-26 00:22 | Emergency (ER) | payer MEDICARE, MEDICAID, SELFPAY ==
[2023-12-26 00:29] VITALS: BP 132/83; PULSE 103; RESP 18; TEMP 36.9; O2SAT 97; BMI 20.7
[2023-12-26 01:04] LABS: Bilirubin Urine Negative (Negative); Blood Urine Negative (Negative); Glucose Urine UA Negative (Normal); Ketones Urine Negative (Negative); Leukocyte Esterase Urine 3+ (Negative); Nitrate Urine Positive (Negative); Protein Urine Negative (Negative); Specific Gravity, Urine 1.008 (1.005-1.030); Urine Appearance Cloudy (CLEAR); Urine Color Yellow (Yellow)
[2023-12-26 01:08] LABS: Basophils # 0.1 10^3/uL (0.0-0.1); Basophils % 1.8 %; Eosinophils # 0.1 10^3/uL (0.0-0.8); Eosinophils % 0.9 %; Hematocrit 36.5 % (36-47); Lymphocytes # 3.5 10^3/uL (0.8-4.8); Lymphocytes % 44.4 %; Mean Corpuscular HGB Conc 32.6 g/dL (30-55); Mean Corpuscular Hemoglobin 31.4 pg (27-33); Mean Corpuscular Volume 96.3 fl (85-98); Mean Platelet Volume 9.6 fL (7.4-10.4); Monocytes # 0.9 10^3/uL (0.2-0.9); Monocytes % 11.4 %; Neutrophils # 3.24 10^3/uL (1.8-7.7); Neutrophils % 41.2 %; Nucleated Red Blood Cells % 0 %; Platelet Count 115 10^3/cmm (157-399); Red Blood Count 3.79 10^6/uL (3.85-5.65); Red Cell Distribution Width 13.6 % (12.1-15.1); White Blood Count 7.84 10^3/uL (3.29-11.43)
[2023-12-26 01:09] LABS: Add Urine Microscopic? YES; Bacteria Urine 4+ /hpf; Hyaline Casts Urine 0-4 /lpf; RBC Urine 0-2 /hpf (0-2); Squamous Epithelial Cell Urine 0-5 /hpf (0-5); WBC Urine 51-100 /hpf (0-5)
--- NOTE | 2023-12-26 01:09 | ED_ITS ---
HPI - Abdominal Pain 2 General: Chief Complaint: Abdominal Pain Stated Complaint: kidney, back pain Time Seen by Provider: 12/26/23 00:29 History of Present Illness: Patient presents to the ER with complaints of right-sided low back flank pain. Patient thinks her kidney. Patient says been having symptoms for about the last 3 days. Denies any nausea vomiting diarrhea constipation cough cold fevers chills. Patient does admit to been drinking alcohol tonight. Related Data Home Medications Medication Instructions Recorded Confirmed ascorbate calcium (vitamin C) 500 500 mg PO DAILY 05/16/22 12/23/23 mg tablet ferrous sulfate 325 mg (65 mg 325 mg PO DAILY 05/16/22 12/23/23 iron) tablet multivitamin 1 tab PO DAILY 05/16/22 12/23/23 acetaminophen 500 mg tablet 1,000 mg PO Q6H PRN Pain 11/25/22 12/23/23 calcium carbonate 500 mg PO DAILY 11/25/22 12/23/23 cyanocobalamin (vitamin B-12) 1,000 mcg PO DAILY 11/25/22 12/23/23 1,000 mcg tablet (Vitamin B-12) potassium gluconate 595 mg (99 mg) 595 mg PO DAILY 11/25/22 12/23/23 tablet zinc acetate 50 mg (zinc) capsule 50 mg PO DAILY 11/25/22 12/23/23 Previous Rx's Medication Instructions Recorded cholecalciferol (vitamin D3) 50 50 mcg PO DAILY #30 caps 03/14/23 mcg (2,000 unit) capsule thiamine HCl (vitamin B1) 100 mg 100 mg PO DAILY 30 days #30 tabs 05/16/23 tablet diclofenac potassium 50 mg tablet 50 mg PO BID PRN pain #60 tabs 05/30/23 acyclovir 400 mg tablet 400 mg PO .5x/day 7 days #35 tabs 06/12/23 trazodone 50 mg tablet 50 mg PO BEDTIME 30 days #30 tabs 08/28/23 glecaprevir 100 mg-pibrentasvir 40 3 tab PO DAILY 8 weeks #168 tabs 09/23/23 mg tablet (Mavyret) estradiol 1 mg tablet 1 mg PO DAILY 30 days #30 tabs 10/01/23 omeprazole 20 mg capsule,delayed 20 mg PO DAILY 30 days #30 caps 10/01/23 release gabapentin 100 mg capsule 200 mg (2 x 100 mg) PO TID #180 10/11/23 caps naltrexone 50 mg tablet 50 mg PO DAILY #30 tabs 10/25/23 sodium bicarbonate-sodium 1 ea .Route QID #30 ea 11/29/23 chloride-neti pot nasal rinse with packet (Sinus Wash Neti Pot with packet) ciprofloxacin HCl 500 mg tablet 500 mg PO Q12H #20 tabs 12/26/23 Allergies Allergy/AdvReac Type Severity Reaction Status Date / Time hydroxyzine Allergy itching Verified 12/26/23 00:34 Penicillins Allergy ALGY-Hives Verified 12/26/23 00:34 Review of Systems 2 General: Reports: 10 or more systems reviewed and unremarkable except in HPI and below PFSH ED 2 PFSH: Medical History Nicotine use disorder Chronic post-traumatic stress disorder (PTSD) Hepatitis C virus infection Bipolar disorder, current episode manic severe with psychotic features Inhalant use disorder, severe, dependence Fibromyalgia muscle pain GERD (gastroesophageal reflux disease) COPD (chronic obstructive pulmonary disease) Alcohol abuse Bipolar disorder with psychotic features Methamphetamine abuse (Unknown) Surgical History H/O cone biopsy of cervix (~05/02/22) 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 Performed by Dr. Grant for BABATUNDE 3 diagnosis. Gastric bypass status for obesity Family History Father Diabetes Stroke Heart disease Mother Hypertension Thyroid disease Brother Heart disease Methamphetamine abuse Denies family history of Colon cancer Ovarian cancer Breast cancer Uterine cancer Social History Smoking and tobacco/nicotine status: unknown if used tobacco/nicotine Alcohol intake: former Substance/Drug Use: former Date of last use: Former cocaine use Physical Exam 2 Const: COMMON NORMALS: no acute distress, average body habitus, patient oriented x3, no limitations, healthy appearing, alert and well nourished HENMT: COMMON NORMALS: normocephalic, atraumatic, hearing grossly normal bilaterally, external ears normal, Normal external nose present and moist oral mucous membranes HEAD & SCALP: normocephalic and atraumatic NOSE: Normal external nose present EXTERNAL EAR: Yes external ears normal Neck/C-Spine: COMMON NORMALS: no JVD Chest: COMMONS NORMALS: normal inspection of the chest and normal palpation of entire chest wall Resp: COMMON NORMALS: normal respiratory effort, No retractions and No use of accessory muscles Cardio: COMMON NORMALS: no JVD, regular rate, regular rhythm, S1 normal heart sound present, S2 normal heart sound present, No gallops present (Cardio), No clicks present (Cardio), No murmurs present (Cardio) and No rub (Cardio) R ATE: regular rate RHYTHM: regular rhythm HEART SOUNDS: S1 normal heart sound present and S2 normal heart sound present GI: COMMON NORMALS: Normal to inspection, nondistended, normoactive bowel sounds present, Soft to palpation, non-tender, No hepatosplenomegaly present and no masses PALPATION: Yes Soft to palpation and Yes No hepatosplenomegaly present Back/Pelvis: OTHER: Tenderness with palpation over right lateral paraspinal lumbar musculature. Neuro: COMMON NORMALS: patient oriented x3 SENSORIUM/ORIENTATION: Yes alert Course 2 Vital Signs: Vital signs: Vital Signs Temperature 98.4 F 12/26/23 00:29 Pulse Rate 103 H 12/26/23 00:29 Respiratory Rate 18 12/26/23 00:29 Blood Pressure 132/83 12/26/23 00:29 Pulse Oximetry 97 12/26/23 00:29 Oxygen Delivery Me thod Room Air 12/26/23 00:29 MDM - Abdominal Pain Medical Decision Making CBC CMP UA was obtained, upon waiting for the results to come back patient decided she wanted to leave. Patient left AMA. Medical Records I reviewed the patient's medical records. Lab Data I reviewed the patient's lab results. 12/26/23 01:03 12/26/23 01:03 Labs/Radiology: Laboratory Results WBC 7.84 10^3/uL (3.29-11.43) 12/26/23 01:03 RBC 3.79 10^6/uL (3.85-5.65) L 12/26/23 01:03 Hgb 11.90 g/dL (11.27-16.99) 12/26/23 01:03 Hct 36.5 % (36-47) 12/26/23 01:03 MCV 96.3 fl (85-98) 12/26/23 01:03 MCH 31.4 pg (27-33) 12/26/23 01:03 MCHC 32.6 g/dL (30-55) 12/26/23 01:03 RDW 13.6 % (12.1-15.1) 12/26/23 01:03 Plt Count 115 10^3/cmm (157-399) L 12/26/23 01:03 MPV 9.6 fL (7.4-10.4) 12/26/23 01:03 Neut % (Auto) 41.2 % 12/26/23 01:03 Lymph % (Auto) 44.4 % 12/26/23 01:03 Jenkins % (Auto) 11.4 % 12/26/23 01:03 Eos % (Auto) 0.9 % 12/26/23 01:03 Baso % (Auto) 1.8 % 12/26/23 01:03 Neut # (Auto) 3.24 10^3/uL (1.8-7.7) 12/26/23 01:03 Lymph # (Auto) 3.5 10^3/uL (0.8-4.8) 12/26/23 01:03 Jenkins # (Auto) 0.9 10^3/uL (0.2-0.9) 12/26/23 01:03 Eos # (Auto) 0.1 10^3/uL (0.0-0.8) 12/26/23 01:03 Baso # (Auto) 0.1 10^3/uL (0.0-0.1) 12/26/23 01:03 Nucleated RBC % (auto) 0 % 12/26/23 01:03 Nucleated RBCs # 0.0 /100WBC 12/26/23 01:03 Sodium 139 mmol/L (136-145) 12/26/23 01:03 Potassium 3.8 mmol/L (3.5-5.1) 12/26/23 01:03 Chloride 102 mmol/L (98-107) 12/26/23 01:03 Carbon Dioxide 23 mmol/L (22-29) 12/26/23 01:03 Anion Gap 17.8 (5-19) 12/26/23 01:03 BUN 5 mg/dL (6-20) L 12/26/23 01:03 Creatinine 0.4 mg/dL (0.5-0.9) L 12/26/23 01:03 GFR Calculation 168.3 mL/min (90-130) H 12/26/23 01:03 Glucose 108 mg/dL (65-115) 12/26/23 01:03 Calculated Osmolality 286 mOsm/kg (285-295) 12/26/23 01:03 Calcium 8.3 mg/dL (8.5-10.5) L 12/26/23 01:03 Total Bilirubin 0.7 mg/dL (0.15-1.2) 12/26/23 01:03 AST 131 U/L (0-32) H 12/26/23 01:03 ALT 43 U/L (0-33) H 12/26/23 01:03 Alkaline Phosphatase 122 U/L (35-105) H 12/26/23 01:03 Total Protein 7.6 g/dL (6.6-8.7) 12/26/23 01:03 Albumin 4.2 g/dL (3.5-5.2) 12/26/23 01:03 Globulin 3.4 g/dL (1.3-4.6) 12/26/23 01:03 Urine Color Yellow (Yellow) 12/26/23 00:48 Urine Appearance Cloudy (CLEAR) A 12/26/23 00:48 Urine pH 6.0 (5-7) 12/26/23 00:48 Ur Specific [place] 1.008 (1.005-1.030) 12/26/23 00:48 Urine Protein Negative (Negative) 12/26/23 00:48 Urine Glucose (UA) Negative (Normal) 12/26/23 00:48 Urine Ketones Negative (Negative) 12/26/23 00:48 Urine Blood Negative (Negative) 12/26/23 00:48 Urine Nitrate Positive (Negative) A 12/26/23 00:48 Urine Bilirubin Negative (Negative) 12/26/23 00:48 Urine Urobilinogen 1.0 mg/dL (Negative) 12/26/23 00:48 Ur Leukocyte Esterase 3+ (Negative) A 12/26/23 00:48 Urine RBC 0-2 /hpf (0-2) 12/26/23 00:48 Urine WBC 51-100 /hpf (0-5) H 12/26/23 00:48 Ur Squamous Epith Cells 0-5 /hpf (0-5) 12/26/23 00:48 Amorphous Sediment Not Reportable 12/26/23 00:48 Urine Bacteria 4+ /hpf (NONE) H 12/26/23 00:48 Hyaline Casts 0-4 /lpf H 12/26/23 00:48 All radiology interpretation(s) finalized by discharge Discharge Plan Discharge Patient Disposition: Left Against Medical Advice Clinical Impression: Left against medical advice Condition: Stable Prescriptions: New ciprofloxacin HCl 500 mg tablet 500 mg PO Q12H Qty: 20 0RF No Action multivitamin Tablet 1 tab PO DAILY ferrous sulfate 325 mg (65 mg iron) tablet 325 mg PO DAILY ascorbate calcium (vitamin C) 500 mg tablet 500 mg PO DAILY diclofenac potassium 50 mg tablet 50 mg PO BID PRN (Reason: pain) Qty: 60 6RF gabapentin 100 mg capsule 200 mg PO TID Qty: 180 2RF acyclovir 400 mg tablet 400 mg PO .5x/day 7 Days Qty: 35 0RF Mavyret 100-40 mg tablet 3 tab PO DAILY 56 Days Qty: 168 0RF Rx Instructions: must administer with a meal/food Sinus Wash Neti Pot Packet With Rinse Device 1 ea .Route QID Qty: 30 0RF Rx Instructions: Use saline rinse QID per nostril prn nasal congestion cholecalciferol (vitamin D3) 50 mcg (2,000 unit) capsule 50 mcg PO DAILY Qty: 30 1RF trazodone 50 mg tablet 50 mg PO BEDTIME 30 Days Qty: 30 2RF estradiol 1 mg tablet 1 mg PO DAILY 30 Days Qty: 30 3RF omeprazole 20 mg capsule,delayed release(DR/EC) 20 mg PO DAILY 30 Days Qty: 30 3RF naltrexone 50 mg tablet 50 mg PO DAILY Qty: 30 3RF thiamine HCl (vitamin B1) 100 mg tablet 100 mg PO DAILY 30 Days Qty: 30 1RF zinc acetate 50 mg (zinc) Capsule 50 mg PO DAILY cyanocobalamin (vitamin B-12) [Vitamin B-12] 1,000 mcg Tablet 1,000 mcg PO DAILY acetaminophen 500 mg Tablet 1,000 mg PO Q6H PRN (Reason: Pain) calcium carbonate 500 mg calcium (1,250 mg) Tablet 500 mg PO DAILY potassium gluconate 595 mg (99 mg) Tablet 595 mg PO DAILY Referrals: Jed Luo MD [Primary Care Provider] - 1-3 days Patient Instructions: Against Medical Advice (ED) Coding Level of Care Code ED Toxics Program Officer for Elke Ortiz
[2023-12-26 01:14] LABS: Add Urine Culture? Yes
[2023-12-26 01:29] LABS: Alanine Aminotransferase 43 U/L (0-33); Albumin Level 4.2 g/dL (3.5-5.2); Alkaline Phosphatase 122 U/L (35-105); Anion Gap 17.8 (5-19); Aspartate Amino Transferase 131 U/L (0-32); Blood Urea Nitrogen 5 mg/dL (6-20); Calcium 8.3 mg/dL (8.5-10.5); Carbon Dioxide 23 mmol/L (22-29); Chloride 102 mmol/L (98-107); Creatinine Clr Calc Pharmacy 171.0562; Globulin 3.4 g/dL (1.3-4.6); Glomerular Filtration Rate 168.3 mL/min (90-130); Glucose 108 mg/dL (65-115); Osmolality Calculated 286 mOsm/kg (285-295); Potassium 3.8 mmol/L (3.5-5.1); Sodium 139 mmol/L (136-145); Total Bilirubin 0.7 mg/dL (0.15-1.2); Total Protein 7.6 g/dL (6.6-8.7)
== END 2023-12-26 01:28 | disposition left against medical advice (07) ==
PROVIDERS: Emergency Provider Emergency Medicine; PCP Family Medicine
DX: Z53.21 Procedure and treatment not carried out due to patient leaving prior to being seen by health care provider (principal); J44.9 Chronic obstructive pulmonary disease, unspecified
CPT/HCPCS: 80053; 81001; 85025; 87077; 87086; 87186; 99283

== ENCOUNTER 2024-02-21 06:39 | Emergency (ER) | payer MEDICARE, MEDICAID, SELFPAY ==
[2024-02-21 06:58] VITALS: BP 111/67; PULSE 90; RESP 18; TEMP 36.8; O2SAT 96
--- NOTE | 2024-02-21 07:44 | ED_ITS ---
HPI - General Adult General: Chief complaint: General Medical Stated complaint: Vag Pain Time Seen by Provider: 02/21/24 06:50 History of Present Illness: 53-year-old female presents by EMS repor ts she did drink some alcohol earlier this today reporting she been having some dysuria and urinary frequency. She denies any vaginal discharge she has a known history of UTIs previously. Patient does report a new sexual contact. She denies any abdominal pain reports no fevers or chills or any other associated symptoms. Patient presents to the ER for further assessment and management. Associated symptoms: Deny chest pain, dyspnea, headache(s), malaise, nausea, rash, palpitations or vomiting Related Data Home Medications Medication Instructions Recorded Confirmed acetaminophen 500 mg tablet 1,000 mg PO Q6H PRN Pain 11/25/22 02/21/24 cyanocobalamin (vitamin B-12) 1,000 mcg PO DAILY 11/25/22 02/21/24 1,000 mcg tablet (Vitamin B-12) Previous Rx's Medication Instructions Recorded cholecalciferol (vitamin D3) 50 50 mcg PO DAILY #30 caps 03/14/23 mcg (2,000 unit) capsule glecaprevir 100 mg-pibrentasvir 40 3 tab PO DAILY 8 weeks #168 tabs 09/23/23 mg tablet (Mavyret) naltrexone 50 mg tablet 50 mg PO DAILY #30 tabs 02/13/24 Allergies Allergy/AdvReac Type Severity Reaction Status Date / Time hydroxyzine Allergy itching Verified 12/26/23 00:34 Penicillins Allergy ALGY-Hives Verified 12/26/23 00:34 Review of Systems General: Reports: 10 or more systems reviewed and unremarkable except in HPI and below Const: Denies: fever(s), chills, fatigue or malaise Eyes: Denies: change in vision or blurry vision Card: Denies: chest pain or palpitations Resp: Denies: dyspnea or productive cough GI: Denies: abdominal pain, nausea or vomiting : Reports: flank pain, dysuria and urinary frequency; Denies: vaginal bleeding or vaginal discharge Musc: Denies: extremity pain or extremity swelling Skin/Breast: Denies: rash or pruritus Neuro: Denies: headache(s) Psych: Denies: anxiety or depression Jose/Lymph: Denies: easy bleeding All/Imm: Denies: urticaria, throat swelling or facial swelling PFSH ED PFSH: Medical History Nicotine use disorder Chronic post-traumatic stress disorder (PTSD) Hepatitis C virus infection Bipolar disorder, current episode manic severe with psychotic features Inhalant use disorder, severe, dependence Fibromyalgia muscle pain GERD (gastroesophageal reflux disease) COPD (chronic obstructive pulmonary disease) Alcohol abuse Bipolar disorder with psychotic features Methamphetamine abuse (Unknown) Surgical History H/O cone biopsy of cervix (~05/02/22) 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 Performed by Dr. Grant for BABATUNDE 3 diagnosis. Gastric bypass status for obesity Family History Father Diabetes Stroke Heart disease Mother Hypertension Thyroid disease Brother Heart disease Methamphetamine abuse Denies family history of Colon cancer Ovarian cancer Breast cancer Uterine cancer Social History Smoking and tobacco/nicotine status: unknown if used tobacco/nicotine Alcohol intake: former Substance/Drug Use: former Date of last use: Former cocaine use Physical Exam Const: COMMON NORMALS: no acute distress, patient oriented x3 and healthy appearing HENMT: COMMON NORMALS: normocephalic and atraumatic HEAD & SCALP: normocephalic and atraumatic Eye: COMMON NORMALS: Equal, round and reactive pupils present and EOMs intact bilaterally PUPIL: Yes Equal, round and reactive pupils present Neck/C-Spine: COMMON NORMALS: full ROM, supple and no JVD Lymph: LYMPHATIC: no lymphadenopathy noted Chest: COMMONS NORMALS: normal inspection of the chest and normal palpation of entire chest wall Resp: COMMON NORMALS: normal respiratory effort, No retractions and clear to auscultation bilaterally EFFORT & INSPECTION: Yes able to speak in complete sentences and Yes symmetric chest movement AUSCULTATION: clear to auscult ation bilaterally Cardio: COMMON NORMALS: no JVD, regular rate and regular rhythm RATE: regular rate RHYTHM: regular rhythm GI: COMMON NORMALS: Normal to inspection, nondistended, normoactive bowel sounds present (Mild pain appreciated to suprapubic region otherwise soft nontender nondist), Soft to palpation and non-tender INSPECTION: Yes normal to inspection PALPATION: Yes Soft to palpation : COMMON NORMALS: Yes no CVA tenderness BLADDER/KIDNEY EXAM: Yes no CVA tenderness Back/Pelvis: COMMON NORMALS: no CVA tenderness Extremity: COMMON NORMALS: normal to inspection and full ROM Neuro: COMMON NORMALS: patient oriented x3, CN's II-XII intact bilaterally, moves all extremities and no focal motor deficits Psych: COMMON NORMALS: mental status grossly normal, Normal thought process present, cooperative and normal affect THOUGHT PROCESS: Normal thought process present Skin: COMMON NORMALS: no rashes or lesions noted GENERAL SKIN EXAM: no rashes or lesions noted Course Vital Signs: Vital signs: Vital Signs Temperature 98.2 F 02/21/24 06:58 Pulse Rate 90 02/21/24 06:58 Respiratory Rate 18 02/21/24 06:58 Blood Pressure 111/67 02/21/24 06:58 Pulse Oximetry 96 02/21/24 06:58 Oxygen Delivery Me thod Room Air 02/21/24 06:58 MDM - General Adult Medical Decision Making Due to patient's symptoms and condition urinalysis will be obtained will continue to follow. Notified by nursing staff the patient is demanding to leave against medical advise she is done waiting for her labs any longer which she wants to leave AGAINST MEDICAL ADVICE the patient was advised of the lack of any additional lab work we cannot treat her the patient is of sound mind able-bodied no focal neurodeficits appears to be in no obvious acute distress the patient was signed out by nursing staff per her wishes and further advise that she further follow- up with primary care as indicated in which to return the interim if any of her symptoms persist or worse. Lab Data Laboratory Results Urine Color Yellow (Yellow) 02/21/24 06:55 Urine Appearance Clear (CLEAR) 02/21/24 06:55 Urine pH 5.5 (5-7) 02/21/24 06:55 Ur Specific [place] 1.005 (1.005-1.030) 02/21/24 06:55 Urine Protein Negative (Negative) 02/21/24 06:55 Urine Glucose (UA) Negative (Normal) 02/21/24 06:55 Urine Ketones Negative (Negative) 02/21/24 06:55 Urine Blood Negative (Negative) 02/21/24 06:55 Urine Nitrate Positive (Negative) A 02/21/24 06:55 Urine Bilirubin Negative (Negative) 02/21/24 06:55 Urine Urobilinogen 1.0 mg/dL (Negative) 02/21/24 06:55 Ur Leukocyte Esterase 1+ (Negative) A 02/21/24 06:55 Urine RBC 0-2 /hpf (0-2) 02/21/24 06:55 Urine WBC 21-50 /hpf (0-5) H 02/21/24 06:55 Ur Squamous Epith Cells 0-5 /hpf (0-5) 02/21/24 06:55 Amorphous Sediment Not Reportable 02/21/24 06:55 Urine Bacteria 4+ /hpf (NONE) H 02/21/24 06:55 Hyaline Casts 0-4 /lpf H 02/21/24 06:55 No radiology studies performed this visit Discharge Plan Discharge Patient Disposition: Left Against Medical Advice Clinical Impression: Abdominal wall pain in suprapubic region Condition: Stable Prescriptions: No Action Mavyret 100-40 mg tablet 3 tab PO DAILY 56 Days Qty: 168 0RF Rx Instructions: must administer with a meal/food cholecalciferol (vitamin D3) 50 mcg (2,000 unit) capsule 50 mcg PO DAILY Qty: 30 1RF naltrexone 50 mg tablet 50 mg PO DAILY Qty: 30 3RF cyanocobalamin (vitamin B-12) [Vitamin B-12] 1,000 mcg Tablet 1,000 mcg PO DAILY acetaminophen 500 mg Tablet 1,000 mg PO Q6H PRN (Reason: Pain) Referrals: Jed Luo MD [Primary Care Provider] - Patient Instructions: Abdominal Pain (ED) Coding Level of Care Code ED [employer] Customer Experience Advisor for Elke Ortiz
[2024-02-21 07:55] LABS: Bilirubin Urine Negative (Negative); Blood Urine Negative (Negative); Glucose Urine UA Negative (Normal); Ketones Urine Negative (Negative); Leukocyte Esterase Urine 1+ (Negative); Nitrate Urine Positive (Negative); Protein Urine Negative (Negative); Specific Gravity, Urine 1.005 (1.005-1.030); Urine Appearance Clear (CLEAR); Urine Color Yellow (Yellow); pH Urine 5.5 (5-7)
[2024-02-21 08:00] LABS: Add Urine Microscopic? YES; Bacteria Urine 4+ /hpf; Hyaline Casts Urine 0-4 /lpf; RBC Urine 0-2 /hpf (0-2); Squamous Epithelial Cell Urine 0-5 /hpf (0-5); WBC Urine 21-50 /hpf (0-5)
[2024-02-21 08:29] LABS: Add Urine Culture? Yes
[2024-02-21 08:32] VITALS: O2SAT 98
--- NOTE | 2024-02-21 08:32 | PC.NURSE ---
pt ambulated to ED nurses station requesting to leave AMA. ED provider notified, pt informed of pending urine, denies wanting to wait. pt ambulated to ED exit with steady gait, AOX4. pt called friend Clark Rodas stated will pick pt up.
== END 2024-02-21 08:34 | disposition left against medical advice (07) ==
PROVIDERS: Emergency Provider Emergency Medicine; PCP Family Medicine
DX: R10.9 Unspecified abdominal pain (principal); J44.9 Chronic obstructive pulmonary disease, unspecified
CPT/HCPCS: 81001; 87077; 87086; 87186; 99283

== ENCOUNTER 2024-03-29 06:34 | Emergency (ER) | payer MEDICARE, MEDICAID, SELFPAY ==
[2024-03-29 06:41] VITALS: BP 117/85; PULSE 85; RESP 16; TEMP 36.7; O2SAT 96; BMI 20.7
[2024-03-29 07:21] LABS: Basophils # 0.1 10^3/uL (0.0-0.1); Basophils % 2.2 %; Eosinophils # 0.1 10^3/uL (0.0-0.8); Eosinophils % 2.4 %; Hematocrit 36.5 % (36-47); Lymphocytes # 1.8 10^3/uL (0.8-4.8); Lymphocytes % 42.7 %; Mean Corpuscular HGB Conc 32.9 g/dL (30-55); Mean Corpuscular Hemoglobin 31.3 pg (27-33); Mean Corpuscular Volume 95.3 fl (85-98); Mean Platelet Volume 10.4 fL (7.4-10.4); Monocytes # 0.4 10^3/uL (0.2-0.9); Monocytes % 8.8 %; Neutrophils # 1.79 10^3/uL (1.8-7.7); Neutrophils % 43.7 %; Nucleated Red Blood Cells % 0 %; Platelet Count 74 10^3/cmm (157-399); Red Blood Count 3.83 10^6/uL (3.85-5.65); Red Cell Distribution Width 13.6 % (12.1-15.1)
[2024-03-29 07:38] LABS: HCG Qualitative Urine. Negative (Negative)
[2024-03-29 07:38] LABS: Alanine Aminotransferase 122 U/L (0-33); Alkaline Phosphatase 136 U/L (35-105); Anion Gap 19.4 (5-19); Aspartate Amino Transferase 325 U/L (0-32); Blood Urea Nitrogen 5 mg/dL (6-20); Calcium 8.9 mg/dL (8.5-10.5); Carbon Dioxide 24 mmol/L (22-29); Chloride 104 mmol/L (98-107); Globulin 3.9 g/dL (1.3-4.6); Glomerular Filtration Rate 168.3 mL/min (90-130); Glucose 101 mg/dL (65-115); Osmolality Calculated 295 mOsm/kg (285-295); Potassium 3.4 mmol/L (3.5-5.1); Sodium 144 mmol/L (136-145); Total Bilirubin 0.5 mg/dL (0.15-1.2); Total Protein 7.9 g/dL (6.6-8.7)
[2024-03-29 07:40] LABS: Acetaminophen < 5.0 ug/mL (10-30); Creatinine Clr Calc Pharmacy 171.0562; Salicylate < 0.3 mg/dL (3-10)
[2024-03-29 07:41] LABS: Alcohol Level 334 mg/dL (0-10)
--- NOTE | 2024-03-29 17:36 | ED_ITS ---
HPI - Alcohol 2 General: Chief Complaint: Alcohol Stated Complaint: ETOH Time Seen by Provider: 03/29/24 06:50 History of Present Illness: This patient is a 53-year-old presenting with the statement I am really drunk . She reports that she would like to go to [facility] for rehab. She has bruising on her face that she says was from a few weeks ago when she fell after having a seizure. She denies any other complaints right now. She does say that she has trouble eating because she throws up so much. She is able to drink however and continues to drink daily. Her last drink was about an hour ago. She denies other drug use currently. Related Data Home Medications ?Medication ?Instructions ?Recorded ?Confirmed acetaminophen 500 mg tablet 1,000 mg PO Q6H PRN Pain 1 02/21/24 cyanocobalamin (vitamin B-12) 1,000 mcg PO DAILY 11/2502/21/24 1,000 mcg tablet (Vitamin B-12) Previous Rx's ?Medication ?Instructions ?Recorded cholecalciferol (vitamin D3) 50 50 mcg PO DAILY #30 ca ps 03/14/23 mcg (2,000 unit) capsule glecaprevir 100 mg-pibrentasvir 40 3 tab PO DAILY 8 we eks #168 tabs 09/23/23 mg tablet (Mavyret) naltrexone 50 mg tablet 50 mg PO DAILY #30 tabs 01/19 08/11 ciprofloxacin HCl 500 mg tablet 500 mg PO BID 7 days # 14 tabs 03/02/24 Allergies Allergy/AdvReac Type Severity Reaction Status Date / Time hydroxyzine Allergy itching Verified 03/15/24 14:41 Penicillins Allergy ALGY-Hives Verified 03/15/24 14:41 [facility] ED 2 PFSH: Medical History Nicotine use disorder Chronic post-traumatic stress disorder (PTSD) Hepatitis C virus infection Bipolar disorder, current episode manic severe with psychotic features Inhalant use disorder, severe, dependence Fibromyalgia muscle pain GERD (gastroesophageal reflux disease) COPD (chronic obstructive pulmonary disease) Alcohol abuse Bipolar disorder with psychotic features Methamphetamine abuse (Unknown) Surgical History H/O cone biopsy of cervix (~05/02/22) 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 Performed by Dr. Grant for BABATUNDE 3 diagnosis. Gastric bypass status for obesity Family History Father Diabetes Stroke Heart disease Mother Hypertension Thyroid disease Brother Heart disease Methamphetamine abuse Denies family history of Colon cancer Ovarian cancer Breast cancer Uterine cancer Social History Smoking and tobacco/nicotine status: unknown if used tobacco/nicotine Alcohol intake: former Substance/Drug Use: former Date of last use: Former cocaine use Physical Exam 2 Const: COMMON NORMALS: no acute distress, patient oriented x3, no limitations and alert GENERAL APPEARANCE: cooperative and comfortable HENMT: HEAD & SCALP: normal to inspection FACE & SINUS: normal facial exam OTHER: Resolving bruising over the left side of her face and forehead Eye: GENERAL EYE: appearance normal, both eyes and all related structures Neck/C-Spine: COMMON NORMALS: supple, no meningeal signs and no JVD Chest: COMMONS NORMALS: normal inspection of the chest Resp: COMMON NORMALS: normal respiratory effort, No use of accessory muscles and clear to auscultation bilaterally AUSCULTATION: clear to auscultation bilaterally Cardio: COMMON NORMALS: no JVD, regular rate, regular rhythm and No murmurs present (Cardio) RATE: regular rate RHYTHM: regular rhythm GI: COMMON NORMALS: Normal to inspection, nondistended, normoactive bowel sounds present, Soft to palpation and non-tender INSPECTION: Yes normal to inspection AUSCULTATION: Yes normoactive bowel sounds PALPATION: Yes Soft to palpation Back/Pelvis: COMMON NORMALS: thoracic and lumbar spine normal to inspection Extremity: COMMON NORMALS: normal to inspection Neuro: COMMON NORMALS: patient oriented x3, moves all extremities, no focal motor deficits and no sensory deficits noted SENSORIUM/ORIENTATION: Yes alert MENINGEAL SIGNS: Yes no meningeal signs Psych: COMMON NORMALS: mental status grossly normal, cooperative and normal affect Skin: COMMON NORMALS: no rashes or lesions noted and turgor normal GENERAL SKIN EXAM: no rashes or lesions noted and turgor normal Course 2 Vital Signs: Vital signs: Vital Signs Temperature 98.1 F 03/29/24 06:41 Pulse Rate 85 03/29/24 06:41 Respiratory Rate 16 03/29/24 06:41 Blood Pressure 117/85 03/29/24 06:41 Pulse Oximetry 96 03/29/24 06:41 Oxygen Delivery Me thod Room Air 03/29/24 06:41 MDM - Alcohol Medical Decision Making Patient was intoxicated but able to ambulate and was completely oriented to person place time and situation. She initially said she wanted to go to [facility] but then decided that she preferred to leave. As she was able to understand the consequences of her decision she was allowed to sign out AGAINST MEDICAL ADVICE. Although her alcohol level was high she was felt to be competent to be her own decision maker. Lab Data 03/29/24 07:14 03/29/24 07:14 Laboratory Results WBC 4.10 10^3/uL (3.29-11.43) 03/29/24 07:14 RBC 3.83 10^6/uL (3.85-5.65) L 03/29/24 07:14 Hgb 12.00 g/dL (11.27-16.99) 03/29/24 07:14 Hct 36.5 % (36-47) 03/29/24 07:14 MCV 95.3 fl (85-98) 03/29/24 07:14 MCH 31.3 pg (27-33) 03/29/24 07:14 MCHC 32.9 g/dL (30-55) 03/29/24 07:14 RDW 13.6 % (12.1-15.1) 03/29/24 07:14 Plt Count 74 10^3/cmm (157-399) L 03/29/24 07:14 MPV 10.4 fL (7.4-10.4) 03/29/24 07:14 Neut % (Auto) 43.7 % 03/29/24 07:14 Lymph % (Auto) 42.7 % 03/29/24 07:14 [place] % (Auto) 8.8 % 03/29/24 07:14 Eos % (Auto) 2.4 % 03/29/24 07:14 Baso % (Auto) 2.2 % 03/29/24 07:14 Neut # (Auto) 1.79 10^3/uL (1.8-7.7) L 03/29/24 07:14 Lymph # (Auto) 1.8 10^3/uL (0.8-4.8) 03/29/24 07:14 [place] # (Auto) 0.4 10^3/uL (0.2-0.9) 03/29/24 07:14 Eos # (Auto) 0.1 10^3/uL (0.0-0.8) 03/29/24 07:14 Baso # (Auto) 0.1 10^3/uL (0.0-0.1) 03/29/24 07:14 Nucleated RBC % (auto) 0 % 03/29/24 07:14 Nucleated RBCs # 0.0 /100WBC 03/29/24 07:14 Sodium 144 mmol/L (136-145) 03/29/24 07:14 Potassium 3.4 mmol/L (3.5-5.1) L 03/29/24 07:14 Chloride 104 mmol/L (98-107) 03/29/24 07:14 Carbon Dioxide 24 mmol/L (22-29) 03/29/24 07:14 Anion Gap 19.4 (5-19) H 03/29/24 07:14 BUN 5 mg/dL (6-20) L 03/29/24 07:14 Creatinine 0.4 mg/dL (0.5-0.9) L 03/29/24 07:14 GFR Calculation 168.3 mL/min (90-130) H 03/29/24 07:14 Glucose 101 mg/dL (65-115) 03/29/24 07:14 Calculated Osmolality 295 mOsm/kg (285-295) 03/29/24 07:14 Calcium 8.9 mg/dL (8.5-10.5) 03/29/24 07:14 Total Bilirubin 0.5 mg/dL (0.15-1.2) 03/29/24 07:14 AST 325 U/L (0-32) H 03/29/24 07:14 ALT 122 U/L (0-33) H 03/29/24 07:14 Alkaline Phosphatase 136 U/L (35-105) H 03/29/24 07:14 Total Protein 7.9 g/dL (6.6-8.7) 03/29/24 07:14 Albumin 4.0 g/dL (3.5-5.2) 03/29/24 07:14 Globulin 3.9 g/dL (1.3-4.6) 03/29/24 07:14 HCG, Qual Negative (Negative) 03/29/24 07:27 Salicylates < 0.3 mg/dL (3-10) L 03/29/24 07:14 Acetaminophen < 5.0 ug/mL (10-30) L 03/29/24 07:14 Ethyl Alcohol 334 mg/dL (0-10) H* 03/29/24 07:14 No radiology studies performed this visit Discharge Plan Discharge Patient Disposition: Left Against Medical Advice Clinical Impression: Alcohol use disorder, severe, dependence Prescriptions: No Action Mavyret 100-40 mg tablet 3 tab PO DAILY 56 Days Qty: 168 0RF Rx Instructions: must administer with a meal/food cholecalciferol (vitamin D3) 50 mcg (2,000 unit) capsule 50 mcg PO DAILY Qty: 30 1RF naltrexone 50 mg tablet 50 mg PO DAILY Qty: 30 3RF ciprofloxacin HCl 500 mg tablet 500 mg PO BID 7 Days Qty: 14 0RF cyanocobalamin (vitamin B-12) [Vitamin B-12] 1,000 mcg Tablet 1,000 mcg PO DAILY acetaminophen 500 mg Tablet 1,000 mg PO Q6H PRN (Reason: Pain) Referrals: Jed Luo MD [Primary Care Provider] - Print Language: Bangladeshi Coding Level of Care Code ED Seismograph Supervisor for Leóng Diana
== END 2024-03-29 07:48 | disposition left against medical advice (07) ==
PROVIDERS: Emergency Provider Emergency Medicine; PCP Family Medicine
DX: F10.229 Alcohol dependence with intoxication, unspecified (principal); Y90.8 Blood alcohol level of 240 mg/100 ml or more; J44.9 Chronic obstructive pulmonary disease, unspecified
CPT/HCPCS: 80053; 80307; 81025; 85025; 99283

== ENCOUNTER 2024-06-02 11:08 | Emergency (ER) | payer MEDICARE, MEDICAID, SELFPAY ==
[2024-06-02 11:12] VITALS: BP 141/82; PULSE 105; RESP 16; TEMP 36.6; O2SAT 97; BMI 23.6
--- NOTE | 2024-06-02 11:39 | W.ED.ALCOHOL ---
HPI - Alcohol General: Chief Complaint: Alcohol Stated Complaint: ETOH Time Seen by Provider: 06/02/24 11:09 Source: patient and EMS Mode of arrival: EMS Limitations: no limitations History of Present Illness: 53-year-old female is known alcoholic been drinking this morning she had went to the store and was resting comfortably [place] police were called. I did speak to the [employer] police officer he states that she was aggressive with him and did not want to leave states in her here for an evaluation patient is not having hallucinations she is answering all my questions appropriately she denies SI or HI. EMS and [employer] police officer states she did not make any suicidal or homicidal statements to them either. Associated symptoms: Deny abdominal pain, depression, nausea, suicidal ideation or vomiting Related Data Home Medications ?Medication ?Instructions ?Recorded ?Confirmed acetaminophen 500 mg tablet 1,000 mg PO Q6H PRN Pain 11/25/22 05/05/24 cyanocobalamin (vitamin B-12) 1,000 mcg PO DAILY 11/25/22 05/05/24 1,000 mcg tablet (Vitamin B-12) Previous Rx's ?Medication ?Instructions ?Recorded cholecalciferol (vitamin D3) 50 50 mcg PO DAILY #30 caps 03/14/23 mcg (2,000 unit) capsule glecaprevir 100 mg-pibrentasvir 40 3 tab PO DAILY 8 weeks #168 tabs 09/22/ mg tablet (Mavyret) levetiracetam 500 mg tablet 500 mg PO BID 30 days #60 tabs 04/16/24 (Keppra) naltrexone 50 mg tablet 50 mg PO DAILY #30 tabs 04/29/24 Allergies Allergy/AdvReac Type Severity Reaction Status Date / Time hydroxyzine Allergy itching Verified 03/15/24 14:41 Penicillins Allergy ALGY-Hives Verified 03/15/24 14:41 Review of Systems Const: Denies: fever(s), chills, body aches or change in appetite ENMT: Denies: throat pain or dental pain Card: Denies: chest pain Resp: Denies: dyspnea GI: Denies: abdominal pain, nausea, vomiting or diarrhea Musc: Denies: neck pain or back pain Skin/Breast: Denies: rash Neuro: Denies: headache(s) Psych: Denies: depression, visual hallucinations, suicidal ideation or homicidal ideation PFSH ED PFSH: Medical History Psychiatric care Nicotine use disorder Chronic post-traumatic stress disorder (PTSD) Hepatitis C virus infection Bipolar disorder, current episode manic severe with psychotic features Inhalant use disorder, severe, dependence Fibromyalgia muscle pain GERD (gastroesophageal reflux disease) COPD (chronic obstructive pulmonary disease) Alcohol abuse Bipolar disorder with psychotic features Methamphetamine abuse (Unknown) Surgical History H/O cone biopsy of cervix (~05/02/22) 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 Performed by Dr. Grant for BABATUNDE 3 diagnosis. Gastric bypass status for obesity Family History Father Diabetes Stroke Heart disease Mother Hypertension Thyroid disease Brother Heart disease Methamphetamine abuse Denies family history of Colon cancer Ovarian cancer Breast cancer Uterine cancer Social History Smoking and tobacco/nicotine status: never used tobacco/nicotine Alcohol intake: current Substance/Drug Use: former Date of last use: Former cocaine use Physical Exam Const: COMMON NORMALS: no acute distress, patient oriented x3 and healthy appearing HENMT: COMMON NORMALS: normocephalic and atraumatic HEAD & SCALP: normocephalic and atraumatic Eye: COMMON NORMALS: Equal, round and reactive pupils present and EOMs intact bilaterally PUPIL: Yes Equal, round and reactive pupils present Neck/C-Spine: COMMON NORMALS: full ROM and supple Chest: COMMONS NORMALS: normal inspection of the chest and normal palpation of entire chest wall Resp: COMMON NORMALS: normal respiratory effort, No retractions, No use of accessory muscles and clear to auscultation bilaterally AUSCULTATION: clear to auscultation bilaterally Cardio: COMMON NORMALS: regular rate, regular rhythm and No murmurs present (Cardio) RATE: regular rate RHYTHM: regular rhythm GI: COMMON NORMALS: Normal to inspection, nondistended, normoactive bowel sounds present, Soft to palpation, non-tender and no masses PALPATION: Yes Soft to palpation Extremity: COMMON NORMALS: normal to inspection and full ROM Neuro: COMMON NORMALS: patient oriented x3, moves all extremities and no focal motor deficits Psych: COMMON NORMALS: mental status grossly normal, Normal thought process present and cooperative THOUGHT PROCESS: Normal thought process present Skin: COMMON NORMALS: no rashes or lesions noted and no wounds GENERAL SKIN EXAM: no rashes or lesions noted Course Vital Signs: Vital signs: Vital Signs Temperature 98 F 06/02/24 11:12 Pulse Rate 105 H 06/02/24 11:12 Respiratory Rate 16 06/02/24 11:12 Blood Pressure 141/82 06/02/24 11:12 Pulse Oximetry 97 06/02/24 11:12 Oxygen Delivery Me thod Room Air 06/02/24 11:12 [facility] - Alcohol Medical Decision Making Patient presents for alcohol intoxication she has not had any suicidal or homicidal ideation she is ambulatory here she is not acutely psychotic she is refusing any blood work she stable for discharge at this time she is getting a ride home Medical Records I reviewed the patient's medical records. No radiology studies performed this visit Discharge Plan Discharge Patient Disposition: Home Clinical Impression: Alcoholic intoxication Condition: Stable Prescriptions: No Action Keppra 500 mg tablet 500 mg PO BID 30 Days Qty: 60 2RF Mavyret 100-40 mg tablet 3 tab PO DAILY 56 Days Qty: 168 0RF Rx Instructions: must administer with a meal/food cholecalciferol (vitamin D3) 50 mcg (2,000 unit) capsule 50 mcg PO DAILY Qty: 30 1RF naltrexone 50 mg tablet 50 mg PO DAILY Qty: 30 3RF cyanocobalamin (vitamin B-12) [Vitamin B-12] 1,000 mcg Tablet 1,000 mcg PO DAILY acetaminophen 500 mg Tablet 1,000 mg PO Q6H PRN (Reason: Pain) Discharge Orders: Discharge ED (Routine); Ordered 06/02/24 Ordered By: Laila Potter Referrals: Jed Luo MD [Primary Care Provider] - 4-7 days Discharge Diet: Advance as tolerated Discharge Activity: Resume usual activity Patient Instructions: Alcohol Intoxication (ED) Print Language: Croatian Coding Level of Care Code ED Peer Educator for Elke Ortiz
[2024-06-02 11:46] VITALS: BP 106/60; PULSE 99; O2SAT 97
== END 2024-06-02 11:46 | disposition home or self-care (01) ==
PROVIDERS: Emergency Provider Emergency Medicine; PCP Family Medicine
DX: F10.129 Alcohol abuse with intoxication, unspecified (principal); J44.9 Chronic obstructive pulmonary disease, unspecified
CPT/HCPCS: 99283

== ENCOUNTER 2024-06-02 17:10 | Inpatient (IN) | payer MEDICARE, MEDICAID, SELFPAY ==
[2024-06-02 17:12] VITALS: BP 115/69; PULSE 76; RESP 18; TEMP 36.8; O2SAT 100; BMI 23.6
--- NOTE | 2024-06-02 17:15 | ED.C_ITS ---
HPI - Psych 2 General: Chief Complaint: Psychiatric Symptoms Stated Complaint: 96 Time Seen by Provider: 06/02/24 17:11 Source: patient and police Limitations: no limitations History of Present Illness: Patient presents with police under 96-hour hold. Patient was seen here earlier for being intoxicated she had went to the crisis center they state that she had been disoriented over there and told them she no longer wants to live anymore. She now denies SI but she did say that to them and they have her under 96-hour hold she does admit to drinking today and has a chronic alcoholic. She has no medical complaints Associated symptoms: Reports depression and suicidal ideation Related Data Home Medications ?Medication ?Instructions ?Recorded ?Confirmed acetaminophen 500 mg tablet 1,000 mg PO Q6H PRN Pain 1 05/05/24 cyanocobalamin (vitamin B-12) 1,000 mcg PO DAILY 11/2505/05/24 1,000 mcg tablet (Vitamin B-12) Previous Rx's ?Medication ?Instructions ?Recorded cholecalciferol (vitamin D3) 50 50 mcg PO DAILY #30 ca ps 03/14/23 mcg (2,000 unit) capsule glecaprevir 100 mg-pibrentasvir 40 3 tab PO DAILY 8 we eks #168 tabs 09/23/23 mg tablet (Mavyret) levetiracetam 500 mg tablet 500 mg PO BID 30 days #60 tabs 04/16/24 (Keppra) naltrexone 50 mg tablet 50 mg PO DAILY #30 tabs 04/18 04/14 Allergies Allergy/AdvReac Type Severity Reaction Status Date / Time hydroxyzine Allergy itching Verified 03/15/24 14:41 Penicillins Allergy ALGY-Hives Verified 03/15/24 14:41 Review of Systems 2 Const: Denies: fever(s), chills, body aches or change in appetite ENMT: Denies: throat pain or dental pain Card: Denies: chest pain Resp: Denies: dyspnea GI: Denies: abdominal pain, nausea, vomiting or diarrhea Musc: Denies: neck pain or back pain Skin/Breast: Denies: rash Neuro: Denies: headache(s) Psych: Reports: depression and suicidal ideation PFS ED 2 PFSH: Medical History Psychiatric care Nicotine use disorder Chronic post-traumatic stress disorder (PTSD) Hepatitis C virus infection Bipolar disorder, current episode manic severe with psychotic features Inhalant use disorder, severe, dependence Fibromyalgia muscle pain GERD (gastroesophageal reflux disease) COPD (chronic obstructive pulmonary disease) Alcohol abuse Bipolar disorder with psychotic features Methamphetamine abuse (Unknown) Surgical History H/O cone biopsy of cervix (~05/02/22) 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 Performed by Dr. Grant for BABATUNDE 3 diagnosis. Gastric bypass status for obesity Family History Father Diabetes Stroke Heart disease Mother Hypertension Thyroid disease Brother Heart disease Methamphetamine abuse Denies family history of Colon cancer Ovarian cancer Breast cancer Uterine cancer Social History Smoking and tobacco/nicotine status: never used tobacco/nicotine Alcohol intake: current Substance/Drug Use: former Date of last use: Former cocaine use Physical Exam 2 Const: COMMON NORMALS: no acute distress, patient oriented x3 and healthy appearing OTHER: intoxicated HENMT: COMMON NORMALS: normocephalic and atraumatic HEAD & SCALP: n ormocephalic and atraumatic Eye: COMMON NORMALS: conjunctivae normal CONJUNCTIVA: Yes conjunctivae normal Neck/C-Spine: COMMON NORMALS: full ROM and supple Chest: COMMONS NORMALS: normal inspection of the chest Resp: COMMON NORMALS: normal respiratory effort Cardio: COMMON NORMALS: regular rate, regular rhythm and No murmurs present (Cardio) RATE: regular rate RHYTHM: regular rhythm Extremity: COMMON NORMALS: normal to inspection and full ROM Neuro: COMMON NORMALS: patient oriented x3, moves all extremities and no focal motor deficits Psych: COMMON NORMALS: mental status grossly normal, Normal thought process present and cooperative THOUGHT PROCESS: Normal thought process present T HOUGHT CONTENT: Yes Suicidality present Skin: COMMON NORMALS: no rashes or lesions noted and no wounds GENERAL SKIN EXAM: no rashes or lesions noted Course 2 Vital Signs: Vital signs: Vital Signs Temperature 98.3 F 06/02/24 17:12 Pulse Rate 76 06/02/24 17:12 Respiratory Rate 18 06/02/24 17:12 Blood Pressure 115/69 06/02/24 17:12 Pulse Oximetry 100 06/02/24 17:12 Oxygen Delivery Me thod Room Air 06/02/24 17:12 MDM - Psych Medical Decision Making Patient presents here with suicidal ideations all alcohol intoxication she is medically cleared I spoke to psychiatry she is placed on a 96-hour hold by crisis center will admit this time Medical Records I reviewed the patient's medical records. Lab Data I reviewed the patient's lab results. 06/02/24 17:19 06/02/24 17:19 Laboratory Results WBC 5.47 10^3/uL (3.29-11.43) 06/02/24 17:19 RBC 3.74 10^6/uL (3.85-5.65) L 06/02/24 17:19 Hgb 11.50 g/dL (11.27-16.99) 06/02/24 17:19 Hct 35.1 % (36-47) L 06/02/24 17:19 MCV 93.9 fl (85-98) 06/02/24 17:19 MCH 30.7 pg (27-33) 06/02/24 17:19 MCHC 32.8 g/dL (30-55) 06/02/24 17:19 RDW 14.6 % (12.1-15.1) 06/02/24 17:19 Plt Count 77 10^3/cmm (157-399) L 06/02/24 17:19 MPV 10.8 fL (7.4-10.4) H 06/02/24 17:19 Neut % (Auto) 46.1 % 06/02/24 17:19 Lymph % (Auto) 36.2 % 06/02/24 17:19 [place] % (Auto) 13.7 % 06/02/24 17:19 Eos % (Auto) 2.0 % 06/02/24 17:19 Baso % (Auto) 2.0 % 06/02/24 17:19 Neut # (Auto) 2.52 10^3/uL (1.8-7.7) 06/02/24 17:19 Lymph # (Auto) 2.0 10^3/uL (0.8-4.8) 06/02/24 17:19 [place] # (Auto) 0.8 10^3/uL (0.2-0.9) 06/02/24 17:19 Eos # (Auto) 0.1 10^3/uL (0.0-0.8) 06/02/24 17:19 Baso # (Auto) 0.1 10^3/uL (0.0-0.1) 06/02/24 17:19 Nucleated RBC % (auto) 0 % 06/02/24 17:19 Nucleated RBCs # 0.0 /100WBC 06/02/24 17:19 Sodium 141 mmol/L (136-145) 06/02/24 17:19 Potassium 3.9 mmol/L (3.5-5.1) 06/02/24 17:19 Chloride 104 mmol/L (98-107) 06/02/24 17:19 Carbon Dioxide 24 mmol/L (22-29) 06/02/24 17:19 Anion Gap 16.9 (5-19) 06/02/24 17:19 BUN 7 mg/dL (6-20) 06/02/24 17:19 Creatinine 0.4 mg/dL (0.5-0.9) L 06/02/24 17:19 GFR Calculation 168.3 mL/min (90-130) H 06/02/24 17:19 Glucose 100 mg/dL (65-115) 06/02/24 17:19 Calculated Osmolality 290 mOsm/kg (285-295) 06/02/24 17:19 Calcium 8.7 mg/dL (8.5-10.5) 06/02/24 17:19 Total Bilirubin 0.9 mg/dL (0.15-1.2) 06/02/24 17:19 AST 140 U/L (0-32) H 06/02/24 17:19 ALT 56 U/L (0-33) H 06/02/24 17:19 Alkaline Phosphatase 100 U/L (35-105) 06/02/24 17:19 Ammonia 65 umol/L (11-51) H 06/02/24 17:19 Total Protein 8.0 g/dL (6.6-8.7) 06/02/24 17:19 Albumin 4.0 g/dL (3.5-5.2) 06/02/24 17:19 Globulin 4.0 g/dL (1.3-4.6) 06/02/24 17:19 Salicylates < 0.3 mg/dL (3-10) L 06/02/24 17:19 Urine Opiates Screen Negative ng/mL (Negative) 06/02/24 17:16 Acetaminophen < 5.0 ug/mL (10-30) L 06/02/24 17:19 Ur Barbiturates Screen Negative ng/mL (Negative) 06/02/24 17:16 Ur Phencyclidine Scrn Negative ng/mL (Negative) 06/02/24 17:16 Ur Amphetamines Screen Negative ng/mL (Negative) 06/02/24 17:16 U Benzodiazepines Scrn Negative ng/mL (Negative) 06/02/24 17:16 Urine Cocaine Screen Negative ng/mL (Negative) 06/02/24 17:16 U Marijuana (THC) Screen Negative ng/mL (Negative) 06/02/24 17:16 Ethyl Alcohol 245 mg/dL (0-10) H 06/02/24 17:19 No radiology studies performed this visit Discharge Plan Discharge Admit Provider: Jamel Henry Condition: Stable Coding Level of Care Code ED [employer]r for Elke Ortiz
[2024-06-02 17:24] LABS: Basophils # 0.1 10^3/uL (0.0-0.1); Eosinophils # 0.1 10^3/uL (0.0-0.8); Hematocrit 35.1 % (36-47); Lymphocytes % 36.2 %; Mean Corpuscular HGB Conc 32.8 g/dL (30-55); Mean Corpuscular Hemoglobin 30.7 pg (27-33); Mean Corpuscular Volume 93.9 fl (85-98); Mean Platelet Volume 10.8 fL (7.4-10.4); Monocytes # 0.8 10^3/uL (0.2-0.9); Monocytes % 13.7 %; Neutrophils # 2.52 10^3/uL (1.8-7.7); Neutrophils % 46.1 %; Nucleated Red Blood Cells % 0 %; Platelet Count 77 10^3/cmm (157-399); Red Blood Count 3.74 10^6/uL (3.85-5.65); Red Cell Distribution Width 14.6 % (12.1-15.1); White Blood Count 5.47 10^3/uL (3.29-11.43)
[2024-06-02 17:45] LABS: Ammonia 65 umol/L (11-51)
[2024-06-02 17:46] LABS: Alanine Aminotransferase 56 U/L (0-33); Alcohol Level 245 mg/dL (0-10); Alkaline Phosphatase 100 U/L (35-105); Anion Gap 16.9 (5-19); Aspartate Amino Transferase 140 U/L (0-32); Blood Urea Nitrogen 7 mg/dL (6-20); Calcium 8.7 mg/dL (8.5-10.5); Carbon Dioxide 24 mmol/L (22-29); Chloride 104 mmol/L (98-107); Creatinine Clr Calc Pharmacy 180.5881; Glomerular Filtration Rate 168.3 mL/min (90-130); Glucose 100 mg/dL (65-115); Osmolality Calculated 290 mOsm/kg (285-295); Potassium 3.9 mmol/L (3.5-5.1); Sodium 141 mmol/L (136-145); Total Bilirubin 0.9 mg/dL (0.15-1.2)
[2024-06-02 17:54] LABS: Acetaminophen < 5.0 ug/mL (10-30); Salicylate < 0.3 mg/dL (3-10)
[2024-06-02 18:15] LABS: Amphetamines Screen Urine Negative (Negative); Barbiturates Screen Urine Negative (Negative); Benzodiazepines Screen Urine Negative (Negative); Cocaine Screen Urine Negative (Negative); Opiate Screen Urine Negative (Negative); PCP Screen Urine Negative (Negative); THC Screen Urine Negative (Negative)
--- NOTE | 2024-06-02 18:15 | PC.NURSE ---
96 hr rights reviewed with patient @[id number] with assistance of [facility] [employer] Arvin Ospina All education reviewed.Only concerns patient had for HS was wanting to know how she got to the ER. Pt states she was at home and did not go to crisis. She also was worried about which psychiatrist was on shift for her admission into [facility]. Patient copy was left @bedside with pt. Pt provided a sandwich and soda. No further needs.
[2024-06-02 20:21] VITALS: BP 134/81; PULSE 97; RESP 20; O2SAT 96
[2024-06-02 20:40] VITALS: BP 133/68; PULSE 104; RESP 18; O2SAT 97
[2024-06-02 22:00] VITALS: BP 133/68; PULSE 104; RESP 18; O2SAT 97
[2024-06-02] MEDS: trazodone 50 mg Tablet PO (22:19)
[2024-06-02] MEDS: acetaminophen 325 mg Tablet 650 MG PO (22:19)
[2024-06-03] VITALS (7 sets, daily range): BP systolic 99–128; BP diastolic 55–74; PULSE 69–117; RESP 16–18; TEMP 36.6–37.3; O2SAT 95–98
[2024-06-03] MEDS: LORazepam 2 mg Tablet PO (00:09)
[2024-06-03] MEDS: naltrexone hcl 50 mg Tablet PO (08:41)
[2024-06-03] MEDS: multivitamin therapeutic Tablet 1 TAB PO (08:41)
[2024-06-03] MEDS: folic acid 1 mg Tablet PO (08:41)
[2024-06-03] MEDS: pantoprazole DR 40 mg Tablet PO (08:41)
[2024-06-03] MEDS: levETIRAcetam 500 mg Tablet PO ×2 (08:41→17:40)
[2024-06-03] MEDS: gabapentin 100 mg Capsule PO (08:41)
[2024-06-03] MEDS: thiamine 100 mg Tablet PO (08:41)
[2024-06-03] MEDS: acetaminophen 325 mg Tablet 650 MG PO (13:20)
--- NOTE | 2024-06-03 16:43 | W.PM.NPUH&PS ---
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 outpatient follow-up. She had significant improvement during the hospitalization and and she was able to contract for safety outside of the hospital prior to discharge. During the hospitalization, patient had routine laboratory studies which were within normal limits except for few outliers. Additionally there was a general medical evaluation which was also within normal limits and revealed no new acute processes. Discharge Summary: At the time of discharge, she denied psychosis or lethality. Mood and anxiety were well managed. Patient endorsed a plan to avoid all drugs of abuse and follow-up with the aftercare recommendations of the treatment team, but was resistant to the initial sober living options that had been procured. Patient was evaluated and deemed to be absent credible lethality, and was voluntary and was no longer interested in inpatient hospitalization, so she was discharged. Meds NPU Home Medications ?Medication ?Instructions ?Recorded ?Confirmed ?Last Taken ?Type acetaminophen 500 mg tablet 1,000 mg PO Q6H PRN Pain 11/25/22 05/05/24 Unknown History cyanocobalamin (vitamin B-12) 1,000 mcg PO DAILY 11/25/22 05/05/24 Unknown History 1,000 mcg tablet (Vitamin B-12) cholecalciferol (vitamin D3) 50 50 mcg PO DAILY #30 caps 03/14/23 05/05/24 Unknown Rx mcg (2,000 unit) capsule glecaprevir 100 mg-pibrentasvir 40 3 tab PO DAILY 8 weeks #168 tabs 09/23/23 05/05/24 Unknown Rx mg tablet (Mavyret) levetiracetam 500 mg tablet 500 mg PO BID 30 days #60 tabs 04/16/24 04/16/24 Unknown Rx (Keppra) naltrexone 50 mg tablet 50 mg PO DAILY #30 tabs 04/29/24 05/05/24 Unknown Rx gabapentin 100 mg capsule See Rx Instructions .Route .COMPLEX 06/02/24 06/02/24 Unknown History omeprazole 20 mg capsule,delayed See Rx Instructions .Route .COMPLEX 06/02/24 06/02/24 Unknown History release Allergies Allergy/AdvReac Type Severity Reaction Status Date / Time hydroxyzine Allergy itching Verified 03/15/24 14:41 Penicillins Allergy ALGY-Hives Verified 03/15/24 14:41 PFSH NPU PFSH: Medical History Psychiatric care Nicotine use disorder Chronic post-traumatic stress disorder (PTSD) Hepatitis C virus infection Bipolar disorder, current episode manic severe with psychotic features Inhalant use disorder, severe, dependence Fibromyalgia muscle pain GERD (gastroesophageal reflux disease) COPD (chronic obstructive pulmonary disease) Alcohol abuse Bipolar disorder with psychotic features Methamphetamine abuse (Unknown) Surgical History H/O cone biopsy of cervix (~05/02/22) 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 Performed by Dr. Grant for BABATUNDE 3 diagnosis. Gastric bypass status for obesity Family History Father Diabetes Stroke Heart disease Mother Hypertension Thyroid disease Brother Heart disease Methamphetamine abuse Denies family history of Colon cancer Ovarian cancer Breast cancer Uterine cancer Social History Smoking and tobacco/nicotine status: never used tobacco/nicotine Alcohol intake: current Substance/Drug Use: former Date of last use: Former cocaine use Mental Status Exam MSE Comments: This is a slender white female in hospital scrubs with limited grooming/disheveled appearance and fair eye contact. No abnormal involuntary motor movements appreciated. She was cooperative with exam in no acute distress. Speech was normal in rate and loud with mild slurring of speech. Mood described as fine. affect is mood congruent and euthymic. Thought process was linear and logical. Thought content: patient denies any suicidal or homicidal ideation, no delusions reported or noted. Attention span was poor. Registration 3/3, recall after 5 minutes was 2/3 . She is alert and oriented to person and place but not date or month. Insight and judgment are poor. Impulse control is limited versus impaired.? Vitals/I&O/Wt Last Vital Signs Temp 98.7 F 06/03/24 11:56 Pulse 86 06/03/24 11:56 Resp 16 06/03/24 11:56 BP 128/69 06/03/24 11:56 Pulse Ox 97 06/03/24 11:56 O2 Del Method Room Air 06/03/24 11:56 Weight last 48 hrs Weight 72.575 kg Data NPU 06/02/24 17:19 06/02/24 17:19 A&P Assessment and plan (1) Alcohol use disorder, severe, dependence: (2) Depression: Qualifiers: Depression Type: unspecified Qualified Code(s): F32.A - Depression, unspecified Plan This is a 53 year old white female with a long history of alcohol addiction and significant life disruption secondary to alcohol use currently admitted with suicidal ideation with a blood alcohol level of 255 and history of signficant alcohol withdrawal symptoms. 1. Restart outpatient medications. 2. Encourage individual, group and milieu therapy 3. Continue q-15 minute check for safety 4. Recommend sober living treatment at the highest level of care to which the patient is willing to commit. 5. CIWA protocol. PDMP PDMP Reviewed: Not Reviewed Involuntary Hold Information Hold Status: Legal Status: 96 Hour Hold Date/Time Hold Expires: 06/08/24@ 17:13 96 Hour Hold: 96 Hour Involuntary Admission: No Attestations NPU Medical Necessity Statement*: Inpatient hospitalization is medically necessary and the clinically appropriate intervention at this time. We will monitor medications and make changes as indicated. The patient will be here for at least 2 midnights. The patient's likely length of stay is 3-4 days. Coding [facility] Alcohol use disorder, severe, dependence F10.20 Depression F32.A Depression Type: unspecified
[2024-06-03] MEDS: OLANZapine 5 mg ODT PO (19:59)
[2024-06-03] MEDS: trazodone 50 mg Tablet PO (19:59)
[2024-06-04] VITALS: BP 102/65; PULSE 83; RESP 16; TEMP 36.8; O2SAT 98
[2024-06-04 04:00] VITALS: BP 113/57; PULSE 72; RESP 16; TEMP 36.8; O2SAT 97
[2024-06-04 07:17] VITALS: BP 116/67; PULSE 69; RESP 16; TEMP 36.6; O2SAT 96
[2024-06-04] MEDS: naltrexone hcl 50 mg Tablet PO (08:39)
[2024-06-04] MEDS: multivitamin therapeutic Tablet 1 TAB PO (08:39)
[2024-06-04] MEDS: pantoprazole DR 40 mg Tablet PO (08:39)
[2024-06-04] MEDS: folic acid 1 mg Tablet PO (08:39)
[2024-06-04] MEDS: gabapentin 100 mg Capsule PO (08:39)
[2024-06-04] MEDS: thiamine 100 mg Tablet PO (08:39)
[2024-06-04] MEDS: levETIRAcetam 500 mg Tablet PO ×2 (08:39→17:09)
[2024-06-04 11:49] VITALS: BP 103/69; PULSE 119; RESP 16; TEMP 36.2; O2SAT 96
--- NOTE | 2024-06-04 14:16 | P.NPUPN_ITS ---
Subjective NPU 2 Subjective: 53-year-old female admitted with signifi cant alcohol consumption with a history of serious alcohol related withdrawal seizures and reports of suicidal ideation. The patient had minimized any suicidal ideation at this time. She had reported having a myriad of things to do as she had stated that she was being kicked out of her home. The patient remained here currently on involuntary hold. The patient reported no suicidal thoughts at this time. She had reported minimal interest in treatment for alcohol abuse.She had reported that her tolerance had decreased and that she was no longer in danger from hepatitis as she had had that treated recently. She had minimized any use of methamphetamine recently. Mental Status Exam 2 MSE Comments: This is a slender white female in hospital scrubs with limited grooming/disheveled appearance and fair eye contact. No abnormal involuntary motor movements appreciated. She was cooperative with exam in no acute distress. Speech was normal in rate and loud with mild slurring of speech. Mood described as great. affect is mood congruent and euthymic. Thought process was linear and logical. Thought content: patient denies any suicidal or homicidal ideation, no delusions reported or noted. Attention span was poor. Registration 3/3, recall after 5 minutes was 2/3 . She is alert and oriented to person and place but not date or month. Insight and judgment are poor. Impulse control is limited versus impaired.? Vitals/I&O/Wt Last Vital Signs Temp 97.2 F L 06/04/24 11:49 Pulse 119 H 06/04/24 11:49 Resp 16 06/04/24 11:49 BP 103/69 06/04/24 11:49 Pulse Ox 96 06/04/24 11:49 O2 Del Method Room Air 06/04/24 11:49 Weight last 48 hrs Weight 72.575 kg Data NPU 06/02/24 17:19 06/02/24 17:19 A&P Assessment and plan (1) Alcohol use disorder, severe, dependence: (2) Depression: Qualifiers: Depression Type: unspecified Qualified Code(s): F32.A - Depression, unspecified Plan This is a 53 year old white female with a long history of alcohol addiction and significant life disruption secondary to alcohol use currently admitted with suicidal ideation with a blood alcohol level of 245 and history of signficant alcohol withdrawal symptoms. 1. Restart outpatient medications. Likely discharge after 96 hours. 2. Encourage individual, group and milieu therapy 3. Continue q-15 minute check for safety 4. Recommend sober living treatment at the highest level of care to which the patient is willing to commit. 5. [employer] protocol. PDMP PDMP Reviewed: Not Reviewed Involuntary Hold Information 2 Hold Status: Legal Status: 96 Hour Hold Date/Time Hold Expires: 06/08/24@ 17:13 96 Hour Hold: 96 Hour Involuntary Admission: No Attestations NPU 2 Medical Necessity Statement*: Inpatient hospitalization is medically necessary and the clinically appropriate intervention at this time. We will monitor medications and make changes as indicated. The patient's likely length of stay is 3-4 days. Coding Level of Care Code Acute Code for [facility] Fwd Diagnoses Alcohol use disorder, severe, dependence F10.20 Depression F32.A Depression Type: unspecified
--- NOTE | 2024-06-04 14:16 | PC.NURSE ---
NEW ORDERS RECEIVED FROM DR. LOPEZ FOR NASAL SALINE SPRAY FOR NOSTRILS 1-2 SPRAYS QID PRN FOR NASAL DRYNESS, TRIPLE ANTIBIOTIC OINTMENT TO AFFECTED AREAS BID PRN. THIS RN DID CONTACT [facility] TO CONFIRM MEDICATIONS PER PT REQUEST DUE TO PT STATING HER GABAPENTIN WAS NOT BEING GIVEN LIKE I USUALLY TAKE IT. PHARMACY STATED THAT PT IS A HIT OR MISS ON PICKING UP MEDICATIONS. THE LAST TIME PT PICKED UP MEDICATIONS WAS 04/28/24 AND IT WAS FOR GABAPETIN 100 MG TAKE 2 CAPS PO TID. PT IS REQUESTING THE DR. BEE THIS BETTINA. THIS RN WILL NOTIFY DR. LOPEZ WHEN HE COMES BACK TO THE NURSES STATION. PT EDUCATED ON NEW ORDERS. VERBALIZED UNDERSTANDING.
[2024-06-04] MEDS: neomycin-poly-bacitracin oint 28 gm 1 APPLIC TOPICAL (14:31)
[2024-06-04] MEDS: saline nasal spray 44mL Btl 1 SPRAY NASAL (15:02)
[2024-06-04 15:34] VITALS: BP 135/73; PULSE 76; RESP 16; TEMP 36.9; O2SAT 94
[2024-06-04] MEDS: gabapentin 100 mg Capsule 200 MG PO ×2 (16:17→20:36)
[2024-06-04] MEDS: haloperidol 5 mg Tablet PO (17:22)
[2024-06-04] MEDS: benztropine 1 mg Tablet PO (17:22)
[2024-06-04 20:00] VITALS: BP 108/51; PULSE 80; RESP 16; TEMP 36.8; O2SAT 97
[2024-06-04] MEDS: OLANZapine 5 mg ODT PO (20:36)
[2024-06-05] VITALS: BP 105/59; PULSE 86; RESP 16; TEMP 36.9; O2SAT 97
[2024-06-05] MEDS: neomycin-poly-bacitracin oint 28 gm 1 APPLIC TOPICAL (01:36)
[2024-06-05 04:00] VITALS: BP 109/88; PULSE 70; RESP 16; TEMP 36.5; O2SAT 97
[2024-06-05] MEDS: multivitamin therapeutic Tablet 1 TAB PO (07:34)
[2024-06-05] MEDS: gabapentin 100 mg Capsule 200 MG PO ×3 (07:35→20:56)
[2024-06-05] MEDS: levETIRAcetam 500 mg Tablet PO ×2 (07:35→17:04)
[2024-06-05] MEDS: thiamine 100 mg Tablet PO (07:35)
[2024-06-05] MEDS: folic acid 1 mg Tablet PO (07:35)
[2024-06-05] MEDS: pantoprazole DR 40 mg Tablet PO (07:35)
[2024-06-05] MEDS: naltrexone hcl 50 mg Tablet PO (07:35)
[2024-06-05 08:00] VITALS: BP 102/63; PULSE 78; RESP 16; O2SAT 96
[2024-06-05 12:00] VITALS: BP 103/59; PULSE 65; RESP 17; O2SAT 98
--- NOTE | 2024-06-05 15:09 | P.NPUPN_ITS ---
Subjective NPU 2 Subjective: Patient presented today reporting that she is doing fine and that she wants to leave so that she can get back to packing and moving. She never expressed that a single moment of interest in doing something to address her clear problem with alcohol and increase the likelihood that it does not occur again. She focus very much on the fact that this time that she drank too much she was celebrating. She even at 1 point challenges procedure writer come on, have not you ever celebrated. She denied any side effects to the medication and continued allow to be for discharge as soon as possible. Mental Status Exam 2 MSE Comments: This is a slender white female in hospital scrubs with adequate grooming and eye contact. No abnormal involuntary motor movements appreciated except for mild psychomotor retardation. She was cooperative with exam in no acute distress. Speech was normal in rate and volume and no slurring of speech noted. Mood described as pretty good, affect is congruent. Thought process was linear and logical today. Thought content: patient denies any suicidal or homicidal ideation, no delusions reported or noted. Attention and concentration are intact and memory is mostly reliable but none were formally tested. She is alert and oriented to person and place and time today. Insight and judgment are limited. Impulse control is limited. Vitals/I&O/Wt Last Vital Signs Temp 97.7 F 06/05/24 04:00 Pulse 65 06/05/24 12:00 Resp 17 06/05/24 12:00 BP 103/59 06/05/24 12:00 Pulse Ox 98 06/05/24 12:00 O2 Del Method Room Air 06/05/24 04:00 Data NPU 06/02/24 17:19 06/02/24 17:19 A&P Assessment and plan (1) Alcohol use disorder, severe, dependence: (2) Depression: Qualifiers: Depression Type: unspecified Qualified Code(s): F32.A - Depression, unspecified Plan This is a 53 year old white female with a long history of alcohol addiction and significant life disruption secondary to alcohol use currently admitted with suicidal ideation with a blood alcohol level of 245 and history of signficant alcohol withdrawal symptoms. 1. Restart outpatient medications. Likely discharge by the end of the 96-hour hold. 2. Encourage individual, group and milieu therapy 3. Continue q-15 minute check for safety 4. Recommend sober living treatment at the highest level of care to which the patient is willing to commit. 5. CIWA protocol. 6. She continues to demonstrate very limited insight focusing on everyone else being the reason why certain things happen and very much understanding the impact of alcohol on why things have been going well at times for her. She continues to be resistant to any kind of increased sober living treatment PDMP PDMP Reviewed: Not Reviewed Involuntary Hold Information 2 Hold Status: Legal Status: 96 Hour Hold Date/Time Hold Expires: 06/08/24@ 17:13 96 Hour Hold: 96 Hour Involuntary Admission: No Attestations NPU 2 Medical Necessity Statement*: Inpatient hospitalization is medically necessary and the clinically appropriate intervention at this time. We will monitor medications and make changes as indicated. The patient's likely length of stay is 2-3 days. Coding Level of Care Code Acute Code for g Fwd Diagnoses Alcohol use disorder, severe, dependence F10.20 Depression F32.A Depression Type: unspecified
[2024-06-05 16:00] VITALS: BP 112/50; PULSE 98; RESP 18; TEMP 36.8; O2SAT 97
[2024-06-05] MEDS: acetaminophen 325 mg Tablet 650 MG PO (16:55)
[2024-06-05 20:00] VITALS: BP 104/66; PULSE 100; RESP 17; TEMP 37.1; O2SAT 95
[2024-06-05] MEDS: trazodone 50 mg Tablet PO (20:56)
[2024-06-05] MEDS: OLANZapine 5 mg ODT PO (20:57)
[2024-06-05] MEDS: haloperidol 5 mg Tablet PO (23:28)
[2024-06-05] MEDS: benztropine 1 mg Tablet PO (23:28)
[2024-06-06] MEDS: trazodone 50 mg Tablet PO ×2 (00:37→20:59)
[2024-06-06 06:00] VITALS: BP 117/69; PULSE 93; RESP 16; TEMP 36.5; O2SAT 95
[2024-06-06] MEDS: thiamine 100 mg Tablet PO (08:23)
[2024-06-06] MEDS: multivitamin therapeutic Tablet 1 TAB PO (08:23)
[2024-06-06] MEDS: naltrexone hcl 50 mg Tablet PO (08:23)
[2024-06-06] MEDS: gabapentin 100 mg Capsule 200 MG PO ×3 (08:23→20:59)
[2024-06-06] MEDS: folic acid 1 mg Tablet PO (08:23)
[2024-06-06] MEDS: levETIRAcetam 500 mg Tablet PO ×2 (08:23→18:24)
[2024-06-06] MEDS: pantoprazole DR 40 mg Tablet PO (08:23)
--- NOTE | 2024-06-06 10:17 | DCPLANNER ---
Imm was given to pt and rights explained. Copy placed in pts chart.
[2024-06-06 14:00] VITALS: BP 94/65; PULSE 65; RESP 15; TEMP 37.1; O2SAT 99
--- NOTE | 2024-06-06 15:37 | PC.NURSE ---
Patient reports that after she received zyprexa last night. After receiving zyprexa, patient said that she experienced continuous songs in her head. patient said this continued until she took trazodone. After that, the music went away. Patient reports that during a previous visit at the NPU, a medication was taken off of her MAR for causing this same issue. Dr. Paniagua notified.
[2024-06-06] MEDS: ondansetron 4 MG Tablet PO (17:20)
[2024-06-06] MEDS: calcium carbonate 500 mg Chew Tablet 1000 MG PO (17:31)
--- NOTE | 2024-06-06 18:37 | W.PM.NPUPNS ---
Subjective NPU Subjective: Patient presented today reporting that she is doing fine. She continued to perseverate about being discharged because she had things to do from the standpoint of getting moved out. We discussed that her landlord knows she is in the hospital and would have to take that into consideration and it comes to her moving out. She expressed that she believes he would just take her stuff and get rid of it if she is not at home. We acknowledged that this would be illegal. We discussed consideration of discharge for tomorrow after talking to the landlord but that she would be discharged within her 96-hour hold. The possibility of discharge tomorrow. She denied any side effects of the medication and continued to be quite ambivalent about sober living treatment. Mental Status Exam MSE Comments: This is a slender white female in hospital scrubs with adequate grooming and eye contact. No abnormal involuntary motor movements appreciated except for mild psychomotor retardation. She was cooperative with exam in no acute distress. Speech was normal in rate and volume and no slurring of speech noted. Mood described as pretty good, affect is congruent. Thought process was linear and logical today. Thought content: patient denies any suicidal or homicidal ideation, no delusions reported or noted. Attention and concentration are intact and memory is mostly reliable but none were formally tested. She is alert and oriented to person and place and time today. Insight and judgment are limited. Impulse control is limited. Vitals/I&O/Wt Last Vital Signs Temp 98.8 F 06/06/24 14:00 Pulse 65 06/06/24 14:00 Resp 15 06/06/24 14:00 BP 94/65 06/06/24 14:00 Pulse Ox 99 06/06/24 14:00 O2 Del Method Room Air 06/06/24 14:00 Weight last 48 hrs Weight 68.039 kg Data NPU 06/02/24 17:19 06/02/24 17:19 A&P Assessment and plan (1) Alcohol use disorder, severe, dependence: (2) Depression: Qualifiers: Depression Type: unspecified Qualified Code(s): F32.A - Depression, unspecified Plan This is a 53 year old white female with a long history of alcohol addiction and significant life disruption secondary to alcohol use currently admitted with suicidal ideation with a blood alcohol level of 245 and history of signficant alcohol withdrawal symptoms. 1. Restart outpatient medications. Likely discharge by the end of the 96-hour hold. Will consider discharge tomorrow. 2. Encourage individual, group and milieu therapy 3. Continue q-15 minute check for safety 4. Recommend sober living treatment at the highest level of care to which the patient is willing to commit. 5. CIWA protocol. 6. She continues to demonstrate very limited insight focusing on everyone else being the reason why certain things happen and very much understanding the impact of alcohol on why things have been going well at times for her. She continues to be resistant to any kind of increased sober living treatment PDMP PDMP Reviewed: Not Reviewed Involuntary Hold Information Hold Status: Legal Status: 96 Hour Hold Date/Time Hold Expires: 06/08/24@ 17:13 96 Hour Hold: 96 Hour Involuntary Admission: No Attestations NPU Medical Necessity Statement*: Inpatient hospitalization is medically necessary and the clinically appropriate intervention at this time. We will monitor medications and make changes as indicated. The patient's likely length of stay is 1-2 days. Coding Level of Care Code Acute Code for [facility] Fwd Diagnoses Alcohol use disorder, severe, dependence F10.20 Depression F32.A Depression Type: unspecified
[2024-06-06 20:06] VITALS: BP 113/80; PULSE 90; RESP 18; O2SAT 98
[2024-06-06] MEDS: saline nasal spray 44mL Btl 1 SPRAY NASAL (20:59)
[2024-06-06] MEDS: haloperidol 5 mg Tablet PO (20:59)
[2024-06-06] MEDS: acetaminophen 325 mg Tablet 650 MG PO (21:08)
[2024-06-06] MEDS: benztropine 1 mg Tablet PO (21:08)
[2024-06-06] MEDS: neomycin-poly-bacitracin oint 28 gm 1 APPLIC TOPICAL (21:09)
[2024-06-07 06:00] VITALS: BP 108/63; PULSE 96; RESP 16; O2SAT 96
[2024-06-07] MEDS: multivitamin therapeutic Tablet 1 TAB PO (09:13)
[2024-06-07] MEDS: levETIRAcetam 500 mg Tablet PO ×2 (09:13→17:49)
[2024-06-07] MEDS: gabapentin 100 mg Capsule 200 MG PO ×3 (09:13→21:10)
[2024-06-07] MEDS: folic acid 1 mg Tablet PO (09:13)
[2024-06-07] MEDS: pantoprazole DR 40 mg Tablet PO (09:14)
[2024-06-07] MEDS: thiamine 100 mg Tablet PO (09:14)
[2024-06-07] MEDS: naltrexone hcl 50 mg Tablet PO (09:14)
[2024-06-07 14:00] VITALS: BP 120/42; PULSE 94; RESP 17; TEMP 37.1; O2SAT 95
[2024-06-07] MEDS: acetaminophen 325 mg Tablet 650 MG PO (16:11)
--- NOTE | 2024-06-07 17:56 | PC.NURSE ---
Agitation Patient said that she is going to haunt the unit when she dies. Patient says that we have failed her multiple times. Patient angry that she is still on the unit. This nurse informed patient that Dr. Paniagua wants to hear from Kin, her landlord first. This nurse attempted to contact Kin, leaving messages. Patient said that Kin is working late on the sewage lines. Patient says that nobody trusts her, believes her. Patient says that professionals can't always be trusted. After a while, patient returned to [facility] and told this nurse that she is willing to got to [facility] for inpatient alcohol rehab. patient says she has a major problem with alcohol.
[2024-06-07] MEDS: nicotine 4 mg lozenge MUCOUS MEM (18:21)
[2024-06-07 19:34] VITALS: BP 115/56; PULSE 70; RESP 16; TEMP 37; O2SAT 97
--- NOTE | 2024-06-07 19:44 | P.NPUPN_ITS ---
Subjective NPU 2 Subjective: Patient presented today reporting that things are fine. She actually began speaking about the possibility of going to rehab which was a significant departure from previous conversations. However she reports that she has a meeting with some program that supposed to assist her in getting a job and that she does not want to miss that appointment. We discussed working with the social work team tomorrow to understand what this program is and if this is a situation that can be passed up and rescheduled. Additionally we discussed the possibility of finding a rehab bed and determining whether she would still go home or not with her staying being preferred. We also discussed real concerns about her sobriety and whether she can leave the hospital and maintain her sobriety which she acknowledges she probably could. She denied any side effects to the medication. Mental Status Exam 2 MSE Comments: This is a slender white female in hospital scrubs with adequate grooming and eye contact. No abnormal involuntary motor movements appreciated except for mild psychomotor retardation. She was cooperative with exam in no acute distress. Speech was normal in rate and volume and no slurring of speech noted. Mood described as pretty good, affect is congruent. Thought process was linear and logical today. Thought content: patient denies any suicidal or homicidal ideation, no delusions reported or noted. Attention and concentration are intact and memory is mostly reliable but none were formally tested. She is alert and oriented to person and place and time today. Insight and judgment are limited. Impulse control is limited. Vitals/I&O/Wt Last Vital Signs Temp 98.6 F 06/07/24 19:34 Pulse 70 06/07/24 19:34 Resp 16 06/07/24 19:34 BP 115/56 06/07/24 19:34 Pulse Ox 97 06/07/24 19:34 O2 Del Method Room Air 06/07/24 19:34 Weight last 48 hrs Weight 68.039 kg Data NPU 06/02/24 17:19 06/02/24 17:19 A&P Assessment and plan (1) Alcohol use disorder, severe, dependence: (2) Depression: Qualifiers: Depression Type: unspecified Qualified Code(s): F32.A - Depression, unspecified Plan This is a 53 year old white female with a long history of alcohol addiction and significant life disruption secondary to alcohol use currently admitted with suicidal ideation with a blood alcohol level of 245 and history of signficant alcohol withdrawal symptoms. 1. Restart outpatient medications. Likely discharge by the end of the 96-hour hold. Will consider discharge tomorrow. 2. Encourage individual, group and milieu therapy 3. Continue q-15 minute check for safety 4. Recommend sober living treatment at the highest level of care to which the patient is willing to commit. 5. CIWA protocol. 6. She continues to demonstrate very limited insight focusing on everyone else being the reason why certain things happen and very much understanding the impact of alcohol on why things have been going well at times for her. She continues to be resistant to any kind of increased sober living treatment PDMP PDMP Reviewed: Not Reviewed Involuntary Hold Information 2 Hold Status: Legal Status: 96 Hour Hold Date/Time Hold Expires: 06/08/24@ 17:13 96 Hour Hold: 96 Hour Involuntary Admission: No Attestations NPU 2 Medical Necessity Statement*: Inpatient hospitalization is medically necessary and the clinically appropriate intervention at this time. We will monitor medications and make changes as indicated. The patient's likely length of stay is 1-2 days. Coding Level of Care Code Acute Code for [facility] Fwd Diagnoses Alcohol use disorder, severe, dependence F10.20 Depression F32.A Depression Type: unspecified
[2024-06-07] MEDS: LORazepam 2 mg Tablet PO (21:10)
[2024-06-07] MEDS: trazodone 50 mg Tablet PO (21:10)
[2024-06-07] MEDS: benztropine 1 mg Tablet PO (21:10)
[2024-06-07] MEDS: haloperidol 5 mg Tablet PO (21:10)
[2024-06-07] MEDS: saline nasal spray 44mL Btl 1 SPRAY NASAL (21:11)
[2024-06-08 06:00] VITALS: BP 100/50; PULSE 74; RESP 18; TEMP 36.6; O2SAT 96
[2024-06-08] MEDS: gabapentin 100 mg Capsule 200 MG PO ×2 (09:19→14:00)
[2024-06-08] MEDS: thiamine 100 mg Tablet PO (09:19)
[2024-06-08] MEDS: levETIRAcetam 500 mg Tablet PO ×2 (09:19→17:19)
[2024-06-08] MEDS: pantoprazole DR 40 mg Tablet PO (09:19)
[2024-06-08] MEDS: folic acid 1 mg Tablet PO (09:19)
[2024-06-08] MEDS: multivitamin therapeutic Tablet 1 TAB PO (09:19)
[2024-06-08] MEDS: naltrexone hcl 50 mg Tablet PO (09:19)
[2024-06-08] MEDS: nicotine 21 mg Patch 1 PATCH TRANSDERMA (13:59)
[2024-06-08 14:00] VITALS: BP 118/68; PULSE 100; RESP 18; TEMP 36.7; O2SAT 95
--- NOTE | 2024-06-08 16:43 | DCPLANNER ---
Imm was given to pt and rights explained. Copy placed in pts chart.
--- NOTE | 2024-06-08 18:51 | W.PM.NPUDCS ---
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 She decided vet and to move forward with her plan to move and await that opening that likely will not be until June 23. We continued her previous medications without changes. She worked with the treatment team for appropriate outpatient follow-up. She had significant improvement during the hospitalization and and she was able to contract for safety outside of the hospital prior to discharge. During the hospitalization, patient had routine laboratory studies which were within normal limits except for few outliers. Additionally there was a general medical evaluation which was also within normal limits and revealed no new acute processes. Discharge Summary: At the time of discharge, she denied psychosis or lethality. Mood and anxiety were well managed. Patient endorsed a plan to avoid all drugs of abuse and follow-up with the aftercare recommendations of the treatment team. Patient was evaluated and deemed to be absent credible lethality, and was voluntary and was no longer interested in inpatient hospitalization, so she was discharged. Involuntary Hold Information Hold Status: Legal Status: 96 Hour Hold Date/Time Hold Expires: 06/08/24@ 17:13 96 Hour Hold: 96 Hour Involuntary Admission: No Mental Status Exam MSE Comments: This is a slender white female in hospital scrubs with adequate grooming and eye contact. No abnormal involuntary motor movements appreciated except for mild psychomotor retardation. She was cooperative with exam in no acute distress. Speech was normal in rate and volume and no slurring of speech noted. Mood described as pretty good, affect is congruent. Thought process was linear and logical today. Thought content: patient denies any suicidal or homicidal ideation, no delusions reported or noted. Attention and concentration are intact and memory is mostly reliable but none were formally tested. She is alert and oriented to person and place and time today. Insight and judgment are limited. Impulse control is limited. Discharge Data Studies Completed and Pending: Laboratory Results WBC 5.47 10^3/uL (3.2 9-11.43) 06/02/24 17:19 RBC 3.74 10^6/uL (3.8 5-5.65) L 06/02/24 17:19 Hgb 11.50 g/dL (11.27 -16.99) 06/02/24 17:19 Hct 35.1 % (36-47) L 06/02/24 17:19 MCV 93.9 fl (85-98) 06/02/24 17:19 MCH 30.7 pg (27-33) 06/02/24 17:19 MCHC 32.8 g/dL (30-55) 06/02/24 17:19 RDW 14.6 % (12.1-15.1 ) 06/02/24 17:19 Plt Count 77 10^3/cmm (157- 399) L 06/02/24 17:19 MPV 10.8 fL (7.4-10.4 ) H 06/02/24 17:19 Neut % (Auto) 46.1 % 06/02/24 17:19 Lymph % (Auto) 36.2 % 06/02/24 17:19 Bee % (Auto) 13.7 % 06/02/24 17:19 Eos % (Auto) 2.0 % 06/02/24 17:19 Baso % (Auto) 2.0 % 06/02/24 17:19 Neut # (Auto) 2.52 10^3/uL (1.8 -7.7) 06/02/24 17:19 Lymph # (Auto) 2.0 10^3/uL (0.8- 4.8) 06/02/24 17:19 Bee # (Auto) 0.8 10^3/uL (0.2- 0.9) 06/02/24 17:19 Eos # (Auto) 0.1 10^3/uL (0.0- 0.8) 06/02/24 17:19 Baso # (Auto) 0.1 10^3/uL (0.0- 0.1) 06/02/24 17:19 Nucleated RBC % (a uto) 0 % 06/02/24 17:19 Nucleated RBCs # 0.0 /100WBC 06/02/24 17:19 Sodium 141 mmol/L (136-1 45) 06/02/24 17:19 Potassium 3.9 mmol/L (3.5-5 .1) 06/02/24 17:19 Chloride 104 mmol/L (98-10 7) 06/02/24 17:19 Carbon Dioxide 24 mmol/L (22-29) 06/02/24 17:19 Anion Gap 16.9 (5-19) 06/02/24 17:19 BUN 7 mg/dL (6-20) 06/02/24 17:19 Creatinine 0.4 mg/dL (0.5-0. 9) L 06/02/24 17:19 GFR Calculation 168.3 mL/min (90- 130) H 06/02/24 17:19 Glucose 100 mg/dL (65-115 ) 06/02/24 17:19 Calculated Osmolal ity 290 mOsm/kg (285- 295) 06/02/24 17:19 Calcium 8.7 mg/dL (8.5-10 .5) 06/02/24 17:19 Total Bilirubin 0.9 mg/dL (0.15-1 .2) 06/02/24 17:19 AST 140 U/L (0-32) H 06/02/24 17:19 ALT 56 U/L (0-33) H 06/02/24 17:19 Alkaline Phosphata se 100 U/L (35-105) 06/02/24 17:19 Ammonia 65 umol/L (11-51) H 06/02/24 17:19 Total Protein 8.0 g/dL (6.6-8.7 ) 06/02/24 17:19 Albumin 4.0 g/dL (3.5-5.2 ) 06/02/24 17:19 Globulin 4.0 g/dL (1.3-4.6 ) 06/02/24 17:19 Salicylates < 0.3 mg/dL (3-10 ) L 06/02/24 17:19 Urine Opiates Scre en Negative ng/mL (N egative) 06/02/24 17:16 Acetaminophen < 5.0 ug/mL (10-3 0) L 06/02/24 17:19 Ur Barbiturates Sc reen Negative ng/mL (N egative) 06/02/24 17:16 Ur Phencyclidine S crn Negative ng/mL (N egative) 06/02/24 17:16 Ur Amphetamines Sc reen Negative ng/mL (N egative) 06/02/24 17:16 U Benzodiazepines Scrn Negative ng/mL (N egative) 06/02/24 17:16 Urine Cocaine Scre en Negative ng/mL (N egative) 06/02/24 17:16 U Marijuana (THC) Screen Negative ng/mL (N egative) 06/02/24 17:16 Ethyl Alcohol 245 mg/dL (0-10) H 06/02/24 17:19 Vitals: Last Vital Signs Temp 98.1 F 06/08/24 14:00 Pulse 100 06/08/24 14:00 Resp 18 06/08/24 14:00 BP 118/68 06/08/24 14:00 Pulse Ox 95 06/08/24 14:00 O2 Del Method Room Air 06/08/24 14:00 Discharge Plan Discharge Patient Disposition: Home Condition: Stable Prescriptions: New thiamine mononitrate (vit B1) [Vitamin B-1 (mononitrate)] 100 mg Tablet 100 mg PO DAILY 30 Days Qty: 30 1RF trazodone 50 mg Tablet 50 mg PO BEDTIME PRN (Reason: Insomnia) 30 Days Qty: 30 1RF Continued Keppra 500 mg tablet 500 mg PO BID 30 Days Qty: 60 2RF Mavyret 100-40 mg tablet 3 tab PO DAILY 56 Days Qty: 168 0RF Rx Instructions: must administer with a meal/food cholecalciferol (vitamin D3) 50 mcg (2,000 unit) capsule 50 mcg PO DAILY Qty: 30 1RF naltrexone 50 mg tablet 50 mg PO DAILY Qty: 30 3RF cyanocobalamin (vitamin B-12) [Vitamin B-12] 1,000 mcg Tablet 1,000 mcg PO DAILY acetaminophen 500 mg Tablet 1,000 mg PO Q6H PRN (Reason: Pain) omeprazole 20 mg capsule,delayed release(DR/EC) See Rx Instructions .ROUTE .COMPLEX Rx Instructions: take 20mg PO QD gabapentin 100 mg capsule 200 mg PO TID 30 Days Qty: 180 1RF Rx Instructions: TAKE 2 CAPS OF 100 MG CAPSULES TID Discharge Orders: Discharge Order (Routine); Ordered 06/08/24 Ordered By: Suleiman Paniagua Referrals: [facility] [Other] - 06/23/24 10:00 am (Assessment for inpatient. ) [facility] [Outside] Jed Luo MD [Primary Care Provider] - Discharge Diet: Regular Discharge Activity: Resume usual activity Patient Instructions: Opioid Safety Discharge Attestations [facility] Time Spent in Discharge Care*: less than 30 min Specific Discharge Activities: Specific discharge activities: educating patient, discussing with immigration case manager/social workers/dc planners, documenting/other paperwork and evaluating patient/reviewing data Coding Level of Care Code Acute Code for Chg Fwd Diagnoses Alcohol use disorder, severe, dependence F10.20 Depression F32.A Depression Type: unspecified
[2024-06-08 19:37] VITALS: BP 118/68; PULSE 100; RESP 18; TEMP 36.7; O2SAT 95
== END 2024-06-08 19:49 | disposition home or self-care (01) | DRG 897 ==
LOC: ER 18:16 → NP 18:19
PROVIDERS: Admitting Provider Psychiatry & Neurology Psychiatry; Emergency Provider Emergency Medicine; PCP Family Medicine; Visit Provider Psychiatry & Neurology Psychiatry
DX: F10.229 Alcohol dependence with intoxication, unspecified (principal); R45.851 Suicidal ideations; Y90.8 Blood alcohol level of 240 mg/100 ml or more; F31.9 Bipolar disorder, unspecified; M79.7 Fibromyalgia; G62.9 Polyneuropathy, unspecified; K21.9 Gastro-esophageal reflux disease without esophagitis; F17.210 Nicotine dependence, cigarettes, uncomplicated; F17.290 Nicotine dependence, other tobacco product, uncomplicated; F15.10 Other stimulant abuse, uncomplicated; F43.12 Post-traumatic stress disorder, chronic; J44.9 Chronic obstructive pulmonary disease, unspecified; Z86.19 Personal history of other infectious and parasitic diseases; Z98.84 Bariatric surgery status
CPT/HCPCS: 80053; 80306; 80307; 82140; 85025; 97150; 97165; 99285; J9999; Q0162